=== PATIENT | male | born 1935 | race Caucasian/White ===

== ENCOUNTER 2016-07-21 15:09 | Inpatient (IN) ==
[2016-07-21] MEDS ORDERED: 0.9 % Sodium Chloride 1,000 ML IVC ONE (15:23)
[2016-07-21] MEDS ORDERED: 0.9 % Sodium Chloride 1,000 ML ONE (15:24)
[2016-07-21] MEDS ORDERED: Piperacillin/Tazobactam 3.375 GM in D5% in Water (Mini-Bag+) 100 ML IVPB ONE (15:26)
[2016-07-21] MEDS ORDERED: Vancomycin 1,000 MG in D5% in Water 250 ML IVPB ONE ×2 (15:26→16:00)
[2016-07-21 15:45] LABS: Bilirubin,Urine Negative (Negative); Blood,Urine Trace (Negative); Clarity,Urine Turbid (Clear); Color,Urine Dark Yellow (Yellow); Glucose,Urine (UA) Normal (Normal); Ketones,Urine Negative (Negative); Leukocyte Esterase,Urine Large (Negative); Nitrite,Urine Positive (Negative); Protein,Urine 30 mg/dL (Neg-Trace); Specific Gravity,Urine 1.022 (1.010-1.025); Urobilinogen,Urine Normal (Normal)
[2016-07-21 15:47] LABS: Hematocrit 29.6 % (37.5-50.1); Hemoglobin 10.1 g/dL (12.9-16.9); Immature Platelets 1.9 % (1.1-6.1); Mean Corpuscular HGB Conc 34.1 g/dL (31.6-35.5); Mean Corpuscular Volume 85.1 fL (83.0-100.0); Mean Platelet Volume 9.7 fL (9.4-12.4); Platelet Count 558 K/mcL (140-400); Red Blood Count 3.48 M/mcL (4.19-5.50); Red Cell Distribution Width 13.9 % (11.5-14.5)
[2016-07-21 15:47] LABS: Bacteria,Urine Moderate per hpf (None-Few); Hyaline Casts,Urine None Seen per lpf (None-Few); Squamous Epithelial Cell,Urine Moderate per lpf (None-Few); WBC,Urine TNTC per hpf (0-3)
[2016-07-21 15:58] LABS: INR 1.5; Prothrombin Time 16.4 Seconds (9.4-12.1)
[2016-07-21 16:00] LABS: Activated Partial Thrombo Time 24.9 Seconds (26.0-36.0); Alanine Aminotransferase 29 Units/L (0-55); Albumin/Globulin Ratio 0.3 (1.1-2.2); Alkaline Phosphatase 91 Units/L (38-126); Aspartate Amino Transferase 46 Units/L (5-34); BUN/Creatinine Ratio 35 (6-26); Bilirubin,Total 0.5 mg/dL (0.2-1.2); Blood Urea Nitrogen 37 mg/dL (8-26); Calcium 9.6 mg/dL (8.6-10.8); Carbon Dioxide 20 mEq/L (19-29); Chloride 105 mEq/L (98-109); Globulin 4.8 g/dL (2.4-3.5); Glucose 137 mg/dL (70-99); Osmolality,Calculated 285 (280-300); Potassium 5.3 mEq/L (3.5-4.5); Sodium 132 mEq/L (136-145); Total Protein 6.4 g/dL (6.0-8.3); eGFR For African Americans > 60 (> 60); eGFR For Non-African Americans > 60 (> 60)
[2016-07-21 16:01] LABS: Albumin 1.6 g/dL (3.5-5.0)
[2016-07-21 16:13] LABS: Yeast,Urine Few per hpf (None Seen)
[2016-07-21 16:16] LABS: Monocytes # 0.6 K/mcL (0.0-1.3); Neutrophils # 29.5 K/mcL (1.6-8.9); Platelet Estimate Increased (Normal)
[2016-07-21 16:25] LABS: ABG Base Excess -0.9 mEq/L (-2.0 to 3.0); ABG HCO3 23.4 mEQ/L (21-27); ABG Oxygen Saturation 96 % (95-98); ABG PCO2 36 mmHg (35-45); ABG PH 7.42 pH Units (7.32-7.45); ABG PO2 79 mmHg (85-104); ABG TCO2 24.5 mEq/L (20-26)
[2016-07-21 16:26] LABS: Blood Gas FiO2 28 %; Blood Gas Liter Flow 2 L/MIN
--- NOTE | 2016-07-21 16:28 | Emergency Department Note ---
Disposition Clinical Impression: New onset a-fib, Elevated troponin, Pneumonia, Urinary tract infection Disposition: Admitted As Inpatient Referrals: Danny Watt MD [Primary Care Provider] - Forms: ED Satisfaction Letter Altered Mental Status HPI - General Chief Complaint: ED Altered Mental Status Stated Complaint: AMS Time Seen by Provider: 07/21/16 15:16 Nursing Notes Reviewed: Yes Vital Signs Reviewed: Yes - History of Present Illness HPI Narrative: Patient presents complaint of altered mental status. Patient was started the care facility due to recovered from pneumonia. Per nursing report, patient has been more altered and has been not making sense and the staff. They note that his heart rate was elevated and his blood pressure was low. There is report of fevers and decreased appetite. There is no report of any sick contacts. - Related Data Home Medications Medication Instructions Recorded Confirmed Clopidogrel [Plavix] 75 mg PO DAILY 05/29/16 07/21/16 Docusate [Colace] 100 mg PO DAILY 05/29/16 07/21/16 Gabapentin [Neurontin] 300 mg PO HS 05/29/16 07/21/16 GlipiZIDE XL (24 HR) [Glucotrol XL] 10 mg PO BID 05/29/16 07/21/16 Loratadine [Claritin] 10 mg PO DAILY 05/29/16 07/21/16 Naproxen Sodium 550 mg PO BID 05/29/16 07/21/16 Oxybutynin [Ditropan] 5 mg PO DAILY 05/29/16 07/21/16 Calcium Carbonate/Vitamin D3 1 each PO BID 07/21/16 07/21/16 [Calcium 500 + Vit D Caplet] Ipratropium/Albuterol Neb [Duoneb] 3 ml IH Q4H 07/21/16 07/21/16 Levofloxacin [Levaquin] 500 mg PO DAILY 07/21/16 07/21/16 Tamsulosin [Flomax] 0.4 mg PO DAILY 07/21/16 07/21/16 Previous Rx's Medication Instructions Recorded Amlodipine [Norvasc] 5 mg PO DAILY #30 tablet 06/02/16 Atorvastatin [Lipitor] 40 mg PO HS #30 tablet 06/02/16 Allergies Allergy/AdvReac Type Severity Reaction Status Date / Time codeine Allergy Itching Verified 05/29/16 11:05 morphine Allergy Itching Verified 05/29/16 11:05 Limitations: ROS unobtainable due to patients medical condition Past Medical History - Past Medical History Source: nursing notes reviewed Medical history: Reports: CVA, diabetes, hyperlipidemia Psychiatric history: Reports: no psych history - Social History Smoking Status: Former smoker Smokeless Tobacco Status: No Alcohol use: Reports: occasionally Drug use: Reports: none Physical Exam - General Limitations: altered mental status General appearance: in no apparent distress - Head Head exam: atraumatic, normocephalic - Eye Eye exam: Present: normal appearance, PERRL, EOMI - ENT ENT exam: mucous membranes dry - Neck Neck exam: Present: normal inspection, full ROM, trachea midline - Chest Chest inspection: Present: normal inspection, symmetric chest wall rise - Respiratory Respiratory exam: Present: normal lung sounds bilaterally - Cardiovascular Cardiovascular exam: Present: tachycardia, irregular rhythm - Abdominal Exam Abdominal exam: Present: soft, Non-Tender. Absent: tenderness, distention, guarding, rebound, rigidity - Back Exam Back exam: Present: normal inspection. Absent: tenderness - Neurological Exam Neurological exam: Present: other (Limited secondary to patient mental status) - Psychiatric Psychiatric exam: Present: other (Limited secondary to patient mental status) - Skin Skin exam: Present: warm, dry, intact, normal color Course Vital Signs Temperature 99.1 F 07/21/16 15:11 Pulse Rate 125 07/21/16 15:11 Respiratory Rate 16 07/21/16 15:11 Blood Pressure 75/49 07/21/16 15:11 O2 Sat by Pulse Oximetry 90 L 07/21/16 15:11 Temperature 99.1 F 07/21/16 15:11 Pulse Rate 105 07/21/16 18:24 Respiratory Rate 16 07/21/16 18:24 Blood Pressure 99/50 07/21/16 18:24 O2 Sat by Pulse Oximetry 97 07/21/16 18:24 Oxygen Delivery Oxygen Delivery Nasal Cannula Altered Mental Status - Differential Diagnosis Likely: altered mental status, delirium, hypoglycemia, subarachnoid hemorrhage, sepsis - Lab Data Lab results reviewed: Yes I reviewed the patient's lab results. Result diagrams: 07/21/16 15:35 07/21/16 15:35 Lab Results 07/21/16 07/21/16 07/21/16 Range/Units 15:34 15:35 15:35 WBC 30.1 H* D (4.3-11.1) K/mcL RBC 3.48 L (4.19-5.50) M/mcL Hgb 10.1 L (12.9-16.9) g/dL Hct 29.6 L (37.5-50.1) % MCV 85.1 (83.0-100.0) fL MCH 29.0 (28.0-33.3) pg MCHC 34.1 (31.6-35.5) g/dL RDW 13.9 (11.5-14.5) % Plt Count 558 H (140-400) K/mcL MPV 9.7 (9.4-12.4) fL Seg Neutrophils % 98.0 % Lymphocytes % Test Not Performed Monocytes % 2.0 % Neutrophils # 29.5 H (1.6-8.9) K/mcL Lymphocytes # LAW PROFESSOR Monocytes # 0.6 (0.0-1.3) K/mcL Platelet Estimate Increased H (Normal) Immature Plt Fraction 1.9 (1.1-6.1) % PT 16.4 H (9.4-12.1) Seconds INR 1.5 APTT 24.9 L (26.0-36.0) Seconds ABG pH (7.32-7.45) pH Units ABG pCO2 (35-45) mmHg ABG pO2 (85-104) mmHg ABG HCO3 (21-27) mEQ/L ABG Total CO2 (20-26) mEq/L ABG O2 Saturation (95-98) % ABG Base Excess (-2.0 to 3.0) mEq/L Liter Flow L/MIN Blood Gas Modality Inspired O2 % Sodium (136-145) mEq/L Potassium (3.5-4.5) mEq/L Chloride (98-109) mEq/L Carbon Dioxide (19-29) mEq/L BUN (8-26) mg/dL Creatinine (0.72-1.25) mg/dL Est GFR ( Amer) (> 60) Est GFR (Non-Af Amer) (> 60) BUN/Creatinine Ratio (6-26) Glucose (70-99) mg/dL POC Glucose (58-89) Calculated Osmolality (280-300) Lactic Acid (0.5-2.2) mmol/L Calcium (8.6-10.8) mg/dL Total Bilirubin (0.2-1.2) mg/dL AST (5-34) Units/L ALT (0-55) Units/L Alkaline Phosphatase (38-126) Units/L Troponin I (0-0.03) ng/mL Serum Total Protein (6.0-8.3) g/dL Albumin (3.5-5.0) g/dL Globulin (2.4-3.5) g/dL Albumin/Globulin Ratio (1.1-2.2) Urine Color Dark Yellow (Yellow) Urine Clarity Turbid A (Clear) Urine pH 5.0 (5.0-8.0) pH Units Ur Specific [place] 1.022 (1.010-1.025) Urine Protein 30 H (Neg-Trace) mg/dL Urine Glucose (UA) Normal (Normal) mg/dL Urine Ketones Negative (Negative) mg/dL Urine Blood Trace H (Negative) Urine Nitrite Positive A (Negative) Urine Bilirubin Negative (Negative) Urine Urobilinogen Normal (Normal) mg/dL Ur Leukocyte Esterase Large H (Negative) Urine Microscopic RBC 3-5 H (0-3) per hpf Urine Microscopic WBC TNTC H (0-3) per hpf Ur Squamous Epith Cells Moderate H (None-Few) per lpf Urine Bacteria Moderate H (None-Few) per hpf Hyaline Casts None Seen (None-Few) per lpf Urine Yeast Few H (None Seen) per hpf Ur Culture Indicated? YES A (NO) 07/21/16 07/21/16 07/21/16 Range/Units 15:35 15:35 15:35 WBC (4.3-11.1) K/mcL RBC (4.19-5.50) M/mcL Hgb (12.9-16.9) g/dL Hct (37.5-50.1) % MCV (83.0-100.0) fL MCH (28.0-33.3) pg MCHC (31.6-35.5) g/dL RDW (11.5-14.5) % Plt Count (140-400) K/mcL MPV (9.4-12.4) fL Seg Neutrophils % % Lymphocytes % Monocytes % % Neutrophils # (1.6-8.9) K/mcL Lymphocytes # Monocytes # (0.0-1.3) K/mcL Platelet Estimate (Normal) Immature Plt Fraction (1.1-6.1) % PT (9.4-12.1) Seconds INR APTT (26.0-36.0) Seconds ABG pH (7.32-7.45) pH Units ABG pCO2 (35-45) mmHg ABG pO2 (85-104) mmHg ABG HCO3 (21-27) mEQ/L ABG Total CO2 (20-26) mEq/L ABG O2 Saturation (95-98) % ABG Base Excess (-2.0 to 3.0) mEq/L Liter Flow L/MIN Blood Gas Modality Inspired O2 % Sodium 132 L (136-145) mEq/L Potassium 5.3 H (3.5-4.5) mEq/L Chloride 105 (98-109) mEq/L Carbon Dioxide 20 (19-29) mEq/L BUN 37 H (8-26) mg/dL Creatinine 1.05 (0.72-1.25) mg/dL Est GFR ( Amer) > 60 (> 60) Est GFR (Non-Af Amer) > 60 (> 60) BUN/Creatinine Ratio 35 H (6-26) Glucose 137 H (70-99) mg/dL POC Glucose (58-89) Calculated Osmolality 285 (280-300) Lactic Acid 1.5 (0.5-2.2) mmol/L Calcium 9.6 (8.6-10.8) mg/dL Total Bilirubin 0.5 (0.2-1.2) mg/dL AST 46 H (5-34) Units/L ALT 29 (0-55) Units/L Alkaline Phosphatase 91 (38-126) Units/L Troponin I 0.08 H* (0-0.03) ng/mL Serum Total Protein 6.4 (6.0-8.3) g/dL Albumin 1.6 L (3.5-5.0) g/dL Globulin 4.8 H (2.4-3.5) g/dL Albumin/Globulin Ratio 0.3 L (1.1-2.2) Urine Color (Yellow) Urine Clarity (Clear) Urine pH (5.0-8.0) pH Units Ur Specific [place] (1.010-1.025) Urine Protein (Neg-Trace) mg/dL Urine Glucose (UA) (Normal) mg/dL Urine Ketones (Negative) mg/dL Urine Blood (Negative) Urine Nitrite (Negative) Urine Bilirubin (Negative) Urine Urobilinogen (Normal) mg/dL Ur Leukocyte Esterase (Negative) Urine Microscopic RBC (0-3) per hpf Urine Microscopic WBC (0-3) per hpf Ur Squamous Epith Cells (None-Few) per lpf Urine Bacteria (None-Few) per hpf Hyaline Casts (None-Few) per lpf Urine Yeast (None Seen) per hpf Ur Culture Indicated? (NO) 07/21/16 07/21/16 07/21/16 Range/Units 15:44 16:15 17:16 WBC (4.3-11.1) K/mcL RBC (4.19-5.50) M/mcL Hgb (12.9-16.9) g/dL Hct (37.5-50.1) % MCV (83.0-100.0) fL MCH (28.0-33.3) pg MCHC (31.6-35.5) g/dL RDW (11.5-14.5) % Plt Count (140-400) K/mcL MPV (9.4-12.4) fL Seg Neutrophils % % Lymphocytes % Monocytes % % Neutrophils # (1.6-8.9) K/mcL Lymphocytes # Monocytes # (0.0-1.3) K/mcL Platelet Estimate (Normal) Immature Plt Fraction (1.1-6.1) % PT (9.4-12.1) Seconds INR APTT (26.0-36.0) Seconds ABG pH 7.42 (7.32-7.45) pH Units ABG pCO2 36 (35-45) mmHg ABG pO2 79 L (85-104) mmHg ABG HCO3 23.4 (21-27) mEQ/L ABG Total CO2 24.5 (20-26) mEq/L ABG O2 Saturation 96 (95-98) % ABG Base Excess -0.9 (-2.0 to 3.0) mEq/L Liter Flow 2 L/MIN Blood Gas Modality [place] Inspired O2 28 % Sodium (136-145) mEq/L Potassium (3.5-4.5) mEq/L Chloride (98-109) mEq/L Carbon Dioxide (19-29) mEq/L BUN (8-26) mg/dL Creatinine (0.72-1.25) mg/dL Est GFR ( Amer) (> 60) Est GFR (Non-Af Amer) (> 60) BUN/Creatinine Ratio (6-26) Glucose (70-99) mg/dL POC Glucose 126 H (58-89) Calculated Osmolality (280-300) Lactic Acid 1.2 (0.5-2.2) mmol/L Calcium (8.6-10.8) mg/dL Total Bilirubin (0.2-1.2) mg/dL AST (5-34) Units/L ALT (0-55) Units/L Alkaline Phosphatase (38-126) Units/L Troponin I (0-0.03) ng/mL Serum Total Protein (6.0-8.3) g/dL Albumin (3.5-5.0) g/dL Globulin (2.4-3.5) g/dL Albumin/Globulin Ratio (1.1-2.2) Urine Color (Yellow) Urine Clarity (Clear) Urine pH (5.0-8.0) pH Units Ur Specific [place] (1.010-1.025) Urine Protein (Neg-Trace) mg/dL Urine Glucose (UA) (Normal) mg/dL Urine Ketones (Negative) mg/dL Urine Blood (Negative) Urine Nitrite (Negative) Urine Bilirubin (Negative) Urine Urobilinogen (Normal) mg/dL Ur Leukocyte Esterase (Negative) Urine Microscopic RBC (0-3) per hpf Urine Microscopic WBC (0-3) per hpf Ur Squamous Epith Cells (None-Few) per lpf Urine Bacteria (None-Few) per hpf Hyaline Casts (None-Few) per lpf Urine Yeast (None Seen) per hpf Ur Culture Indicated? (NO) - Radiology Data Radiology results reviewed: Yes I reviewed the patient's radiology results. Chest X-Ray 07/21/16 15:18 IMPRESSION: Bibasilar atelectasis or infiltrate. Recommend follow-up imaging to confirm resolution D/ / Casey Farooq MD / Casey Farooq MD Interpreting Provider: Casey Farooq MD Head CT 07/21/16 16:27 IMPRESSION: No evidence of acute intracranial hemorrhage or mass effect. Stable old left cerebral infarcts. Mild cerebral small vessel ischemic disease without significant interval change. D/ / Luis Mata MD / Luis Mata MD Interpreting Provider: Luis Mata MD - EKG Data EKG attestation: Yes I reviewed and interpreted this EKG. Rate: tachycardia Rhythm: A.Fib TPA Checklist - LKW: 3-4.5 hrs Add. Contraindications Patient/family understanding: The patient/family members have been counseled and understood the risk, benefit , and alternatives of treatment. Critical Care Time Total Critical Care Time: 45 Attestation: Critical care performed: Time is exclusive of separately billable procedures. Time includes: direct patient care, patient reassessment, coordination of patient care, interpretation of data (laboratory data, radiology data, and respiratory data), review of patient's medical records, medical consultation and documentation of patient care. Procedures included in critical care time: Procedures excluded from critical care time:
[2016-07-21] MEDS ORDERED: Naloxone 0.4 MG/ML INJ IVP PRN (19:35)
[2016-07-21] MEDS ORDERED: 0.9 % Sodium Chloride 1,000 ML IVC SCH (19:45)
[2016-07-21] MEDS ORDERED: Albuterol 2.5 MG/3 ML NEBULIZER IH PRN (19:46)
[2016-07-21] MEDS ORDERED: Vancomycin 1,000 MG in D5% in Water 250 ML IVPB SCH (20:00)
--- NOTE | 2016-07-21 20:10 | Internal Med History&Physical ---
Date of Encounter: 07/21/16 Time of Encounter: 20:05 Assessment and Plan (1) Sepsis Current visit: Yes Status: Acute Multiple sources of infection, including pneumonia, UTI, and sacral ulcer. HR > 90 at 159 WBC > 12 at 30 Hypotensive. Lactate checked 1.5 and recheck 1.2 Given fluid bolus (30mL X 59kg) of 1750mL Blood cultures drawn Broad spectrum antibiotic initiated with Vancomycin and Zosyn HR came down with fluid bolus and oxygen Patients blood pressure holding at 92/50 Continue IV fluids 0.9NS at 150mL/HR continue broad spectrum antibiotics with vanc, zosyn and levaquin Await culture results Qualifiers: Sepsis type: sepsis due to unspecified organism Qualified Code(s): A41.9 - Sepsis, unspecified organism (2) Healthcare-associated pneumonia Current visit: No Status: Acute Patient with cough, reports he feels like he has something to cough up, but nothing comes up. CXR with bibasilar infiltrates. Lungs with rales and rhonchi on exam. Satting 99% on 2L NC. Broad spectrum antibiotics with Vancomycin, Zosyn, Levaquin titrate O2 to maintain O2 saturation > 92% duoneb treatments QIDR Albuterol Q2 PRN Mucinex BID Incentive spirometer (3) Decubitus ulcer of sacral region, unstageable Current visit: Yes Status: Acute Wet to dry dressing tonight wound team consulted Turn patient Q2 hrs Xray of sacrum and coccyx to evaluate for osteomyelitis consider MRI if Xray inconclusive. Consider consult to surgery for debridement. (4) New onset a-fib Current visit: Yes Status: Acute Patient with tachycardia on presentation to ED. EKG showed Afib with RVR and HR of 159. After fluid administration and oxygen, HR came down to 90s-105. Repeat EKG shows continued Afib with RVR HR 109. 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 Discussed with Dr. Augustine and will give 0.5 digoxin IVP, plus 0.25 digoxin q6hr X 2. Consider consult to cardiology if heart rate does not come down. (5) Elevated troponin Current visit: Yes Status: Acute Initial troponin in ED 0.08. Patient denies chest pain, pressure or palpitation. Initially in Afib with RVR on presentation and patient is septic. Elevation likely stress related but will trend troponins. 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 (6) Hyperkalemia Current visit: Yes Status: Acute Potassium of 5.3. Fluid boluses and continuous fluids given. 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 Recheck chemistry in morning. (7) Urinary tract infection Current visit: Yes Status: Acute Patient with burr catheter for urinary retention. Urine cloudy with mucus. UA reveals UTI. Treating patient with broad spectrum antibiotics, Vanc, levaquin and Zosyn. Await cultures. Qualifiers: Urinary tract infection type: catheter-associated UTI Indwelling urinary catheter type: indwelling urethral catheter Encounter type: initial encounter Qualified Code(s): T83.511A - Infection and inflammatory reaction due to indwelling urethral catheter, initial encounter; N39.0 - Urinary tract infection , site not specified (8) DVT prophylaxis Current visit: No Status: Acute up to Chair TID anti-embolic stockings 5,000u heparin SQ BID Internal Medicine - H&P: HPI Chief complaint: AMS Admitted From: Emergency Dept Plans for Post Hospital Care: Transfer Care Home Facility History of present illness: Mr. Eldridge is a 80 year old male 3 of CVA, type 2 diabetes, hyperlipidemia, Paget's disease, and recent pneumonia presented [facility] department [facility] for altered mental status, fever, hypoglycemia. Evaluation in the emergency department was significant for white count of 30.1, hyperkalemia with potassium of 5.3, elevated troponin of 0.08, EKG showing atrial fibrillation with rapid ventricular response and heart rate of 159. He was hypotensive. Patient has Burr catheter in place. UA shows concern for UTI, chest x-ray showed bilateral basilar infiltrates concerning for pneumonia. Lactic acid was normal at 1.5 with a redraw showing 1.2. Note fluid bolus total of 1750 mL blood cultures were drawn. He was initiated on broad-spectrum antibiotics with vancomycin and Zosyn. He was placed on oxygen and his heart rate came down with fluid bolus and oxygen. On exam patient is alert and oriented, appears dehydrated. Lungs with bilateral rhonchi on expiration. He is satting 99% on 2 L nasal cannula. Heart has regular rhythm rate in the 90s, urine appears cloudy with mucus in Burr bag. He has a large foul-smelling unstageable sacral ulcer. Past Med Surg Social Fam HX - Past Medical History Medical history: CVA, diabetes, hyperlipidemia, other (Paget's disease, urinary retention) Psychiatric history: no psych history - Past Surgical History Surgical History: orthopedic, other (bilateral knee surgeries) - Social History Smoking Status: Former smoker Smokeless Tobacco Status: No Alcohol use: occasionally Drug use: none Current living situation: ECF - Family History Sister Hx Family Endocrine Disorder: Yes Brother Hx Family Cardiac Disorders: Yes Son Living Status: Hx Family Cardiac Disorders: Yes Mother Living Status: Hx Family Endocrine Disorder: Yes Internal Medicine - H&P: Meds Clopidogrel [Plavix] 75 mg PO DAILY 05/29/16 [History] Docusate [Colace] 100 mg PO DAILY 05/29/16 [History] Gabapentin [Neurontin] 300 mg PO HS 05/29/16 [History] GlipiZIDE XL (24 HR) [Glucotrol XL] 10 mg PO BID 05/29/16 [History] Loratadine [Claritin] 10 mg PO DAILY 05/29/16 [History] Naproxen Sodium 550 mg PO BID 05/29/16 [History] Oxybutynin [Ditropan] 5 mg PO DAILY 05/29/16 [History] Amlodipine [Norvasc] 5 mg PO DAILY #30 tablet 06/02/16 [Rx] Atorvastatin [Lipitor] 40 mg PO HS #30 tablet 06/02/16 [Rx] Calcium Carbonate/Vitamin D3 [Calcium 500 + Vit D Caplet] 1 each PO BID [History] Ipratropium/Albuterol Neb [Duoneb] 3 ml IH Q4H 07/21/16 [History] Levofloxacin [Levaquin] 500 mg PO DAILY 07/21/16 [History] Tamsulosin [Flomax] 0.4 mg PO DAILY 07/21/16 [History] Allergies codeine Allergy (Verified 05/29/16 11:05) Itching morphine Allergy (Verified 05/29/16 11:05) Itching All Systems PM: A 10-system review of systems was performed and is negative for pertinent findings except as documented above in the HPI. - Constitutional Constitutional: no chills, no fever(s), no night sweats - EENT Eyes: no change in vision, no discharge, no pain, no photophobia Ears: no ear discharge, no ear pain, no tinnitus Nose, mouth and throat: dry mouth, nasal congestion, no dysphagia, no nasal discharge, no neck pain, no sore throat - Cardiovascular Cardiovascular ROS IM: no chest pain, no diaphoresis, no dyspnea, no lightheadedness, no palpitations, no syncope - Respiratory Respiratory: cough, no dyspnea, no wheezing, no excessive phlegm production - Gastrointestinal Gastrointestinal: no abdominal pain, no diarrhea, no hematemesis, no hematochezia, no melena, no nausea, no vomiting - Musculoskeletal Musculoskeletal ROS IM: deformity (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), no numbness , no tingling - Integumentary Integumentary IM: skin ulcer (large, unstageable, sacral) - Neurological Neurological ROS: no confusion, no convulsions, no focal weakness, no numbness, no tingling, no tremor(s) - Hematologic/Lymphatic Hematologic/Lymphatic: no easy bruising - Constitutional Vitals: Temp Pulse Resp BP Pulse Ox 99.1 F 105 17 92/47 97 07/21/16 15:11 07/21/16 18:24 07/21/16 18:44 07/21/16 18:44 07/21/16 18:24 General appearance: Present: A&O X 3, pleasant, no acute distress - Head Head exam: Present: atraumatic, normocephalic - Eye Eye exam: Present: PERRL, conjuntiva pink, sclera anicteric Pupils: Present: PERRL - Neck Neck exam general surgery: Present: supple, trachea midline. Absent: lymphadenopathy - Respiratory Respiratory exam: Present: rales, rhonchi. Absent: accessory muscle use, wheezes - Cardiovascular Cardiovascular exam: Present: +S1, +S2, tachycardia. Absent: diastolic murmur, irregular rhythm, systolic murmur - GI/Abdominal GI/Abdominal exam: Present: normal bowel sounds, soft, no peritoneal signs. Absent: distended, tenderness - Additional comments: burr catheter in place - Extremities Exam Extremities exam: Present: warm, radial pulses palpable and symetrical. Absent : calf tenderness, cyanotic, pedal edema - Neurological Exam Neurological exam: Present: CN II-XII intact, oriented X3, no focal deficits. Absent: pronater drift, facial droop, speech deficit - Skin Skin exam: Present: dry Additional comments: large, unstageable sacral ulcer, to sub-cutaneous fat with surrounding black necrotic tissue and further nonblanchable erythema. Internal Med - H&P Results - Labs CBC & Chem 7: 07/21/16 15:35 07/21/16 15:35
[2016-07-21] MEDS: Ipratropium/Albuterol Neb 3 ML IH SCH ×2 (20:12→23:40)
[2016-07-21] MEDS ORDERED: Dextrose Gel 15 GM PO PRN ×2 (20:21)
[2016-07-21] MEDS ORDERED: D5% in Water 1,000 ML IV PRN (20:21)
[2016-07-21] MEDS ORDERED: *HR* Dextrose 50 % in Water (Syg) 50 ML SYRINGE IVP PRN (20:21)
[2016-07-21] MEDS ORDERED: *HR* Digoxin 0.5 MG/2 ML AMPUL IVP ONE (21:21)
[2016-07-21 21:28] LABS: Magnesium 2.1 mg/dL (1.6-2.6); Phosphorous 1.7 mg/dL (2.3-4.7)
[2016-07-21] MEDS: Gabapentin 300 MG CAPSULE PO SCH (22:23)
[2016-07-21] MEDS: Famotidine 20 MG TABLET PO SCH (22:24)
[2016-07-21] MEDS: 0.9 % Sodium Chloride 1,000 ML IVC SCH (22:25)
[2016-07-21] MEDS: Levofloxacin 750 MG/150 ML 750 MG/150 ML BAG IVPB SCH (22:25)
[2016-07-22] MEDS: Piperacillin/Tazobactam 3.375 GM in D5% in Water (Mini-Bag+) 100 ML IVPB SCH ×3 (00:10→17:12)
[2016-07-22] MEDS: *HR* Digoxin 0.5 MG/2 ML AMPUL IVP SCH ×2 (03:30→08:40)
[2016-07-22] MEDS: Ipratropium/Albuterol Neb 3 ML IH SCH ×4 (04:23→22:57)
[2016-07-22 04:32] LABS: BUN/Creatinine Ratio 36 (6-26); Blood Urea Nitrogen 35 mg/dL (8-26); Calcium 8.9 mg/dL (8.6-10.8); Carbon Dioxide 17 mEq/L (19-29); Chloride 109 mEq/L (98-109); Glucose 182 mg/dL (70-99); Osmolality,Calculated 285 (280-300); Sodium 131 mEq/L (136-145); eGFR For African Americans > 60 (> 60); eGFR For Non-African Americans > 60 (> 60)
[2016-07-22 04:39] LABS: Hemoglobin 8.7 g/dL (12.9-16.9)
[2016-07-22 04:40] LABS: Hematocrit 26.6 % (37.5-50.1); Mean Corpuscular HGB Conc 32.7 g/dL (31.6-35.5); Mean Corpuscular Hemoglobin 27.9 pg (28.0-33.3); Mean Corpuscular Volume 85.3 fL (83.0-100.0); Mean Platelet Volume 9.8 fL (9.4-12.4); Platelet Count 476 K/mcL (140-400); Red Blood Count 3.12 M/mcL (4.19-5.50); Red Cell Distribution Width 14.2 % (11.5-14.5)
[2016-07-22 04:54] LABS: Thyroid Stimulating Hormone 0.633 mcIU/mL (0.350-4.840)
[2016-07-22 05:33] LABS: Lymphocytes # 0.6 K/mcL (0.6-4.6); Monocytes # 0.6 K/mcL (0.0-1.3); Neutrophils # 26.3 K/mcL (1.6-8.9)
[2016-07-22 05:34] LABS: Hypochromasia Present (Not Present)
[2016-07-22] MEDS: 0.9 % Sodium Chloride 1,000 ML IVC SCH (06:03)
[2016-07-22] MEDS: *HR* Heparin 5,000 UNIT/ML VIAL SQ SCH ×2 (06:04→17:12)
[2016-07-22] MEDS: Vancomycin 750 MG in D5% in Water 250 ML IVPB SCH ×2 (06:04→17:11)
[2016-07-22 08:17] LABS: Enterococcus by PCR ***DETECTED*** (Not Detect); vanA/B Vancomycin-Resist Genes Not Detected (Not Detect)
[2016-07-22 08:18] LABS: Acinetobacter baumannii by PCR Not Detected (Not Detect); Candida albicans by PCR Not Detected (Not Detect); Candida glabrata by PCR Not Detected (Not Detect); Candida krusei by PCR Not Detected (Not Detect); Candida parapsilosis by PCR Not Detected (Not Detect); Candida tropicalis by PCR Not Detected (Not Detect); Escherichia coli by PCR Not Detected (Not Detect); Klebsiella oxytoca by PCR Not Detected (Not Detect); Klebsiella pneumoniae by PCR Not Detected (Not Detect); Pseudomonas aeruginosa by PCR Not Detected (Not Detect); Serratia marcescens by PCR Not Detected (Not Detect); Staphylococcus aureus by PCR Not Detected (Not Detect); Streptococcus agalactiae(B)PCR Not Detected (Not Detect); Streptococcus by PCR Not Detected (Not Detect); Streptococcus pneumoniae PCR Not Detected (Not Detect); Streptococcus pyogenes (A) PCR Not Detected (Not Detect)
[2016-07-22] MEDS: Loratadine 10 MG TABLET PO SCH (08:37)
[2016-07-22] MEDS: Famotidine 20 MG TABLET PO SCH ×2 (08:37→22:20)
[2016-07-22] MEDS: Levofloxacin 750 MG/150 ML 750 MG/150 ML BAG IVPB SCH (08:38)
[2016-07-22] MEDS: Insulin LISPRO 300 UNITS/3 ML VIAL SQ SCH ×4 (08:41→22:18)
--- NOTE | 2016-07-22 09:11 | Electrocardiograph Report ---
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
--- NOTE | 2016-07-22 09:14 | Electrocardiograph Report ---
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
[2016-07-22] MEDS: Gentamicin Oint 15 GM TUBE TP SCH ×2 (17:14→22:22)
--- NOTE | 2016-07-22 18:16 | Internal Med Progress Note ---
Date of Encounter: 07/22/16 Time of Encounter: 15:20 - Assessment and plan (1) Decubitus ulcer of sacral region, unstageable Current Visit: Yes Status: Acute Assessment and plan: This is unstageble sacral pressure ulcer. Wound care team is consulted. We will consult surgical team, for possible debridement. Continue with current antibiotics (2) Elevated troponin Current Visit: Yes Status: Acute Assessment and plan: Possibly secondary to sepsis. Monitor (3) Hyperkalemia Current Visit: Yes Status: Acute Assessment and plan: Treat with Kayexalate (4) Sepsis Current Visit: Yes Status: Acute Assessment and plan: Possibly multifactorial - UTI; sacral pressure ulcer and possible pneumonia. Pt is on broad spectrum antibiotics - Vancomycin, zosyn and levofloxacin - continue current antibiotics Qualifiers: Sepsis type: sepsis due to unspecified organism Qualified Code(s): A41.9 - Sepsis, unspecified organism (5) Urinary tract infection Current Visit: Yes Status: Acute Assessment and plan: Urine cultures show gram negative rods. Continue Zosyn Qualifiers: Urinary tract infection type: catheter-associated UTI Indwelling urinary catheter type: indwelling urethral catheter Encounter type: initial encounter Qualified Code(s): T83.511A - Infection and inflammatory reaction due to indwelling urethral catheter, initial encounter; N39.0 - Urinary tract infection , site not specified (6) DVT prophylaxis Current Visit: No Status: Acute Assessment and plan: Continue heparin (7) Healthcare-associated pneumonia Current Visit: No Status: Acute (8) Diabetes Current Visit: No Status: Chronic Assessment and plan: Continue sliding scale insulin Qualifiers: Diabetes mellitus type: type 2 Diabetes mellitus complication status: with circulatory complication Diabetes mellitus complication detail: with other circulatory complications Diabetes mellitus halfway insulin use: without halfway use Qualified Code(s): E11.59 - Type 2 diabetes mellitus with other circulatory complications (9) Bacteremia due to Enterococcus Current Visit: Yes Status: Acute Assessment and plan: Sensitivities pending. Continue IV vancomycin. - Subjective Interval history: Pt is seen and examined at the bedside and chart reviewed. Pt reports cough but is not able to expected sputum. Reports some pain in the sacral area. Denies nausea, vomiting, fever, chills. - Constitutional Vitals: Temp Pulse Resp BP Pulse Ox 98 F 96 16 119/53 99 07/22/16 16:31 07/22/16 16:31 07/22/16 16:31 07/22/16 16:31 07/22/16 16:31 Exam: General: Not in acute distress at the time of my evaluation Lungs: Clear to auscultation Cardiac: Regular rate and rhythm. No significant murmurs Abdomen: Soft, non tender. Bowel sounds present Neurological: Alert and oriented. Known history of CVA, with left sided residual weakness Psych: Not agrressive or agitated Extremities: no significant leg edema Skin: There is unstageable pressure ulcer in the sacral area, with eschar present Internal Medicine: Result - Labs CBC & Chem 7: 07/22/16 04:03 07/22/16 04:03 Labs: Short CBC 07/22/16 Range/Units 04:03 WBC 27.4 H (4.3-11.1) K/mcL Hgb 8.7 L (12.9-16.9) g/dL Hct 26.6 L (37.5-50.1) % Plt Count 476 H (140-400) K/mcL Neutrophils # 26.3 H (1.6-8.9) K/mcL BMP 07/22/16 04:03 Sodium 131 L Potassium 5.0 H Chloride 109 Carbon Dioxide 17 L BUN 35 H Creatinine 0.98 Glucose 182 H Calcium 8.9 Cardiac Enzymes 07/21/16 07/22/16 Range/Units 21:08 04:03 Troponin I 0.09 H* 0.08 H* (0-0.03) ng/mL ITS Impressions Chest X-Ray 07/21/16 15:18 IMPRESSION: Bibasilar atelectasis or infiltrate. Recommend follow-up imaging to confirm resolution D/ / Casey Farooq MD / Casey Farooq MD Interpreting Provider: Casey Farooq MD Head CT 07/21/16 16:27 IMPRESSION: No evidence of acute intracranial hemorrhage or mass effect. Stable old left cerebral infarcts. Mild cerebral small vessel ischemic disease without significant interval change. D/ / Luis Mata MD / Luis Mata MD Interpreting Provider: Luis Mata MD Sacrum and Coccyx X-Ray 07/21/16 21:11 IMPRESSION: Sacral decubitus ulcer. No radiographic evidence of acute osteomyelitis. D/ / 07/21/2016 23:28:37 Shahid Ayala MD / lgray Interpreting Provider: Shahid Ayala MD Microbiology 07/21/16 15:34 Urine Culture - Preliminary Urine,Catheterized Gram Negative Garret 07/21/16 15:35 Blood Culture - Preliminary Peripheral Venipuncture Gram Positive Cocci - ABG Interpretation ABG results: ABG ABG pH 7.42 pH Units (7.32-7.45) 07/21/16 16:15 ABG pCO2 36 mmHg (35-45) 07/21/16 16:15 ABG pO2 79 mmHg (85-104) L 07/21/16 16:15 ABG O2 Saturation 96 % (95-98) 07/21/16 16:15 PT/INR, D-dimer PT 16.4 Seconds (9.4-12.1) H 07/21/16 15:35 - Impressions Impressions Sacrum and Coccyx X-Ray 07/21/16 21:11 IMPRESSION: Sacral decubitus ulcer. No radiographic evidence of acute osteomyelitis. D/ / 07/21/2016 23:28:37 Shahid Ayala MD / lgray Interpreting Provider: Shahid Ayala MD - VTE Documentation of Mechanical Device: Intermittent pneumatic compression device Consult Discharge Plan - Plan Referrals: Danny Watt MD [Primary Care Provider] -
[2016-07-22] MEDS: Gabapentin 300 MG CAPSULE PO SCH (22:20)
[2016-07-22] MEDS: Lactobacillus 1 EACH CAP.SPRINK PO SCH (22:20)
[2016-07-23] MEDS: Piperacillin/Tazobactam 3.375 GM in D5% in Water (Mini-Bag+) 100 ML IVPB SCH ×4 (00:11→23:43)
[2016-07-23] MEDS: Ipratropium/Albuterol Neb 3 ML IH SCH ×4 (04:16→22:15)
[2016-07-23 04:39] LABS: Hematocrit 23.9 % (37.5-50.1); Hemoglobin 8.1 g/dL (12.9-16.9); Mean Corpuscular HGB Conc 33.9 g/dL (31.6-35.5); Mean Corpuscular Hemoglobin 28.7 pg (28.0-33.3); Mean Corpuscular Volume 84.8 fL (83.0-100.0); Mean Platelet Volume 9.5 fL (9.4-12.4); Platelet Count 436 K/mcL (140-400); Red Blood Count 2.82 M/mcL (4.19-5.50); Red Cell Distribution Width 14.3 % (11.5-14.5)
[2016-07-23 04:58] LABS: BUN/Creatinine Ratio 32 (6-26); Blood Urea Nitrogen 28 mg/dL (8-26); Calcium 9.1 mg/dL (8.6-10.8); Carbon Dioxide 18 mEq/L (19-29); Chloride 109 mEq/L (98-109); Glucose 194 mg/dL (70-99); Magnesium 1.9 mg/dL (1.6-2.6); Osmolality,Calculated 281 (280-300); Potassium 4.6 mEq/L (3.5-4.5); Sodium 130 mEq/L (136-145); eGFR For African Americans > 60 (> 60); eGFR For Non-African Americans > 60 (> 60)
[2016-07-23] MEDS: Vancomycin 750 MG in D5% in Water 250 ML IVPB SCH ×2 (05:49→17:28)
[2016-07-23] MEDS: *HR* Heparin 5,000 UNIT/ML VIAL SQ SCH ×2 (05:49→17:28)
[2016-07-23] MEDS: Loratadine 10 MG TABLET PO SCH (08:53)
[2016-07-23] MEDS: Lactobacillus 1 EACH CAP.SPRINK PO SCH ×2 (08:53→21:05)
[2016-07-23] MEDS: Famotidine 20 MG TABLET PO SCH ×2 (08:54→21:05)
[2016-07-23] MEDS: Levofloxacin 750 MG/150 ML 750 MG/150 ML BAG IVPB SCH (08:55)
[2016-07-23] MEDS: Insulin LISPRO 300 UNITS/3 ML VIAL SQ SCH ×4 (09:38→21:05)
[2016-07-23] MEDS: Gentamicin Oint 15 GM TUBE TP SCH (09:39)
--- NOTE | 2016-07-23 11:37 | General Surgery Consult Note ---
<Geno De Anda Luis - Last Filed: 07/23/16 11:30> Date of Encounter: 07/23/16 Time of Encounter: 11:00 Assessment and Plan (1) Decubitus ulcer of sacral region, unstageable Current Visit: Yes Status: Acute Bedside Debridement today Local wound care daily Turn every 2 hours Supportive care Will need outpatient follow-up in wound care- likely will need serial debridements Surgery will continue to follow and assess progress (2) Sepsis Current Visit: Yes Status: Acute IV antibiotics- currently on Vancomycin, Zosyn, Levaquin Management per medicine service Qualifiers: Sepsis type: sepsis due to unspecified organism Qualified Code(s): A41.9 - Sepsis, unspecified organism (3) Pneumonia Current Visit: Yes Status: Acute IV antibiotics Management per medicine service Qualifiers: Pneumonia type: due to unspecified organism Laterality: bilateral Lung location: lower lobe of lung Qualified Code(s): J18.9 - Pneumonia, unspecified organism (4) Elevated troponin Current Visit: Yes Status: Acute management per medicine service (5) Urinary tract infection Current Visit: Yes Status: Acute Culture pending IV antibiotics Management per medicine service Qualifiers: Urinary tract infection type: catheter-associated UTI Indwelling urinary catheter type: indwelling urethral catheter Encounter type: initial encounter Qualified Code(s): T83.511A - Infection and inflammatory reaction due to indwelling urethral catheter, initial encounter; N39.0 - Urinary tract infection , site not specified (6) Hyperlipidemia Current Visit: No Status: Chronic Qualifiers: Hyperlipidemia type: unspecified Qualified Code(s): E78.5 - Hyperlipidemia , unspecified (7) Diabetes Current Visit: No Status: Chronic Management per medicine service Qualifiers: Diabetes mellitus type: type 2 Diabetes mellitus complication status: with circulatory complication Diabetes mellitus complication detail: with other circulatory complications Diabetes mellitus fci insulin use: without fci use Qualified Code(s): E11.59 - Type 2 diabetes mellitus with other circulatory complications (8) Hypertension Current Visit: No Status: Chronic Normotensive Management per medicine service Qualifiers: Hypertension type: essential hypertension Qualified Code(s): I10 - Essential (primary) hypertension History of Present Illness Consult date: 07/23/16 Reason for consult: wound care (sacral decubitus ulcer) Requesting physician: Alona Burrows History of present illness: Mr. Eldridge is a very pleasant 80 year old male with a past medical history for CVA, Diabetes Mellitus, Arthritis, Vit. D deficiency, urinary retention, previous UTI hypertension, HLD who presented to the ED from [facility] with altered mental status. He has been at [facility] since having an acute CVA 05/30/16. The is present at the bedside and provides much of the history. She states that there has been an ulcer present for the past few weeks and that it has been increasing in size. The patient did have a significant leukocytosis on presentation. UA shows evidence of UTI and culture is pending. CXR shows concerns for atelectasis vs. pneumonia. Sacral/ Coccyx xray shows now evidence of osteomyelitis. We have been asked to see and evaluate the patient for treatment of his decubitus ulcer. Past Med Surg Social Fam HX - Past Medical History Source: old records reviewed Medical history: arthritis, CVA (05/2016), diabetes, hyperlipidemia, other ( Paget's disease, urinary retention) Psychiatric history: no psych history - Past Surgical History Surgical History: herniorrhaphy, orthopedic, other (bilateral knee replacement surgeries, back surgery) - Social History Smoking Status: Former smoker Smokeless Tobacco Status: No Alcohol use: occasionally Drug use: none Current living situation: [facility]CF (rehab) Activity Level: Wheelchair bound - Family History Sister Hx Family Endocrine Disorder: Yes Brother Hx Family Cardiac Disorders: Yes Son Living Status: Hx Family Cardiac Disorders: Yes Mother Living Status: Hx Family Endocrine Disorder: Yes Medications and Allergies Clopidogrel [Plavix] 75 mg PO DAILY 05/29/16 [History] Docusate [Colace] 100 mg PO DAILY 05/29/16 [History] Gabapentin [Neurontin] 300 mg PO HS 05/29/16 [History] GlipiZIDE XL (24 HR) [Glucotrol XL] 10 mg PO BID 05/29/16 [History] Loratadine [Claritin] 10 mg PO DAILY 05/29/16 [History] Naproxen Sodium 550 mg PO BID 05/29/16 [History] Oxybutynin [Ditropan] 5 mg PO DAILY 05/29/16 [History] Amlodipine [Norvasc] 5 mg PO DAILY #30 tablet 06/02/16 [Rx] Atorvastatin [Lipitor] 40 mg PO HS #30 tablet 06/02/16 [Rx] Calcium Carbonate/Vitamin D3 [Calcium 500 + Vit D Caplet] 1 each PO BID [History] Ipratropium/Albuterol Neb [Duoneb] 3 ml IH Q4H 07/21/16 [History] Levofloxacin [Levaquin] 500 mg PO DAILY 07/21/16 [History] Tamsulosin [Flomax] 0.4 mg PO DAILY 07/21/16 [History] Allergies codeine Allergy (Verified 05/29/16 11:05) Itching morphine Allergy (Verified 05/29/16 11:05) Itching Review of Systems ROS unobtainable: due to mental status (HPI obtained from the patient's at the bedside and the primary nurse) All systems PM: A 10-system review of systems was performed and is negative for pertinent findings except as documented above in the HPI. General Surgery Exam Initial Vital Signs Temp Pulse Resp BP Pulse Ox 99.1 F 125 16 75/49 90 L 07/21/16 15:11 07/21/16 15:11 07/21/16 15:11 07/21/16 15:11 07/21/16 15:11 - General physical appearance well developed, no distress, no pain, chronically ill - Eyes normal ocular movement - ENT normal mucosa, atraumatic, normocephalic - Neck trachea midline - Respiratory normal respiratory effort, clear to auscultation, other (diminished bibasilar bases) - Cardiovascular Cardiovascular exam: Present: irregular rhythm - Abdomen Abdomen general surgery: Present: bowel sounds present, soft, non tender - Integumentary Integumentary general surgery: Present: other (Sacral decubitus ulcer- unstageable with mild surrounding erythema. Moderate amount of foul smelling drainage noted.) - Neurologic Present: CN 2-12 grossly intact - Musculoskeletal Present: other (severe deconditioning) - Psychiatric Psychiatric general surgery: Present: oriented to person, oriented to place, speech is normal Exam Initial Vital Signs Temp Pulse Resp BP Pulse Ox 99.1 F 125 16 75/49 90 L 07/21/16 15:11 07/21/16 15:11 07/21/16 15:11 07/21/16 15:11 07/21/16 15:11 Results - Labs 07/23/16 04:16 07/23/16 04:16 Abnormal lab results WBC 24.8 K/mcL (4.3-11.1) H 07/23/16 04:16 RBC 2.82 M/mcL (4.19-5.50) L 07/23/16 04:16 Hgb 8.1 g/dL (12.9-16.9) L 07/23/16 04:16 Hct 23.9 % (37.5-50.1) L 07/23/16 04:16 Plt Count 436 K/mcL (140-400) H 07/23/16 04:16 Band Neutrophils % 8.0 % (0-4) H 07/22/16 04:03 Neutrophils # 26.3 K/mcL (1.6-8.9) H 07/22/16 04:03 Platelet Estimate Slight increase (Normal) H 07/22/16 04:03 Hypochromasia Present (Not Present) A 07/22/16 04:03 PT 16.4 Seconds (9.4-12.1) H 07/21/16 15:35 APTT 24.9 Seconds (26.0-36.0) L 07/21/16 15:35 ABG pO2 79 mmHg (85-104) L 07/21/16 16:15 Sodium 130 mEq/L (136-145) L 07/23/16 04:16 Potassium 4.6 mEq/L (3.5-4.5) H 07/23/16 04:16 Carbon Dioxide 18 mEq/L (19-29) L 07/23/16 04:16 BUN 28 mg/dL (8-26) H 07/23/16 04:16 BUN/Creatinine Ratio 32 (6-26) H 07/23/16 04:16 Glucose 194 mg/dL (70-99) H 07/23/16 04:16 POC Glucose 212 (58-89) H 07/22/16 20:39 Phosphorus 1.7 mg/dL (2.3-4.7) L 07/21/16 21:08 AST 46 Units/L (5-34) H 07/21/16 15:35 Troponin I 0.08 ng/mL (0-0.03) H* 07/22/16 04:03 Albumin 1.6 g/dL (3.5-5.0) L 07/21/16 15:35 Globulin 4.8 g/dL (2.4-3.5) H 07/21/16 15:35 Albumin/Globulin Ratio 0.3 (1.1-2.2) L 07/21/16 15:35 Urine Clarity Turbid (Clear) A 07/21/16 15:34 Urine Protein 30 mg/dL (Neg-Trace) H 07/21/16 15:34 Urine Blood Trace (Negative) H 07/21/16 15:34 Urine Nitrite Positive (Negative) A 07/21/16 15:34 Ur Leukocyte Esterase Large (Negative) H 07/21/16 15:34 Urine Microscopic RBC 3-5 per hpf (0-3) H 07/21/16 15:34 Urine Microscopic WBC TNTC per hpf (0-3) H 07/21/16 15:34 Ur Squamous Epith Cells Moderate per lpf (None-Few) H 07/21/16 15:34 Urine Bacteria Moderate per hpf (None-Few) H 07/21/16 15:34 Urine Yeast Few per hpf (None Seen) H 07/21/16 15:34 Ur Culture Indicated? YES (NO) A 07/21/16 15:34 Enterococcus sp PCR DETECTED (Not Detect) A 07/21/16 15:35 Diabetes panel 07/23/16 Range/Units 04:16 Sodium 130 L (136-145) mEq/L Potassium 4.6 H (3.5-4.5) mEq/L Chloride 109 (98-109) mEq/L Carbon Dioxide 18 L (19-29) mEq/L BUN 28 H (8-26) mg/dL Creatinine 0.88 (0.72-1.25) mg/dL Glucose 194 H (70-99) mg/dL Calcium 9.1 (8.6-10.8) mg/dL Calcium panel 07/23/16 Range/Units 04:16 Calcium 9.1 (8.6-10.8) mg/dL Pituitary panel 07/23/16 Range/Units 04:16 Sodium 130 L (136-145) mEq/L Potassium 4.6 H (3.5-4.5) mEq/L Chloride 109 (98-109) mEq/L Carbon Dioxide 18 L (19-29) mEq/L BUN 28 H (8-26) mg/dL Creatinine 0.88 (0.72-1.25) mg/dL Glucose 194 H (70-99) mg/dL Calcium 9.1 (8.6-10.8) mg/dL Adrenal panel 07/23/16 Range/Units 04:16 Sodium 130 L (136-145) mEq/L Potassium 4.6 H (3.5-4.5) mEq/L Chloride 109 (98-109) mEq/L Carbon Dioxide 18 L (19-29) mEq/L BUN 28 H (8-26) mg/dL Creatinine 0.88 (0.72-1.25) mg/dL Glucose 194 H (70-99) mg/dL Calcium 9.1 (8.6-10.8) mg/dL All other labs normal. - Imaging Chest x-ray: report reviewed Additional studies: Chest X-Ray 07/21/16 15:18 IMPRESSION: Bibasilar atelectasis or infiltrate. Recommend follow-up imaging to confirm resolution D/ / Casey Farooq MD / Casey Farooq MD Interpreting Provider: Casey Farooq MD Head CT 07/21/16 16:27 IMPRESSION: No evidence of acute intracranial hemorrhage or mass effect. Stable old left cerebral infarcts. Mild cerebral small vessel ischemic disease without significant interval change. D/ / Luis Mata MD / Luis Mata MD Interpreting Provider: Luis Mata MD Sacrum and Coccyx X-Ray 07/21/16 21:11 IMPRESSION: Sacral decubitus ulcer. No radiographic evidence of acute osteomyelitis. D/ / 07/21/2016 23:28:37 Shahid Ayala MD / ashwin Interpreting Provider: Shahid Ayala MD Consult Discharge Plan - Plan Referrals: Danny Watt MD [Primary Care Provider] - - Attending Attestation I examined this patient and my medical decision-making was reviewed with the SHOOTER HELPER/PA/Advanced Practice Nurse/Resident Physician. I agree with the documented findings, disposition and treatment plan as described except to the extent set forth below. <Lc Reed - Last Filed: 07/23/16 17:05> Review of Systems All systems PM: A 10-system review of systems was performed and is negative for pertinent findings except as documented above in the HPI. General Surgery Exam Initial Vital Signs Temp Pulse Resp BP Pulse Ox 99.1 F 125 16 75/49 90 L 07/21/16 15:11 07/21/16 15:11 07/21/16 15:11 07/21/16 15:11 07/21/16 15:11 Exam Initial Vital Signs Temp Pulse Resp BP Pulse Ox 99.1 F 125 16 75/49 90 L 07/21/16 15:11 07/21/16 15:11 07/21/16 15:11 07/21/16 15:11 07/21/16 15:11 Results - Labs 07/23/16 04:16 07/23/16 04:16 Abnormal lab results WBC 24.8 K/mcL (4.3-11.1) H 07/23/16 04:16 RBC 2.82 M/mcL (4.19-5.50) L 07/23/16 04:16 Hgb 8.1 g/dL (12.9-16.9) L 07/23/16 04:16 Hct 23.9 % (37.5-50.1) L 07/23/16 04:16 Plt Count 436 K/mcL (140-400) H 07/23/16 04:16 Band Neutrophils % 8.0 % (0-4) H 07/22/16 04:03 Neutrophils # 26.3 K/mcL (1.6-8.9) H 07/22/16 04:03 Platelet Estimate Slight increase (Normal) H 07/22/16 04:03 Hypochromasia Present (Not Present) A 07/22/16 04:03 PT 16.4 Seconds (9.4-12.1) H 07/21/16 15:35 APTT 24.9 Seconds (26.0-36.0) L 07/21/16 15:35 ABG pO2 79 mmHg (85-104) L 07/21/16 16:15 Sodium 130 mEq/L (136-145) L 07/23/16 04:16 Potassium 4.6 mEq/L (3.5-4.5) H 07/23/16 04:16 Carbon Dioxide 18 mEq/L (19-29) L 07/23/16 04:16 BUN 28 mg/dL (8-26) H 07/23/16 04:16 BUN/Creatinine Ratio 32 (6-26) H 07/23/16 04:16 Glucose 194 mg/dL (70-99) H 07/23/16 04:16 POC Glucose 103 (58-89) H 07/23/16 16:09 Phosphorus 1.7 mg/dL (2.3-4.7) L 07/21/16 21:08 AST 46 Units/L (5-34) H 07/21/16 15:35 Troponin I 0.08 ng/mL (0-0.03) H* 07/22/16 04:03 Albumin 1.6 g/dL (3.5-5.0) L 07/21/16 15:35 Globulin 4.8 g/dL (2.4-3.5) H 07/21/16 15:35 Albumin/Globulin Ratio 0.3 (1.1-2.2) L 07/21/16 15:35 Urine Clarity Turbid (Clear) A 07/21/16 15:34 Urine Protein 30 mg/dL (Neg-Trace) H 07/21/16 15:34 Urine Blood Trace (Negative) H 07/21/16 15:34 Urine Nitrite Positive (Negative) A 07/21/16 15:34 Ur Leukocyte Esterase Large (Negative) H 07/21/16 15:34 Urine Microscopic RBC 3-5 per hpf (0-3) H 07/21/16 15:34 Urine Microscopic WBC TNTC per hpf (0-3) H 07/21/16 15:34 Ur Squamous Epith Cells Moderate per lpf (None-Few) H 07/21/16 15:34 Urine Bacteria Moderate per hpf (None-Few) H 07/21/16 15:34 Urine Yeast Few per hpf (None Seen) H 07/21/16 15:34 Ur Culture Indicated? YES (NO) A 07/21/16 15:34 Enterococcus sp PCR DETECTED (Not Detect) A 07/21/16 15:35 Diabetes panel 07/23/16 Range/Units 04:16 Sodium 130 L (136-145) mEq/L Potassium 4.6 H (3.5-4.5) mEq/L Chloride 109 (98-109) mEq/L Carbon Dioxide 18 L (19-29) mEq/L BUN 28 H (8-26) mg/dL Creatinine 0.88 (0.72-1.25) mg/dL Glucose 194 H (70-99) mg/dL Calcium 9.1 (8.6-10.8) mg/dL Calcium panel 07/23/16 Range/Units 04:16 Calcium 9.1 (8.6-10.8) mg/dL Pituitary panel 07/23/16 Range/Units 04:16 Sodium 130 L (136-145) mEq/L Potassium 4.6 H (3.5-4.5) mEq/L Chloride 109 (98-109) mEq/L Carbon Dioxide 18 L (19-29) mEq/L BUN 28 H (8-26) mg/dL Creatinine 0.88 (0.72-1.25) mg/dL Glucose 194 H (70-99) mg/dL Calcium 9.1 (8.6-10.8) mg/dL Adrenal panel 07/23/16 Range/Units 04:16 Sodium 130 L (136-145) mEq/L Potassium 4.6 H (3.5-4.5) mEq/L Chloride 109 (98-109) mEq/L Carbon Dioxide 18 L (19-29) mEq/L BUN 28 H (8-26) mg/dL Creatinine 0.88 (0.72-1.25) mg/dL Glucose 194 H (70-99) mg/dL Calcium 9.1 (8.6-10.8) mg/dL All other labs normal. - Attending Attestation Lc Reed MD FACS
--- NOTE | 2016-07-23 15:04 | General Surgery Procedure Note ---
Date of procedure: 07/23/16 Pre-op diagnosis: Unstageable sacral decubitus ulcer Post-op diagnosis: same Procedure: After informed consent was obtained and time-out performed, the patient was placed in the left lateral position. A #10 blade scalpel and pick-ups were used to debride the ulcer through, skin, subcutaneous tissue and muscle. The patient tolerated the procedure well and there was minimal bleeding noted. Bleeding was stopped with the use of minimal pressure. There was drainage of a moderate amount of foul smelling drainage. Complications: none Anesthesia: none Surgeon: Geno De Anda Estimated blood loss (cc): 1 Pathology: none sent Condition: stable Disposition: no change
--- NOTE | 2016-07-23 19:54 | Internal Med Progress Note ---
Date of Encounter: 07/23/16 Time of Encounter: 10:20 - Assessment and plan (1) Decubitus ulcer of sacral region, unstageable Current Visit: Yes Status: Acute Assessment and plan: This is unstageble sacral pressure ulcer. Wound care team is consulted. surgical team consulted for possible debridement. Continue with current antibiotics (2) Elevated troponin Current Visit: Yes Status: Acute Assessment and plan: Possibly secondary to sepsis. Monitor (3) Hyperkalemia Current Visit: Yes Status: Resolved Assessment and plan: Treated with Kayexalate. Resolved (4) Sepsis Current Visit: Yes Status: Acute Assessment and plan: Possibly multifactorial - UTI; sacral pressure ulcer and possible pneumonia. Pt is on broad spectrum antibiotics - Vancomycin, zosyn and levofloxacin - discontinue levofloxacin Qualifiers: Sepsis type: sepsis due to unspecified organism Qualified Code(s): A41.9 - Sepsis, unspecified organism (5) Urinary tract infection Current Visit: Yes Status: Acute Assessment and plan: Urine cultures show E Coli. Continue Zosyn Qualifiers: Urinary tract infection type: catheter-associated UTI Indwelling urinary catheter type: indwelling urethral catheter Encounter type: initial encounter Qualified Code(s): T83.511A - Infection and inflammatory reaction due to indwelling urethral catheter, initial encounter; N39.0 - Urinary tract infection , site not specified (6) DVT prophylaxis Current Visit: No Status: Acute Assessment and plan: Continue heparin (7) Healthcare-associated pneumonia Current Visit: No Status: Acute Assessment and plan: CXR suspicious for infiltrate / atelectasis. Continue IV vancomycin and zosyn. Discontinue levofloxacin (8) Diabetes Current Visit: No Status: Chronic Assessment and plan: Continue sliding scale insulin Qualifiers: Diabetes mellitus type: type 2 Diabetes mellitus complication status: with circulatory complication Diabetes mellitus complication detail: with other circulatory complications Diabetes mellitus buttermaker helper insulin use: without care home use Qualified Code(s): E11.59 - Type 2 diabetes mellitus with other circulatory complications (9) Bacteremia due to Enterococcus Current Visit: Yes Status: Acute Assessment and plan: Sensitivities pending. Continue IV vancomycin. - Subjective Interval history: Pt is seen and examined at the bedside and chart reviewed. Pt reports cough but is not able to expected sputum. Denies significant pain, nausea, vomiting, fever, chills. - Constitutional Vitals: Temp Pulse Resp BP Pulse Ox 99.1 F 94 16 116/61 95 07/23/16 15:52 07/23/16 15:57 07/23/16 15:52 07/23/16 15:52 07/23/16 15:52 Exam: General: Not in acute distress at the time of my evaluation Lungs: Clear to auscultation Cardiac: Regular rate and rhythm. No significant murmurs Abdomen: Soft, non tender. Bowel sounds present Neurological: Alert and oriented. Known h/o left hemiparesis Psych: Not aggressive or agitated Extremities: Mild leg edema Skin: unstageable sacral pressure ulcer with eschar Internal Medicine: Result - Labs CBC & Chem 7: 07/23/16 04:16 07/23/16 04:16 Labs: Short CBC 07/23/16 Range/Units 04:16 WBC 24.8 H (4.3-11.1) K/mcL Hgb 8.1 L (12.9-16.9) g/dL Hct 23.9 L (37.5-50.1) % Plt Count 436 H (140-400) K/mcL BMP 07/23/16 04:16 Sodium 130 L Potassium 4.6 H Chloride 109 Carbon Dioxide 18 L BUN 28 H Creatinine 0.88 Glucose 194 H Calcium 9.1 Microbiology 07/21/16 15:42 Blood Culture - Preliminary Peripheral Venipuncture No growth. 07/21/16 15:34 Urine Culture - Final Urine,Catheterized Escherichia coli 07/21/16 15:35 Blood Culture - Preliminary Peripheral Venipuncture Gram Positive Cocci - ABG Interpretation ABG results: ABG ABG pH 7.42 pH Units (7.32-7.45) 07/21/16 16:15 ABG pCO2 36 mmHg (35-45) 07/21/16 16:15 ABG pO2 79 mmHg (85-104) L 07/21/16 16:15 ABG O2 Saturation 96 % (95-98) 07/21/16 16:15 PT/INR, D-dimer PT 16.4 Seconds (9.4-12.1) H 07/21/16 15:35 - Impressions Impressions Sacrum and Coccyx X-Ray 07/21/16 21:11 IMPRESSION: Sacral decubitus ulcer. No radiographic evidence of acute osteomyelitis. D/ / 07/21/2016 23:28:37 Shahid Ayala MD / lgray Interpreting Provider: Shahid Ayala MD - VTE Documentation of Mechanical Device: Intermittent pneumatic compression device Consult Discharge Plan - Plan Referrals: Danny Watt MD [Primary Care Provider] -
[2016-07-23] MEDS: Gabapentin 300 MG CAPSULE PO SCH (21:05)
[2016-07-24] MEDS: 0.9 % Sodium Chloride 1,000 ML IVC SCH ×2 (00:25→16:59)
[2016-07-24] MEDS: Acetaminophen 325 MG TABLET PO PRN ×2 (00:25→21:47)
[2016-07-24 02:39] LABS: Mean Corpuscular HGB Conc 33.3 g/dL (31.6-35.5); Mean Corpuscular Volume 83.9 fL (83.0-100.0); Mean Platelet Volume 9.3 fL (9.4-12.4); Platelet Count 444 K/mcL (140-400); Red Blood Count 2.86 M/mcL (4.19-5.50); Red Cell Distribution Width 14.4 % (11.5-14.5)
[2016-07-24 03:12] LABS: BUN/Creatinine Ratio 25 (6-26); Blood Urea Nitrogen 23 mg/dL (8-26); Calcium 9.1 mg/dL (8.6-10.8); Carbon Dioxide 20 mEq/L (19-29); Chloride 106 mEq/L (98-109); Glucose 207 mg/dL (70-99); Osmolality,Calculated 284 (280-300); Potassium 4.8 mEq/L (3.5-4.5); Sodium 132 mEq/L (136-145); eGFR For African Americans > 60 (> 60); eGFR For Non-African Americans > 60 (> 60)
[2016-07-24] MEDS: Ipratropium/Albuterol Neb 3 ML IH SCH ×4 (04:34→22:41)
[2016-07-24] MEDS: Vancomycin 750 MG in D5% in Water 250 ML IVPB SCH ×2 (05:46→17:00)
[2016-07-24] MEDS: *HR* Heparin 5,000 UNIT/ML VIAL SQ SCH ×2 (05:47→17:00)
[2016-07-24] MEDS: Piperacillin/Tazobactam 3.375 GM in D5% in Water (Mini-Bag+) 100 ML IVPB SCH ×2 (07:35→16:59)
[2016-07-24] MEDS: Lactobacillus 1 EACH CAP.SPRINK PO SCH ×2 (07:36→21:47)
[2016-07-24] MEDS: Loratadine 10 MG TABLET PO SCH (07:36)
[2016-07-24] MEDS: Famotidine 20 MG TABLET PO SCH ×2 (07:36→21:47)
[2016-07-24] MEDS: Insulin LISPRO 300 UNITS/3 ML VIAL SQ SCH ×4 (07:38→21:51)
[2016-07-24 09:58] LABS: % Iron Saturation 21 % (20-55); Iron 21 mcg/dL (65-175); Transferrin 72 mg/dL (174-364)
[2016-07-24] MEDS ORDERED: 0.9 % Sodium Chloride 500 ML IV ONE (17:56)
--- NOTE | 2016-07-24 20:19 | Internal Med Progress Note ---
Date of Encounter: 07/24/16 Time of Encounter: 10:35 - Assessment and plan (1) Decubitus ulcer of sacral region, unstageable Current Visit: Yes Status: Acute Assessment and plan: This is unstageble sacral pressure ulcer. s/p debridement by surgical team. Wound care team is following the pt. Continue with current antibiotics (2) Elevated troponin Current Visit: Yes Status: Acute Assessment and plan: Possibly secondary to sepsis. Monitor (3) Hyperkalemia Current Visit: Yes Status: Resolved Assessment and plan: Treated with Kayexalate. Improving (4) Sepsis Current Visit: Yes Status: Acute Assessment and plan: Possibly multifactorial - UTI; sacral pressure ulcer and possible pneumonia. Pt is on broad spectrum antibiotics - Vancomycin, zosyn Qualifiers: Sepsis type: sepsis due to unspecified organism Qualified Code(s): A41.9 - Sepsis, unspecified organism (5) Urinary tract infection Current Visit: Yes Status: Acute Assessment and plan: Urine cultures show E Coli. Continue Zosyn Qualifiers: Urinary tract infection type: catheter-associated UTI Indwelling urinary catheter type: indwelling urethral catheter Encounter type: initial encounter Qualified Code(s): T83.511A - Infection and inflammatory reaction due to indwelling urethral catheter, initial encounter; N39.0 - Urinary tract infection , site not specified (6) DVT prophylaxis Current Visit: No Status: Acute Assessment and plan: Continue heparin (7) Healthcare-associated pneumonia Current Visit: No Status: Acute Assessment and plan: Possible bacterial pneumonia. CXR suspicious for infiltrate / atelectasis. Continue IV vancomycin and zosyn. (8) Diabetes Current Visit: No Status: Chronic Assessment and plan: Continue sliding scale insulin Qualifiers: Diabetes mellitus type: type 2 Diabetes mellitus complication status: with circulatory complication Diabetes mellitus complication detail: with other circulatory complications Diabetes mellitus termite inspector insulin use: without skilled nursing use Qualified Code(s): E11.59 - Type 2 diabetes mellitus with other circulatory complications (9) Bacteremia due to Enterococcus Current Visit: Yes Status: Acute Assessment and plan: Sensitivities pending. Continue IV vancomycin. (10) Normocytic anemia Current Visit: Yes Status: Acute Assessment and plan: Pt has anemia of chronic disease. Folate level is low - supplements (11) Hyponatremia Current Visit: Yes Status: Acute Assessment and plan: Mild hyponatremia. Monitor - Subjective Interval history: Pt is seen and examined at the bedside and chart reviewed. Pt reports cough but is not able to expectorate sputum. Denies significant pain, nausea, vomiting, fever, chills. - Constitutional Vitals: Temp Pulse Resp BP Pulse Ox 98.7 F 106 15 139/65 98 07/24/16 15:45 07/24/16 19:51 07/24/16 16:05 07/24/16 15:45 07/24/16 16:05 Exam: General: Not in acute distress at the time of my evaluation Lungs: Clear to auscultation Cardiac: Regular rate and rhythm. No significant murmurs Abdomen: Soft, non tender. Bowel sounds present. Davila catheter in place Neurological: Alert. Known left hemiparesis Psych: Not aggressive or agitated Extremities: mild leg edema Skin: Sacral pressure ulcer - dressing in place Internal Medicine: Result - Labs CBC & Chem 7: 07/24/16 02:28 07/24/16 02:28 Labs: Short CBC 07/24/16 Range/Units 02:28 WBC 28.5 H (4.3-11.1) K/mcL Hgb 8.0 L (12.9-16.9) g/dL Hct 24.0 L (37.5-50.1) % Plt Count 444 H (140-400) K/mcL BMP 07/24/16 02:28 Sodium 132 L Potassium 4.8 H Chloride 106 Carbon Dioxide 20 BUN 23 Creatinine 0.93 Glucose 207 H Calcium 9.1 Microbiology 07/21/16 15:35 Blood Culture - Final Peripheral Venipuncture Enterococcus faecalis 07/22/16 19:34 Wound Culture - Final Buttock Normal skin elie. No apparent pathogens isolated. 07/21/16 15:42 Blood Culture - Preliminary Peripheral Venipuncture No growth. 07/21/16 15:34 Urine Culture - Final Urine,Catheterized Escherichia coli - ABG Interpretation ABG results: ABG ABG pH 7.42 pH Units (7.32-7.45) 07/21/16 16:15 ABG pCO2 36 mmHg (35-45) 07/21/16 16:15 ABG pO2 79 mmHg (85-104) L 07/21/16 16:15 ABG O2 Saturation 96 % (95-98) 07/21/16 16:15 PT/INR, D-dimer PT 16.4 Seconds (9.4-12.1) H 07/21/16 15:35 - VTE Documentation of Mechanical Device: Intermittent pneumatic compression device Consult Discharge Plan - Plan Referrals: Danny Watt MD [Primary Care Provider] -
[2016-07-24] MEDS: Gabapentin 300 MG CAPSULE PO SCH (21:47)
[2016-07-25] MEDS: Piperacillin/Tazobactam 3.375 GM in D5% in Water (Mini-Bag+) 100 ML IVPB SCH ×2 (00:24→08:10)
[2016-07-25] MEDS: 0.9 % Sodium Chloride 1,000 ML IVC SCH ×4 (03:52→23:24)
[2016-07-25] MEDS: Ipratropium/Albuterol Neb 3 ML IH SCH ×4 (04:41→22:41)
[2016-07-25] MEDS: *HR* Heparin 5,000 UNIT/ML VIAL SQ SCH ×2 (05:05→17:17)
[2016-07-25] MEDS: Vancomycin 750 MG in D5% in Water 250 ML IVPB SCH ×2 (05:08→17:17)
[2016-07-25 05:23] LABS: Red Cell Distribution Width 14.6 % (11.5-14.5)
[2016-07-25 05:25] LABS: Hematocrit 23.8 % (37.5-50.1); Mean Corpuscular HGB Conc 33.6 g/dL (31.6-35.5); Mean Corpuscular Hemoglobin 28.3 pg (28.0-33.3); Mean Corpuscular Volume 84.1 fL (83.0-100.0); Mean Platelet Volume 9.2 fL (9.4-12.4); Platelet Count 410 K/mcL (140-400); Red Blood Count 2.83 M/mcL (4.19-5.50)
[2016-07-25 05:36] LABS: Alanine Aminotransferase 21 Units/L (0-55); Albumin/Globulin Ratio 0.3 (1.1-2.2); Alkaline Phosphatase 87 Units/L (38-126); Aspartate Amino Transferase 22 Units/L (5-34); BUN/Creatinine Ratio 25 (6-26); Bilirubin,Total 0.7 mg/dL (0.2-1.2); Blood Urea Nitrogen 21 mg/dL (8-26); Calcium 8.9 mg/dL (8.6-10.8); Carbon Dioxide 17 mEq/L (19-29); Chloride 109 mEq/L (98-109); Glucose 211 mg/dL (70-99); Magnesium 1.6 mg/dL (1.6-2.6); Osmolality,Calculated 281 (280-300); Phosphorous 1.5 mg/dL (2.3-4.7); Potassium 4.3 mEq/L (3.5-4.5); Sodium 131 mEq/L (136-145); Total Protein 5.3 g/dL (6.0-8.3); eGFR For African Americans > 60 (> 60); eGFR For Non-African Americans > 60 (> 60)
[2016-07-25 05:39] LABS: Albumin 1.3 g/dL (3.5-5.0)
[2016-07-25 05:57] LABS: Thyroid Stimulating Hormone 0.855 mcIU/mL (0.350-4.840)
[2016-07-25] MEDS: Famotidine 20 MG TABLET PO SCH ×2 (08:10→22:05)
[2016-07-25] MEDS: Lactobacillus 1 EACH CAP.SPRINK PO SCH ×2 (08:10→22:04)
[2016-07-25] MEDS: Folic Acid 1 MG TABLET PO SCH (08:11)
[2016-07-25] MEDS: Loratadine 10 MG TABLET PO SCH (08:11)
[2016-07-25] MEDS: Insulin LISPRO 300 UNITS/3 ML VIAL SQ SCH ×4 (08:13→22:06)
--- NOTE | 2016-07-25 11:57 | Internal Med Progress Note ---
Date of Encounter: 07/25/16 Time of Encounter: 11:57 - Assessment and plan (1) Decubitus ulcer of sacral region, unstageable Current Visit: Yes Status: Acute Assessment and plan: This is unstageble sacral pressure ulcer. s/p debridement by surgical team. Wound care team is following the pt. Continue with current antibiotics (2) Elevated troponin Current Visit: Yes Status: Resolved Assessment and plan: Possibly secondary to sepsis. Monitor (3) Hyperkalemia Current Visit: Yes Status: Resolved Assessment and plan: Treated with Kayexalate. Improving (4) Sepsis Current Visit: Yes Status: Acute Assessment and plan: Possibly multifactorial - UTI; sacral pressure ulcer and possible pneumonia. Pt is on broad spectrum antibiotics - Vancomycin, zosyn Qualifiers: Sepsis type: sepsis due to unspecified organism Qualified Code(s): A41.9 - Sepsis, unspecified organism (5) Urinary tract infection Current Visit: Yes Status: Acute Assessment and plan: Urine cultures show E Coli. Continue meropenem Qualifiers: Urinary tract infection type: catheter-associated UTI Indwelling urinary catheter type: indwelling urethral catheter Encounter type: initial encounter Qualified Code(s): T83.511A - Infection and inflammatory reaction due to indwelling urethral catheter, initial encounter; N39.0 - Urinary tract infection , site not specified (6) DVT prophylaxis Current Visit: No Status: Acute Assessment and plan: Continue heparin (7) Healthcare-associated pneumonia Current Visit: No Status: Acute Assessment and plan: Possible bacterial pneumonia. CXR suspicious for infiltrate / atelectasis. Continue IV vancomycin and meropenem (8) Diabetes Current Visit: No Status: Chronic Assessment and plan: Continue sliding scale insulin Qualifiers: Diabetes mellitus type: type 2 Diabetes mellitus complication status: with circulatory complication Diabetes mellitus complication detail: with other circulatory complications Diabetes mellitus terminal operations manager insulin use: without intermediate use Qualified Code(s): E11.59 - Type 2 diabetes mellitus with other circulatory complications (9) Bacteremia due to Enterococcus Current Visit: Yes Status: Acute Assessment and plan: Sensitive to vancomycin and ampcillin. Continue IV vancomycin. (10) Normocytic anemia Current Visit: Yes Status: Acute Assessment and plan: Pt has anemia of chronic disease. Folate level is low - folate supplements (11) Hyponatremia Current Visit: Yes Status: Acute Assessment and plan: Mild hyponatremia. Monitor (12) New onset a-fib Current Visit: Yes Status: Acute Assessment and plan: Paroxysmal episodes. Started on metoprolol. TSH is normal. Echocardiogram in showed LVEF of 60-65%. Pt has CHADS 2 score of 4. Will consult health plan specialist - Subjective Interval history: Pt is seen and examined at the bedside and chart reviewed. Pt reports cough but is not able to expectorate sputum. Denies significant pain, nausea, vomiting, fever, chills. - Constitutional Vitals: Temp Pulse Resp BP Pulse Ox 99.7 F H 109 18 146/84 96 07/25/16 11:37 07/25/16 11:37 07/25/16 11:37 07/25/16 11:37 07/25/16 11:37 Exam: General: Not in acute distress at the time of my evaluation Lungs: Clear to auscultation Cardiac: Regular rate and rhythm. systolic murmur Abdomen: Soft, non tender. Bowel sounds present Neurological: Alert. Known left hemiparesis Psych: Not aggressive or agitated Extremities: no significant leg edema Skin: Sacral decubitus ulcer with necrotic base. Internal Medicine: Result - Labs CBC & Chem 7: 07/25/16 05:02 07/25/16 05:02 Labs: Short CBC 07/25/16 Range/Units 05:02 WBC 28.9 H (4.3-11.1) K/mcL Hgb 8.0 L (12.9-16.9) g/dL Hct 23.8 L (37.5-50.1) % Plt Count 410 H (140-400) K/mcL BMP 07/25/16 05:02 Sodium 131 L Potassium 4.3 Chloride 109 Carbon Dioxide 17 L BUN 21 Creatinine 0.84 Glucose 211 H Calcium 8.9 Liver Function 07/25/16 Range/Units 05:02 Total Bilirubin 0.7 (0.2-1.2) mg/dL AST 22 (5-34) Units/L ALT 21 (0-55) Units/L Alkaline Phosphatase 87 (38-126) Units/L Albumin 1.3 L (3.5-5.0) g/dL Microbiology 07/24/16 02:24 Blood Culture - Preliminary Peripheral Venipuncture No growth. 07/24/16 03:05 Blood Culture - Preliminary Peripheral Venipuncture No growth. 07/22/16 19:34 Anaerobic Culture - Preliminary Buttock At this time, no anaerobic growth is present. The culture will be finalized after 5 days of incubation. 07/21/16 15:35 Blood Culture - Final Peripheral Venipuncture Enterococcus faecalis 07/22/16 19:34 Wound Culture - Final Buttock Normal skin elie. No apparent pathogens isolated. 07/21/16 15:42 Blood Culture - Preliminary Peripheral Venipuncture No growth. 07/21/16 15:34 Urine Culture - Final Urine,Catheterized Escherichia coli - ABG Interpretation ABG results: ABG ABG pH 7.42 pH Units (7.32-7.45) 07/21/16 16:15 ABG pCO2 36 mmHg (35-45) 07/21/16 16:15 ABG pO2 79 mmHg (85-104) L 07/21/16 16:15 ABG O2 Saturation 96 % (95-98) 07/21/16 16:15 PT/INR, D-dimer PT 16.4 Seconds (9.4-12.1) H 07/21/16 15:35 - VTE Documentation of Mechanical Device: Intermittent pneumatic compression device Consult Discharge Plan - Plan Referrals: Danny Watt MD [Primary Care Provider] -
[2016-07-25] MEDS ORDERED: *HR* Metoprolol 5 MG/5 ML VIAL IVP ONE (12:51)
[2016-07-25] MEDS: Meropenem 1,000 MG in 0.9 % Sodium Chloride Mini Bag 100 ML IVPB SCH ×2 (12:58→22:03)
[2016-07-25] MEDS: Gabapentin 300 MG CAPSULE PO SCH (22:06)
[2016-07-26] MEDS: Acetaminophen 325 MG TABLET PO PRN (01:27)
[2016-07-26 03:49] LABS: Hematocrit 24.2 % (37.5-50.1); Hemoglobin 8.2 g/dL (12.9-16.9); Mean Corpuscular HGB Conc 33.9 g/dL (31.6-35.5); Mean Corpuscular Hemoglobin 27.9 pg (28.0-33.3); Mean Corpuscular Volume 82.3 fL (83.0-100.0); Mean Platelet Volume 9.2 fL (9.4-12.4); Red Blood Count 2.94 M/mcL (4.19-5.50); Red Cell Distribution Width 14.6 % (11.5-14.5)
[2016-07-26] MEDS: Ipratropium/Albuterol Neb 3 ML IH SCH ×2 (03:56→09:52)
[2016-07-26 04:03] LABS: BUN/Creatinine Ratio 24 (6-26); Blood Urea Nitrogen 18 mg/dL (8-26); Calcium 8.6 mg/dL (8.6-10.8); Carbon Dioxide 17 mEq/L (19-29); Chloride 109 mEq/L (98-109); Glucose 179 mg/dL (70-99); Osmolality,Calculated 278 (280-300); Potassium 4.4 mEq/L (3.5-4.5); Sodium 131 mEq/L (136-145); eGFR For African Americans > 60 (> 60); eGFR For Non-African Americans > 60 (> 60)
[2016-07-26] MEDS: Meropenem 1,000 MG in 0.9 % Sodium Chloride Mini Bag 100 ML IVPB SCH ×2 (06:37→11:54)
[2016-07-26] MEDS: *HR* Heparin 5,000 UNIT/ML VIAL SQ SCH ×2 (06:37→17:53)
[2016-07-26] MEDS: 0.9 % Sodium Chloride 1,000 ML IVC SCH ×2 (07:58→16:19)
[2016-07-26] MEDS: Insulin LISPRO 300 UNITS/3 ML VIAL SQ SCH ×4 (07:58→21:36)
[2016-07-26] MEDS: Loratadine 10 MG TABLET PO SCH (07:59)
[2016-07-26] MEDS: Folic Acid 1 MG TABLET PO SCH (07:59)
[2016-07-26] MEDS: Lactobacillus 1 EACH CAP.SPRINK PO SCH ×2 (07:59→21:35)
[2016-07-26] MEDS: Famotidine 20 MG TABLET PO SCH (08:00)
[2016-07-26] MEDS ORDERED: Aminoglycoside Consult 1 EACH MC ONE (08:16)
--- NOTE | 2016-07-26 09:37 | Electrocardiograph Report ---
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
--- NOTE | 2016-07-26 09:43 | Cardiology Consult Note ---
Date of Encounter: 07/26/16 Time of Encounter: 09:40 Assessment and Plan (1) New onset a-fib Current Visit: Yes Status: Acute - initial EKG new onset atrial fibrillation with rapid ventricular response 159 - appears paroxysmal, patient is currently sinus rhythm at 88 on call or contact centre coach and rhythm strips from 05/25 - continue Metoprolol 12.5 BID, BP is stable 128/63 with HR 80-90s - TSH normal - ECHO (05/30) EF 60-65% with mild diastolic dysfunction and LVH - [id number] VASc score 6-7 considered high risk for stroke - reported history of frequent falls, worsening normocytic anemia on admission - likely not a good anticoagulant candidate, may consider in the future if functional status improves - continue plavix as recommended from prior admission and neurology consult - ATRIA bleeding risk score 6 (2) Elevated troponin Current Visit: Yes Status: Resolved - initial troponin in ED 0.08, peak 0.09 - possibly secondary to sepsis - patient denies chest pain, pressure, or palpitations - continue call or contact centre coach (3) Carotid stenosis Current Visit: No Status: Chronic - carotid doppler (05/30) 40-59% bilateral stenosis, recommended follow up in 1 year Qualifiers: Laterality: bilateral Qualified Code(s): 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 (4) Hypertension Current Visit: No Status: Chronic - continue Lopressor, BP and HR remains stable - home med Amlodipine held on admission, continue to hold Qualifiers: Hypertension type: essential hypertension Qualified Code(s): I10 - Essential (primary) hypertension (5) Diabetes Current Visit: No Status: Chronic - managed by primary team, sugars well controlled on sliding scale - HgbA1c 5.7 - hold home Glipizide Qualifiers: Diabetes mellitus type: type 2 Diabetes mellitus complication status: with circulatory complication Diabetes mellitus complication detail: with other circulatory complications Diabetes mellitus superintendent terminal insulin use: without prison use Qualified Code(s): E11.59 - Type 2 diabetes mellitus with other circulatory complications (6) Hyperlipidemia Current Visit: No Status: Chronic - lipid panel normal - continue atorvastatin Qualifiers: Hyperlipidemia type: unspecified Qualified Code(s): E78.5 - Hyperlipidemia , unspecified Discussion w patient/family: The assessment and plan as outlined above was discussed with the patient and/or family members who expressed understanding and agreement. All questions were answered. Thank you for involving us in the care of your patient. Please call with any questions. History of Present Illness Consult date: 07/26/16 Requesting physician: Alona Burrows Consult reason: New onset A-fib Chief complaint: AMS History of present illness: Mr. Eldridge is a 80 year old male with past medical history CVA (05/30/2016), hyperlipidemia, hypertension, type II diabetes presented to the emergency department for altered mental status and fever. Patient admitted for sepsis likely secondary to possible UTI, pneumonia, and sacral decubitus ulcer. Initial lactate 1.5. WBC 30.1, hyperkalemia 5.3, with elevated troponin 0.08. Responsive to fluid bolus. Started on empiric antibiotics. EKG demonstrated new onset atrial fibrillation with rapid ventricular response at heart rate initial 159 and hypotensive. Patient was recently admitted for acute right paracentral pontine infarct found on brain MRI 05/31. Discharged to [facility] for rehab. ECHO 05/30 showed normal EF 60-65% with mild left ventricular diastolic dysfunction. Carotid doppler bilateral stenosis 40-59%. EKG at that time normal sinus with PVC and right ventricular conduction delay. Placed on Plavix 75 mg daily without ASA. Patient at this time denies any chest pain, shortness of breath. Alert and oriented to person, place, and time. Admits to pain in the sacrum and leg weakness from prior stroke. Denies current tobacco use. Denies history of myocardial infarcts , stents, or cardiac ischemic history. Past Med Surg Social Fam HX - Past Medical History Medical history: arthritis, CVA (05/2016), diabetes, hyperlipidemia, other ( Paget's disease, urinary retention) Psychiatric history: no psych history - Past Surgical History Surgical History: herniorrhaphy, orthopedic, other (bilateral knee replacement surgeries, back surgery) - Social History Smoking Status: Former smoker Smokeless Tobacco Status: No Alcohol use: occasionally Drug use: none - Family History Sister Hx Family Endocrine Disorder: Yes Brother Hx Family Cardiac Disorders: Yes Son Living Status: Hx Family Cardiac Disorders: Yes Mother Living Status: Hx Family Endocrine Disorder: Yes Medications and Allergies Clopidogrel [Plavix] 75 mg PO DAILY 05/29/16 [History] Docusate [Colace] 100 mg PO DAILY 05/29/16 [History] Gabapentin [Neurontin] 300 mg PO HS 05/29/16 [History] GlipiZIDE XL (24 HR) [Glucotrol XL] 10 mg PO BID 05/29/16 [History] Loratadine [Claritin] 10 mg PO DAILY 05/29/16 [History] Naproxen Sodium 550 mg PO BID 05/29/16 [History] Oxybutynin [Ditropan] 5 mg PO DAILY 05/29/16 [History] Amlodipine [Norvasc] 5 mg PO DAILY #30 tablet 06/02/16 [Rx] Atorvastatin [Lipitor] 40 mg PO HS #30 tablet 06/02/16 [Rx] Calcium Carbonate/Vitamin D3 [Calcium 500 + Vit D Caplet] 1 each PO BID [History] Ipratropium/Albuterol Neb [Duoneb] 3 ml IH Q4H 07/21/16 [History] Levofloxacin [Levaquin] 500 mg PO DAILY 07/21/16 [History] Tamsulosin [Flomax] 0.4 mg PO DAILY 07/21/16 [History] Allergies codeine Allergy (Verified 05/29/16 11:05) Itching morphine Allergy (Verified 05/29/16 11:05) Itching All Systems Review: A 10-system review of systems was performed and is negative for pertinent findings except as documented above in the HPI. - Constitutional Constitutional: frequent falls (patient denies but RN at bedside reports hx of frequent falls reported by family), weakness, no headache(s) - Cardiovascular Cardiovascular: as per HPI, no dyspnea on exertion, no radiating jaw, neck or arm pain, no palpitations - Respiratory Respiratory: no cough, no dyspnea - Gastrointestinal Gastrointestinal: no abdominal pain - Musculoskeletal Musculoskeletal: abnormal gait - Neurological Neurological: focal weakness, no abnormal speech - Hematological/Lymphatic Hematologic/Lymphatic: no easy bleeding Physical Examination Vital Signs, Last 4 Hours Temp Pulse Resp BP Pulse Ox 07/26/16 07:30 91 07/26/16 07:00 99 F 88 16 128/63 96 General: Conversant, No Apparent Distress HEENT: Atraumatic, Normocephaly, Mucus Membranes Moist Neck: No JVD, Normal carotid pulses Cardiac: Reg Rate and Rhythm, Normal S1 and S2, No Murmur Lungs: Normal Breath Sounds, No Wheeze, Rales, Rhonchi Neuro: Alert and responsive (oriented to person, place, and time), Other (left extremity strength +4/5, known left hemiparesis) Abdomen: Soft, Non-Tender Skin: Other (sacral decubitus ulcer) Musculoskeletal: No Chest Wall Tenderness Extremities: No Clubbing, No Edema, Normal Pulses Results 07/26/16 03:41 07/26/16 03:41 Lab Results 07/26/16 07/26/16 03:41 03:41 WBC 24.6 H Hgb 8.2 L Hct 24.2 L Plt Count 403 H Sodium 131 L Potassium 4.4 Chloride 109 Carbon Dioxide 17 L BUN 18 Creatinine 0.74 Glucose 179 H Calcium 8.6 - Imaging and Cardiology Chest Xray: report reviewed, image reviewed Echo: report reviewed, image reviewed Other Results: carotid doppler (05/30) 40-59% bilateral stenosis - EKG Interpretation EKG results cardiology: personally reviewed, other (initial EKG AFIB c RVR 159, rhythm strips reviewed showed NSR HR 80-100) Consult Discharge Plan - Plan Referrals: Danny Watt MD [Primary Care Provider] -
[2016-07-26] MEDS ORDERED: Piperacillin/Tazobactam 4.5 GM in D5% in Water (Mini-Bag+) 100 ML IVPB ONE (11:51)
[2016-07-26] MEDS ORDERED: Ipratropium Neb 0.5 MG NEBULIZER IH PRN (12:06)
--- NOTE | 2016-07-26 12:09 | Internal Med Progress Note ---
Date of Encounter: 07/26/16 Time of Encounter: 10:00 - Assessment and plan (1) Stage IV pressure ulcer of sacral region Current Visit: Yes Status: Acute Assessment and plan: will need surgical debridement pt still febrile with elevated WBC count spoke with Dr Reed he will evaluate Pt , increase antibiotic coverage, wound care consult (2) Urinary tract infection Current Visit: Yes Status: Acute Assessment and plan: + e coli continue antibiotics burr will need to be change . consult urology , as nursing has difficulty with scrotal swelling and placing catherter Qualifiers: Urinary tract infection type: catheter-associated UTI Indwelling urinary catheter type: indwelling urethral catheter Encounter type: initial encounter Qualified Code(s): T83.511A - Infection and inflammatory reaction due to indwelling urethral catheter, initial encounter; N39.0 - Urinary tract infection , site not specified (3) Sepsis Current Visit: Yes Status: Acute Assessment and plan: due to large and deep sacral decubitus, spoke wiht Dr Reed he will evaluate pt for more debridement Qualifiers: Sepsis type: sepsis due to unspecified organism Qualified Code(s): A41.9 - Sepsis, unspecified organism - Time Spent With Patient Greater than 35 minutes - Subjective Interval history: Pt had low grade fever. still ahs purulent drainage form sacral decubitus, - Constitutional Vitals: Temp Pulse Resp BP Pulse Ox 99.2 F 98 17 168/70 97 07/26/16 11:33 07/26/16 11:33 07/26/16 11:33 07/26/16 11:33 07/26/16 11:33 General appearance: Present: A&O X 2, A&O X 3, pleasant, no acute distress - Respiratory Additional comments: decrease breath sounds at the bases - Cardiovascular Cardiovascular exam: Present: irregular rhythm - GI/Abdominal GI/Abdominal exam: Present: soft, no peritoneal signs - Extremities Exam Extremities exam: Present: warm, radial pulses palpable and symetrical Additional comments: large sacral decubitus stage IV with necrotic borders and purulent drainage Internal Medicine: Result - Labs CBC & Chem 7: 07/26/16 03:41 07/26/16 03:41 Labs: Short CBC 07/26/16 Range/Units 03:41 WBC 24.6 H (4.3-11.1) K/mcL Hgb 8.2 L (12.9-16.9) g/dL Hct 24.2 L (37.5-50.1) % Plt Count 403 H (140-400) K/mcL BMP 07/26/16 03:41 Sodium 131 L Potassium 4.4 Chloride 109 Carbon Dioxide 17 L BUN 18 Creatinine 0.74 Glucose 179 H Calcium 8.6 - ABG Interpretation ABG results: ABG ABG pH 7.42 pH Units (7.32-7.45) 07/21/16 16:15 ABG pCO2 36 mmHg (35-45) 07/21/16 16:15 ABG pO2 79 mmHg (85-104) L 07/21/16 16:15 ABG O2 Saturation 96 % (95-98) 07/21/16 16:15 PT/INR, D-dimer PT 16.4 Seconds (9.4-12.1) H 07/21/16 15:35 - VTE Documentation of Mechanical Device: Graduated compression elastic hosiery Consult Discharge Plan - Plan Referrals: Danny Watt MD [Primary Care Provider] -
--- NOTE | 2016-07-26 12:51 | Urology - Consult Note ---
Date of Encounter: 07/26/16 Time of Encounter: 12:49 - Assessment and Plan (1) Genital edema, male Current Visit: Yes Status: Chronic Assessment and plan: I was able to change the burr without issue. keep in place bc of recent illness. followup with Dr Carroll (primary Urologist) 2 weeks after discharge. Urology CN:HPI Consult date: 07/26/16 History of present illness: pt known to the service. seen by Dr Carroll last week and voiding trial planned. I was called to perform catheter change bc of severe penile edema. he has a stage IV decubitus ulcer. Past Med Surg Social Fam HX - Past Medical History Medical history: arthritis, CVA (05/2016), diabetes, hyperlipidemia, other ( Paget's disease, urinary retention) Psychiatric history: no psych history - Past Surgical History Surgical History: herniorrhaphy, orthopedic, other (bilateral knee replacement surgeries, back surgery) - Social History Smoking Status: Former smoker Smokeless Tobacco Status: No Alcohol use: occasionally Drug use: none - Family History Sister Hx Family Endocrine Disorder: Yes Brother Hx Family Cardiac Disorders: Yes Son Living Status: Hx Family Cardiac Disorders: Yes Mother Living Status: Hx Family Endocrine Disorder: Yes Medications and Allergies Clopidogrel [Plavix] 75 mg PO DAILY 05/29/16 [History] Docusate [Colace] 100 mg PO DAILY 05/29/16 [History] Gabapentin [Neurontin] 300 mg PO HS 05/29/16 [History] GlipiZIDE XL (24 HR) [Glucotrol XL] 10 mg PO BID 05/29/16 [History] Loratadine [Claritin] 10 mg PO DAILY 05/29/16 [History] Naproxen Sodium 550 mg PO BID 05/29/16 [History] Oxybutynin [Ditropan] 5 mg PO DAILY 05/29/16 [History] Amlodipine [Norvasc] 5 mg PO DAILY #30 tablet 06/02/16 [Rx] Atorvastatin [Lipitor] 40 mg PO HS #30 tablet 06/02/16 [Rx] Calcium Carbonate/Vitamin D3 [Calcium 500 + Vit D Caplet] 1 each PO BID [History] Ipratropium/Albuterol Neb [Duoneb] 3 ml IH Q4H 07/21/16 [History] Levofloxacin [Levaquin] 500 mg PO DAILY 07/21/16 [History] Tamsulosin [Flomax] 0.4 mg PO DAILY 07/21/16 [History] Allergies codeine Allergy (Verified 05/29/16 11:05) Itching morphine Allergy (Verified 05/29/16 11:05) Itching Review of Systems - Constitutional fatigue, weakness, no chills, no fever(s) - EENT Nose, mouth and throat: no dizziness - Cardiovascular no chest pain - Respiratory cough - Gastrointestinal no abdominal pain - Genitourinary no hematuria - Musculoskeletal back pain - Integumentary no erythema - Neurological confusion - Psychiatric no anxiety - Hematologic/Lymphatic no easy bleeding - Allergic/Immunologic no throat swelling Exam Initial Vital Signs Temp Pulse Resp BP Pulse Ox 99.1 F 125 16 75/49 90 L 07/21/16 15:11 07/21/16 15:11 07/21/16 15:11 07/21/16 15:11 07/21/16 15:11 - General physical appearance Present: no distress, chronically ill - Eyes Present: PERRL - ENT Present: normal nares - Neck Present: no masses - Respiratory Present: normal respiratory effort - Cardiovascular Cardiovascular exam IM: RRR - Abdomen Abdomen: Present: soft - Genitourinary Penis: Present: edema (edematous foreskin. able to retract with reduction of edema. ) Urology Results - Labs 07/26/16 03:41 07/26/16 03:41 Abnormal lab results WBC 24.6 K/mcL (4.3-11.1) H 07/26/16 03:41 RBC 2.94 M/mcL (4.19-5.50) L 07/26/16 03:41 Hgb 8.2 g/dL (12.9-16.9) L 07/26/16 03:41 Hct 24.2 % (37.5-50.1) L 07/26/16 03:41 MCV 82.3 fL (83.0-100.0) L 07/26/16 03:41 MCH 27.9 pg (28.0-33.3) L 07/26/16 03:41 RDW 14.6 % (11.5-14.5) H 07/26/16 03:41 Plt Count 403 K/mcL (140-400) H 07/26/16 03:41 MPV 9.2 fL (9.4-12.4) L 07/26/16 03:41 Band Neutrophils % 8.0 % (0-4) H 07/22/16 04:03 Neutrophils # 26.3 K/mcL (1.6-8.9) H 07/22/16 04:03 Platelet Estimate Slight increase (Normal) H 07/22/16 04:03 Immature Plt Fraction 1.0 % (1.1-6.1) L 07/26/16 03:41 Hypochromasia Present (Not Present) A 07/22/16 04:03 PT 16.4 Seconds (9.4-12.1) H 07/21/16 15:35 APTT 24.9 Seconds (26.0-36.0) L 07/21/16 15:35 ABG pO2 79 mmHg (85-104) L 07/21/16 16:15 Sodium 131 mEq/L (136-145) L 07/26/16 03:41 Carbon Dioxide 17 mEq/L (19-29) L 07/26/16 03:41 Glucose 179 mg/dL (70-99) H 07/26/16 03:41 POC Glucose 226 (58-89) H 07/25/16 20:55 Calculated Osmolality 278 (280-300) L 07/26/16 03:41 Phosphorus 1.5 mg/dL (2.3-4.7) L 07/25/16 05:02 Iron 21 mcg/dL (65-175) L 07/24/16 08:24 Transferrin 72 mg/dL (174-364) L 07/24/16 08:24 Troponin I 0.08 ng/mL (0-0.03) H* 07/22/16 04:03 Serum Total Protein 5.3 g/dL (6.0-8.3) L 07/25/16 05:02 Albumin 1.3 g/dL (3.5-5.0) L 07/25/16 05:02 Globulin 4.0 g/dL (2.4-3.5) H 07/25/16 05:02 Albumin/Globulin Ratio 0.3 (1.1-2.2) L 07/25/16 05:02 Vitamin B12 1580 pg/mL (213-816) H 07/24/16 08:24 Folate 6.0 ng/mL (7.0-31.4) L 07/24/16 08:24 Urine Clarity Turbid (Clear) A 07/21/16 15:34 Urine Protein 30 mg/dL (Neg-Trace) H 07/21/16 15:34 Urine Blood Trace (Negative) H 07/21/16 15:34 Urine Nitrite Positive (Negative) A 07/21/16 15:34 Ur Leukocyte Esterase Large (Negative) H 07/21/16 15:34 Urine Microscopic RBC 3-5 per hpf (0-3) H 07/21/16 15:34 Urine Microscopic WBC TNTC per hpf (0-3) H 07/21/16 15:34 Ur Squamous Epith Cells Moderate per lpf (None-Few) H 07/21/16 15:34 Urine Bacteria Moderate per hpf (None-Few) H 07/21/16 15:34 Urine Yeast Few per hpf (None Seen) H 07/21/16 15:34 Ur Culture Indicated? YES (NO) A 07/21/16 15:34 Vancomycin Trough 21.8 mcg/mL (10-20) H* 07/26/16 03:41 Enterococcus sp PCR DETECTED (Not Detect) A 07/21/16 15:35 Diabetes panel 07/26/16 Range/Units 03:41 Sodium 131 L (136-145) mEq/L Potassium 4.4 (3.5-4.5) mEq/L Chloride 109 (98-109) mEq/L Carbon Dioxide 17 L (19-29) mEq/L BUN 18 (8-26) mg/dL Creatinine 0.74 (0.72-1.25) mg/dL Glucose 179 H (70-99) mg/dL Calcium 8.6 (8.6-10.8) mg/dL Calcium panel 07/26/16 Range/Units 03:41 Calcium 8.6 (8.6-10.8) mg/dL Pituitary panel 07/26/16 Range/Units 03:41 Sodium 131 L (136-145) mEq/L Potassium 4.4 (3.5-4.5) mEq/L Chloride 109 (98-109) mEq/L Carbon Dioxide 17 L (19-29) mEq/L BUN 18 (8-26) mg/dL Creatinine 0.74 (0.72-1.25) mg/dL Glucose 179 H (70-99) mg/dL Calcium 8.6 (8.6-10.8) mg/dL Adrenal panel 07/26/16 Range/Units 03:41 Sodium 131 L (136-145) mEq/L Potassium 4.4 (3.5-4.5) mEq/L Chloride 109 (98-109) mEq/L Carbon Dioxide 17 L (19-29) mEq/L BUN 18 (8-26) mg/dL Creatinine 0.74 (0.72-1.25) mg/dL Glucose 179 H (70-99) mg/dL Calcium 8.6 (8.6-10.8) mg/dL All other labs normal. Procedures:Urology - Catheter Insertion (Urinary) Prophylactic antibiotics given: No Bladder Scan/Ultrasound used before catheterization: No Estimated amount of urin (mLs): 50 Preparation: Povidone-Iodine Type of catheter inserted: 2 way Catheter Marshallese Size: 16 Topical anesthesia used: No Results: successfully catheterized-immediate flow Urine Appearance: Clear Patient tolerated procedure: well Complications: none Additional comments: able to reduce foreskin by applying pressure to reduce edema. visualized glans and exchanged catheter. Consult Discharge Plan - Plan Referrals: Danny Watt MD [Primary Care Provider] -
[2016-07-26] MEDS ORDERED: DAPTOMYCIN IVPB SCH (14:00)
[2016-07-26] MEDS ORDERED: SODIUM CHLORIDE 0.9% IVPB SCH (14:00)
[2016-07-26] MEDS: Piperacillin/Tazobactam 3.375 GM in D5% in Water (Mini-Bag+) 100 ML IVPB SCH ×2 (14:36→23:45)
--- NOTE | 2016-07-26 15:35 | General Surgery Progress Note ---
<Geno De Anda Luis - Last Filed: 07/26/16 15:33> Date of Encounter: 07/26/16 Time of Encounter: 15:30 - Assessment and Plan (1) Decubitus ulcer of sacral region, unstageable Current Visit: Yes Status: Acute Plan for bedside/sharp debridement tomorrow 07/27/16 Continue BID dressing changes Turn every 2 hours (2) Sepsis Current Visit: Yes Status: Acute IV antibiotics- management per medicine service Decubitus ulcer is an unlikely source of sepsis Qualifiers: Sepsis type: sepsis due to unspecified organism Qualified Code(s): A41.9 - Sepsis, unspecified organism (3) Pneumonia Current Visit: Yes Status: Acute IV antibiotics Management per medicine service Qualifiers: Pneumonia type: due to unspecified organism Laterality: bilateral Lung location: lower lobe of lung Qualified Code(s): J18.9 - Pneumonia, unspecified organism (4) Urinary tract infection Current Visit: Yes Status: Acute IV antibiotics Management per medicine service Qualifiers: Urinary tract infection type: catheter-associated UTI Indwelling urinary catheter type: indwelling urethral catheter Encounter type: initial encounter Qualified Code(s): T83.511A - Infection and inflammatory reaction due to indwelling urethral catheter, initial encounter; N39.0 - Urinary tract infection , site not specified (5) Hyperlipidemia Current Visit: No Status: Chronic Qualifiers: Hyperlipidemia type: unspecified Qualified Code(s): E78.5 - Hyperlipidemia , unspecified (6) Diabetes Current Visit: No Status: Chronic Management per medicine service Qualifiers: Diabetes mellitus type: type 2 Diabetes mellitus complication status: with circulatory complication Diabetes mellitus complication detail: with other circulatory complications Diabetes mellitus mcfp insulin use: without yarder operator use Qualified Code(s): E11.59 - Type 2 diabetes mellitus with other circulatory complications (7) Hypertension Current Visit: No Status: Chronic Management per medicine service Qualifiers: Hypertension type: essential hypertension Qualified Code(s): I10 - Essential (primary) hypertension Subjective Patient reports: no new complaints, fever (Tmax 101.3), other (Patient is pleasantly confused) Objective Vital Signs - Last 8 Hours Temp Pulse Resp BP Pulse Ox 07/26/16 14:49 109 07/26/16 12:09 95 07/26/16 11:33 99.2 F 98 17 168/70 97 07/26/16 09:54 16 128/63 96 07/26/16 09:00 89 Intake and Output 07/25/16 07/26/16 07/26/16 23:59 07:59 15:59 Intake Total 1340 / 1340 1200 / 1200 320 / 320 Output Total 550 / 550 350 / 350 Balance 790 / 790 850 / 850 320 / 320 Intake: IV Fluids 1100 / 1100 1000 / 1000 200 / 200 0.9 % Sodium Chloride 1, 1000 / 1000 1000 / 1000 000 ML @ 125 mls/hr IVC . Q8H JOS[facility] Rx#:[id number] Merrem 1,000 MG In 0.9 % 100 / 100 200 / 200 Sodium Chloride (Mini-Bag +) 100 ML @ 200 mls/hr IVPB Q8H JOSIE Rx#: [id number] Oral 240 / 240 200 / 200 120 / 120 Output: Catheter 550 / 550 350 / 350 Other: Meal Dinner Lunch Percent of Meal Consumed 5% 25% Weight 71.8 kg Blood Glucose* 226 199 160 Patient Weight 07/26/16 23:59 Weight 71.8 kg - General physical appearance no distress, chronically ill - Eyes normal ocular movement - ENT dry mucosa, atraumatic, normocephalic - Neck Neck exam: trachea midline - Respiratory normal respiratory effort - Cardiovascular Cardiovascular exam: Present: tachycardia, irregular rhythm - Abdomen Abdomen: Present: bowel sounds present, soft, non tender - Integumentary other (Unstageable large sacral decubitus ulcer with 95% fibrous/necrosis tissue ) - Musculoskeletal other (severe deconditioning) - Psychiatric oriented to person - Labs 07/26/16 03:41 07/26/16 03:41 Diabetes panel 07/26/16 Range/Units 03:41 Sodium 131 L (136-145) mEq/L Potassium 4.4 (3.5-4.5) mEq/L Chloride 109 (98-109) mEq/L Carbon Dioxide 17 L (19-29) mEq/L BUN 18 (8-26) mg/dL Creatinine 0.74 (0.72-1.25) mg/dL Glucose 179 H (70-99) mg/dL Calcium 8.6 (8.6-10.8) mg/dL Calcium panel 07/26/16 Range/Units 03:41 Calcium 8.6 (8.6-10.8) mg/dL Pituitary panel 07/26/16 Range/Units 03:41 Sodium 131 L (136-145) mEq/L Potassium 4.4 (3.5-4.5) mEq/L Chloride 109 (98-109) mEq/L Carbon Dioxide 17 L (19-29) mEq/L BUN 18 (8-26) mg/dL Creatinine 0.74 (0.72-1.25) mg/dL Glucose 179 H (70-99) mg/dL Calcium 8.6 (8.6-10.8) mg/dL Adrenal panel 07/26/16 Range/Units 03:41 Sodium 131 L (136-145) mEq/L Potassium 4.4 (3.5-4.5) mEq/L Chloride 109 (98-109) mEq/L Carbon Dioxide 17 L (19-29) mEq/L BUN 18 (8-26) mg/dL Creatinine 0.74 (0.72-1.25) mg/dL Glucose 179 H (70-99) mg/dL Calcium 8.6 (8.6-10.8) mg/dL - VTE Documentation of Mechanical Device: Graduated compression elastic hosiery Consult Discharge Plan - Plan Referrals: Danny Watt MD [Primary Care Provider] - - Attending Attestation I examined this patient and my medical decision-making was reviewed with the VASCULAR RADIOLOGIST/PA/Advanced Practice Nurse/Resident Physician. I agree with the documented findings, disposition and treatment plan as described except to the extent set forth below. <Lc Reed T - Last Filed: 07/28/16 06:58> Objective Vital Signs - Last 8 Hours Temp Pulse Resp BP Pulse Ox 07/28/16 04:00 98.6 F 87 16 149/61 100 07/28/16 03:59 20 100 07/28/16 00:43 98.0 F 99 20 132/47 95 07/27/16 23:30 103 Intake and Output 07/27/16 07/27/16 07/28/16 15:59 23:59 07:59 Intake Total 1100 / 1100 1180 / 1180 150 / 150 Output Total 975 / 975 1100 / 1100 Balance 1100 / 1100 205 / 205 -950 / -950 Intake: IV Fluids 1100 / 1100 1050 / 1050 100 / 100 0.9 % Sodium Chloride 1, 1000 / 1000 950 / 950 000 ML @ 125 mls/hr IVC . Q8H [facility]OS[facility] Rx#:[id number] Zosyn 3.375 GM In 100 / 100 100 / 100 100 / 100 Dextrose 5% (Minibag+) 100 ML 100 ML @ 25 mls/hr IVPB Q8H JOSIE Rx#: [id number] Oral 130 / 130 50 / 50 Output: Catheter 975 / 975 1100 / 1100 Other: Meal Dinner Percent of Meal Consumed 10% Blood Glucose* 121 178 110 - Labs 07/28/16 04:40 07/28/16 04:40 Diabetes panel 07/28/16 Range/Units 04:40 Sodium 134 L (136-145) mEq/L Potassium 3.9 (3.5-4.5) mEq/L Chloride 112 H (98-109) mEq/L Carbon Dioxide 20 (19-29) mEq/L BUN 13 (8-26) mg/dL Creatinine 0.60 L (0.72-1.25) mg/dL Glucose 102 H (70-99) mg/dL Calcium 8.2 L (8.6-10.8) mg/dL Calcium panel 07/28/16 Range/Units 04:40 Calcium 8.2 L (8.6-10.8) mg/dL Pituitary panel 07/28/16 Range/Units 04:40 Sodium 134 L (136-145) mEq/L Potassium 3.9 (3.5-4.5) mEq/L Chloride 112 H (98-109) mEq/L Carbon Dioxide 20 (19-29) mEq/L BUN 13 (8-26) mg/dL Creatinine 0.60 L (0.72-1.25) mg/dL Glucose 102 H (70-99) mg/dL Calcium 8.2 L (8.6-10.8) mg/dL Adrenal panel 07/28/16 Range/Units 04:40 Sodium 134 L (136-145) mEq/L Potassium 3.9 (3.5-4.5) mEq/L Chloride 112 H (98-109) mEq/L Carbon Dioxide 20 (19-29) mEq/L BUN 13 (8-26) mg/dL Creatinine 0.60 L (0.72-1.25) mg/dL Glucose 102 H (70-99) mg/dL Calcium 8.2 L (8.6-10.8) mg/dL - Attending Attestation Lc Reed MD FACS
[2016-07-26] MEDS ORDERED: *HR* Metoprolol 5 MG/5 ML VIAL IVP ONE (15:57)
[2016-07-26 16:29] LABS: Magnesium 1.2 mg/dL (1.6-2.6); Phosphorous 1.5 mg/dL (2.3-4.7)
[2016-07-26] MEDS: Levalbuterol Neb 0.63 MG/3 ML IH SCH ×2 (16:49→21:47)
[2016-07-26] MEDS ORDERED: Magnesium Sulfate 2 GM in D5% in Water 100 ML IVPB ONE (16:52)
[2016-07-26] MEDS ORDERED: Sodium Phosphate 15 MMOL in D5% in Water 100 ML IVPB ONE (16:53)
[2016-07-26] MEDS ORDERED: Vancomycin 750 MG in D5% in Water 250 ML IVPB SCH (17:00)
[2016-07-26] MEDS: Insulin DETEMIR 100 UNIT/ML X5UNITS SQ SCH (21:34)
[2016-07-26] MEDS: Gabapentin 300 MG CAPSULE PO SCH (21:35)
[2016-07-26] MEDS: Ascorbic Acid 500 MG TABLET PO SCH (21:35)
[2016-07-27] MEDS: 0.9 % Sodium Chloride 1,000 ML IVC SCH ×2 (00:18→09:09)
[2016-07-27] MEDS: Levalbuterol Neb 0.63 MG/3 ML IH SCH ×4 (04:24→22:17)
[2016-07-27 05:19] LABS: Hematocrit 23.3 % (37.5-50.1); Hemoglobin 7.9 g/dL (12.9-16.9); Mean Corpuscular HGB Conc 33.9 g/dL (31.6-35.5); Mean Corpuscular Hemoglobin 28.4 pg (28.0-33.3); Mean Corpuscular Volume 83.8 fL (83.0-100.0); Mean Platelet Volume 8.7 fL (9.4-12.4); Platelet Count 326 K/mcL (140-400); Red Blood Count 2.78 M/mcL (4.19-5.50); Red Cell Distribution Width 14.8 % (11.5-14.5)
[2016-07-27 05:31] LABS: Alanine Aminotransferase 17 Units/L (0-55); Albumin/Globulin Ratio 0.3 (1.1-2.2); Alkaline Phosphatase 67 Units/L (38-126); Aspartate Amino Transferase 19 Units/L (5-34); BUN/Creatinine Ratio 26 (6-26); Bilirubin,Total 0.6 mg/dL (0.2-1.2); Blood Urea Nitrogen 17 mg/dL (8-26); Calcium 8.4 mg/dL (8.6-10.8); Carbon Dioxide 19 mEq/L (19-29); Chloride 112 mEq/L (98-109); Globulin 3.9 g/dL (2.4-3.5); Glucose 129 mg/dL (70-99); Osmolality,Calculated 281 (280-300); Potassium 3.9 mEq/L (3.5-4.5); Sodium 134 mEq/L (136-145); Total Protein 5.1 g/dL (6.0-8.3); eGFR For African Americans > 60 (> 60); eGFR For Non-African Americans > 60 (> 60)
[2016-07-27 05:33] LABS: Albumin 1.2 g/dL (3.5-5.0)
[2016-07-27] MEDS: Piperacillin/Tazobactam 3.375 GM in D5% in Water (Mini-Bag+) 100 ML IVPB SCH ×3 (06:00→22:07)
[2016-07-27] MEDS: *HR* Heparin 5,000 UNIT/ML VIAL SQ SCH ×2 (06:01→17:22)
[2016-07-27] MEDS ORDERED: Levofloxacin 750 MG/150 ML 750 MG/150 ML BAG IVPB SCH (09:00)
[2016-07-27] MEDS: Insulin LISPRO 300 UNITS/3 ML VIAL SQ SCH ×4 (09:08→20:35)
[2016-07-27] MEDS ORDERED: Lidocaine -MPF 1% 5 ML AMPUL INFILT ONE (09:31)
[2016-07-27] MEDS: Ascorbic Acid 500 MG TABLET PO SCH ×2 (09:45→20:27)
[2016-07-27] MEDS: Lactobacillus 1 EACH CAP.SPRINK PO SCH ×2 (09:45→20:27)
[2016-07-27] MEDS: Loratadine 10 MG TABLET PO SCH (09:45)
[2016-07-27] MEDS: Folic Acid 1 MG TABLET PO SCH (09:46)
[2016-07-27] MEDS: Multivit/Ca/Min/Fe/FA 1 TAB TABLET PO SCH (09:46)
--- NOTE | 2016-07-27 14:52 | Internal Med Progress Note ---
Date of Encounter: 07/27/16 Time of Encounter: 10:00 - Assessment and plan (1) Bacteremia due to Enterococcus Current Visit: Yes Status: Acute Assessment and plan: On IV antibiotics. Will continue. WBC count is improving. Given that the source of this bacteremia is likely from his decubitus ulcer, with history with intravenous antibiotics for at least 2 weeks. (2) Decubitus ulcer of sacral region, unstageable Current Visit: Yes Status: Acute Assessment and plan: Plan for debridement today. Surgery managing this. (3) DVT prophylaxis Current Visit: Yes Status: Acute Assessment and plan: On subcutaneous heparin (4) Healthcare-associated pneumonia Current Visit: Yes Status: Acute Assessment and plan: On broad-spectrum antibiotics. Blood cultures have been negative. WBC count is improving. If WBC count improves tomorrow, will de-escalate antibiotics. (5) Hypertension Current Visit: Yes Status: Chronic Assessment and plan: Slightly elevated today. Will monitor blood pressure and adjust antihypertensive regimen as needed. Qualifiers: Hypertension type: essential hypertension Qualified Code(s): I10 - Essential (primary) hypertension (6) Hyponatremia Current Visit: Yes Status: Acute Assessment and plan: Improving. Sodium 134 today. (7) New onset a-fib Current Visit: Yes Status: Acute Assessment and plan: Not a good candidate for anticoagulation due to anemia. On Plavix (8) Normocytic anemia Current Visit: Yes Status: Acute Assessment and plan: Hemoglobin 7.9 today. Will monitor blood counts. Normal signs of bleeding (9) Sepsis Current Visit: Yes Status: Acute Assessment and plan: From pneumonia/UTI. Improving leukocytosis. Qualifiers: Sepsis type: sepsis due to unspecified organism Qualified Code(s): A41.9 - Sepsis, unspecified organism (10) Urinary tract infection Current Visit: Yes Status: Acute Assessment and plan: With Escherichia coli. On Zosyn. Qualifiers: Urinary tract infection type: catheter-associated UTI Indwelling urinary catheter type: indwelling urethral catheter Encounter type: initial encounter Qualified Code(s): T83.511A - Infection and inflammatory reaction due to indwelling urethral catheter, initial encounter; N39.0 - Urinary tract infection , site not specified - Subjective Interval history: Patient is comfortable at this time. Denies any complaints. He is awaiting debridement for his decubitus ulcer with this plan for later today. No chest pain. No shortness of breath. No nausea or vomiting. - Constitutional Vitals: Temp Pulse Resp BP Pulse Ox 98.2 F 105 16 158/75 97 07/27/16 11:10 07/27/16 12:15 07/27/16 11:10 07/27/16 11:10 07/27/16 12:15 General appearance: Present: mild distress, A&O X 3, pleasant, no acute distress , answers questions appropriately - Neck Neck exam general surgery: Present: supple, trachea midline. Absent: lymphadenopathy - Respiratory Respiratory exam: Present: CTAB. Absent: accessory muscle use, rales, rhonchi, wheezes - Cardiovascular Cardiovascular exam: Present: RRR, +S1, +S2. Absent: diastolic murmur, gallop, rubs, systolic murmur - GI/Abdominal GI/Abdominal exam: Present: normal bowel sounds, soft, no peritoneal signs. Absent: distended, tenderness - Extremities Exam Extremities exam: Present: warm, radial pulses palpable and symetrical. Absent : calf tenderness, cyanotic, pedal edema - Skin Additional comments: Unstageable sacral decubitus ulcer Internal Medicine: Result - Labs CBC & Chem 7: 07/27/16 05:03 07/27/16 05:03 Labs: Short CBC 07/27/16 Range/Units 05:03 WBC 20.1 H (4.3-11.1) K/mcL Hgb 7.9 L (12.9-16.9) g/dL Hct 23.3 L (37.5-50.1) % Plt Count 326 (140-400) K/mcL BMP 07/27/16 05:03 Sodium 134 L Potassium 3.9 Chloride 112 H Carbon Dioxide 19 BUN 17 Creatinine 0.66 L Glucose 129 H Calcium 8.4 L Liver Function 07/27/16 Range/Units 05:03 Total Bilirubin 0.6 (0.2-1.2) mg/dL AST 19 (5-34) Units/L ALT 17 (0-55) Units/L Alkaline Phosphatase 67 (38-126) Units/L Albumin 1.2 L (3.5-5.0) g/dL - ABG Interpretation ABG results: ABG ABG pH 7.42 pH Units (7.32-7.45) 07/21/16 16:15 ABG pCO2 36 mmHg (35-45) 07/21/16 16:15 ABG pO2 79 mmHg (85-104) L 07/21/16 16:15 ABG O2 Saturation 96 % (95-98) 07/21/16 16:15 PT/INR, D-dimer PT 16.4 Seconds (9.4-12.1) H 07/21/16 15:35 - Impressions Impressions Chest X-Ray 07/26/16 11:36 IMPRESSION: Increased interstitial changes seen within the lungs, particularly at the left lung base. This may represent developing interstitial pulmonary edema and left basilar atelectasis, or possible multifocal pneumonitis. D/ / Ross Clifton MD / Ross Clifton MD Interpreting Provider: Ross Clifton MD - VTE Documentation of Mechanical Device: Graduated compression elastic hosiery Consult Discharge Plan - Plan Referrals: Danny Watt MD [Primary Care Provider] - - Attending Attestation This document has been at least partially created by [employer] recognition technology by Dr. Coreas. Errors in grammar, wording or other phrases may exist. If errors are found after the documentation is signed, they will be addressed individually in the addendum section of this document when appropriate. Medical Decision Making - MDM Narrative Medical decision making narrative: High risk for complications - Lab Data Lab results reviewed: Yes I reviewed the patient's lab results. Result diagrams: 07/27/16 05:03 07/27/16 05:03 Lab Results 07/21/16 07/21/16 07/21/16 Range/Units 20:55 21:08 21:08 WBC (4.3-11.1) K/mcL RBC (4.19-5.50) M/mcL Hgb (12.9-16.9) g/dL Hct (37.5-50.1) % MCV (83.0-100.0) fL MCH (28.0-33.3) pg MCHC (31.6-35.5) g/dL RDW (11.5-14.5) % Plt Count (140-400) K/mcL MPV (9.4-12.4) fL Seg Neutrophils % % Band Neutrophils % (0-4) % Lymphocytes % % Monocytes % % Neutrophils # (1.6-8.9) K/mcL Lymphocytes # (0.6-4.6) K/mcL Monocytes # (0.0-1.3) K/mcL Platelet Estimate (Normal) Immature Plt Fraction (1.1-6.1) % Hypochromasia (Not Present) Sodium (136-145) mEq/L Potassium (3.5-4.5) mEq/L Chloride (98-109) mEq/L Carbon Dioxide (19-29) mEq/L BUN (8-26) mg/dL Creatinine (0.72-1.25) mg/dL Est GFR ( Amer) (> 60) Est GFR (Non-Af Amer) (> 60) BUN/Creatinine Ratio (6-26) Glucose (70-99) mg/dL POC Glucose 237 H (58-89) Calculated Osmolality (280-300) Lactic Acid (0.5-2.2) mmol/L Calcium (8.6-10.8) mg/dL Phosphorus 1.7 L (2.3-4.7) mg/dL Magnesium 2.1 (1.6-2.6) mg/dL Iron (65-175) mcg/dL % Saturation (20-55) % Transferrin (174-364) mg/dL Total Bilirubin (0.2-1.2) mg/dL AST (5-34) Units/L ALT (0-55) Units/L Alkaline Phosphatase (38-126) Units/L Troponin I 0.09 H* (0-0.03) ng/mL Serum Total Protein (6.0-8.3) g/dL Albumin (3.5-5.0) g/dL Globulin (2.4-3.5) g/dL Albumin/Globulin Ratio (1.1-2.2) Vitamin B12 (213-816) pg/mL Folate (7.0-31.4) ng/mL TSH (0.350-4.840) mcIU/mL Vancomycin Trough (10-20) mcg/mL Blood Type Antibody Screen 07/22/16 07/22/16 07/22/16 Range/Units 04:03 04:03 04:03 WBC 27.4 H (4.3-11.1) K/mcL RBC 3.12 L (4.19-5.50) M/mcL Hgb 8.7 L (12.9-16.9) g/dL Hct 26.6 L (37.5-50.1) % MCV 85.3 (83.0-100.0) fL MCH 27.9 L (28.0-33.3) pg MCHC 32.7 (31.6-35.5) g/dL RDW 14.2 (11.5-14.5) % Plt Count 476 H (140-400) K/mcL MPV 9.8 (9.4-12.4) fL Seg Neutrophils % 88.0 % Band Neutrophils % 8.0 H (0-4) % Lymphocytes % 2.0 % Monocytes % 2.0 % Neutrophils # 26.3 H (1.6-8.9) K/mcL Lymphocytes # 0.6 (0.6-4.6) K/mcL Monocytes # 0.6 (0.0-1.3) K/mcL Platelet Estimate Slight increase H (Normal) Immature Plt Fraction (1.1-6.1) % Hypochromasia Present A (Not Present) Sodium 131 L (136-145) mEq/L Potassium 5.0 H (3.5-4.5) mEq/L Chloride 109 (98-109) mEq/L Carbon Dioxide 17 L (19-29) mEq/L BUN 35 H (8-26) mg/dL Creatinine 0.98 (0.72-1.25) mg/dL Est GFR ( Amer) > 60 (> 60) Est GFR (Non-Af Amer) > 60 (> 60) BUN/Creatinine Ratio 36 H (6-26) Glucose 182 H (70-99) mg/dL POC Glucose (58-89) Calculated Osmolality 285 (280-300) Lactic Acid (0.5-2.2) mmol/L Calcium 8.9 (8.6-10.8) mg/dL Phosphorus (2.3-4.7) mg/dL Magnesium (1.6-2.6) mg/dL Iron (65-175) mcg/dL % Saturation (20-55) % Transferrin (174-364) mg/dL Total Bilirubin (0.2-1.2) mg/dL AST (5-34) Units/L ALT (0-55) Units/L Alkaline Phosphatase (38-126) Units/L Troponin I 0.08 H* (0-0.03) ng/mL Serum Total Protein (6.0-8.3) g/dL Albumin (3.5-5.0) g/dL Globulin (2.4-3.5) g/dL Albumin/Globulin Ratio (1.1-2.2) Vitamin B12 (213-816) pg/mL Folate (7.0-31.4) ng/mL TSH 0.633 (0.350-4.840) mcIU/mL Vancomycin Trough (10-20) mcg/mL Blood Type Antibody Screen 07/22/16 07/22/16 07/22/16 Range/Units 07:50 11:23 16:33 WBC (4.3-11.1) K/mcL RBC (4.19-5.50) M/mcL Hgb (12.9-16.9) g/dL Hct (37.5-50.1) % MCV (83.0-100.0) fL MCH (28.0-33.3) pg MCHC (31.6-35.5) g/dL RDW (11.5-14.5) % Plt Count (140-400) K/mcL MPV (9.4-12.4) fL Seg Neutrophils % % Band Neutrophils % (0-4) % Lymphocytes % % Monocytes % % Neutrophils # (1.6-8.9) K/mcL Lymphocytes # (0.6-4.6) K/mcL Monocytes # (0.0-1.3) K/mcL Platelet Estimate (Normal) Immature Plt Fraction (1.1-6.1) % Hypochromasia (Not Present) Sodium (136-145) mEq/L Potassium (3.5-4.5) mEq/L Chloride (98-109) mEq/L Carbon Dioxide (19-29) mEq/L BUN (8-26) mg/dL Creatinine (0.72-1.25) mg/dL Est GFR ( Amer) (> 60) Est GFR (Non-Af Amer) (> 60) BUN/Creatinine Ratio (6-26) Glucose (70-99) mg/dL POC Glucose 206 H 143 H 157 H (58-89) Calculated Osmolality (280-300) Lactic Acid (0.5-2.2) mmol/L Calcium (8.6-10.8) mg/dL Phosphorus (2.3-4.7) mg/dL Magnesium (1.6-2.6) mg/dL Iron (65-175) mcg/dL % Saturation (20-55) % Transferrin (174-364) mg/dL Total Bilirubin (0.2-1.2) mg/dL AST (5-34) Units/L ALT (0-55) Units/L Alkaline Phosphatase (38-126) Units/L Troponin I (0-0.03) ng/mL Serum Total Protein (6.0-8.3) g/dL Albumin (3.5-5.0) g/dL Globulin (2.4-3.5) g/dL Albumin/Globulin Ratio (1.1-2.2) Vitamin B12 (213-816) pg/mL Folate (7.0-31.4) ng/mL TSH (0.350-4.840) mcIU/mL Vancomycin Trough (10-20) mcg/mL Blood Type Antibody Screen 07/22/16 07/23/16 07/23/16 Range/Units 20:39 04:16 04:16 WBC 24.8 H (4.3-11.1) K/mcL RBC 2.82 L (4.19-5.50) M/mcL Hgb 8.1 L (12.9-16.9) g/dL Hct 23.9 L (37.5-50.1) % MCV 84.8 (83.0-100.0) fL MCH 28.7 (28.0-33.3) pg MCHC 33.9 (31.6-35.5) g/dL RDW 14.3 (11.5-14.5) % Plt Count 436 H (140-400) K/mcL MPV 9.5 (9.4-12.4) fL Seg Neutrophils % % Band Neutrophils % (0-4) % Lymphocytes % % Monocytes % % Neutrophils # (1.6-8.9) K/mcL Lymphocytes # (0.6-4.6) K/mcL Monocytes # (0.0-1.3) K/mcL Platelet Estimate (Normal) Immature Plt Fraction (1.1-6.1) % Hypochromasia (Not Present) Sodium (136-145) mEq/L Potassium (3.5-4.5) mEq/L Chloride (98-109) mEq/L Carbon Dioxide (19-29) mEq/L BUN (8-26) mg/dL Creatinine (0.72-1.25) mg/dL Est GFR ( Amer) (> 60) Est GFR (Non-Af Amer) (> 60) BUN/Creatinine Ratio (6-26) Glucose (70-99) mg/dL POC Glucose 212 H (58-89) Calculated Osmolality (280-300) Lactic Acid (0.5-2.2) mmol/L Calcium (8.6-10.8) mg/dL Phosphorus (2.3-4.7) mg/dL Magnesium (1.6-2.6) mg/dL Iron (65-175) mcg/dL % Saturation (20-55) % Transferrin (174-364) mg/dL Total Bilirubin (0.2-1.2) mg/dL AST (5-34) Units/L ALT (0-55) Units/L Alkaline Phosphatase (38-126) Units/L Troponin I (0-0.03) ng/mL Serum Total Protein (6.0-8.3) g/dL Albumin (3.5-5.0) g/dL Globulin (2.4-3.5) g/dL Albumin/Globulin Ratio (1.1-2.2) Vitamin B12 (213-816) pg/mL Folate (7.0-31.4) ng/mL TSH (0.350-4.840) mcIU/mL Vancomycin Trough 14.3 (10-20) mcg/mL Blood Type Antibody Screen 07/23/16 07/23/16 07/23/16 Range/Units 04:16 07:58 12:06 WBC (4.3-11.1) K/mcL RBC (4.19-5.50) M/mcL Hgb (12.9-16.9) g/dL Hct (37.5-50.1) % MCV (83.0-100.0) fL MCH (28.0-33.3) pg MCHC (31.6-35.5) g/dL RDW (11.5-14.5) % Plt Count (140-400) K/mcL MPV (9.4-12.4) fL Seg Neutrophils % % Band Neutrophils % (0-4) % Lymphocytes % % Monocytes % % Neutrophils # (1.6-8.9) K/mcL Lymphocytes # (0.6-4.6) K/mcL Monocytes # (0.0-1.3) K/mcL Platelet Estimate (Normal) Immature Plt Fraction (1.1-6.1) % Hypochromasia (Not Present) Sodium 130 L (136-145) mEq/L Potassium 4.6 H (3.5-4.5) mEq/L Chloride 109 (98-109) mEq/L Carbon Dioxide 18 L (19-29) mEq/L BUN 28 H (8-26) mg/dL Creatinine 0.88 (0.72-1.25) mg/dL Est GFR ( Amer) > 60 (> 60) Est GFR (Non-Af Amer) > 60 (> 60) BUN/Creatinine Ratio 32 H (6-26) Glucose 194 H (70-99) mg/dL POC Glucose 231 H 172 H (58-89) Calculated Osmolality 281 (280-300) Lactic Acid (0.5-2.2) mmol/L Calcium 9.1 (8.6-10.8) mg/dL Phosphorus (2.3-4.7) mg/dL Magnesium 1.9 (1.6-2.6) mg/dL Iron (65-175) mcg/dL % Saturation (20-55) % Transferrin (174-364) mg/dL Total Bilirubin (0.2-1.2) mg/dL AST (5-34) Units/L ALT (0-55) Units/L Alkaline Phosphatase (38-126) Units/L Troponin I (0-0.03) ng/mL Serum Total Protein (6.0-8.3) g/dL Albumin (3.5-5.0) g/dL Globulin (2.4-3.5) g/dL Albumin/Globulin Ratio (1.1-2.2) Vitamin B12 (213-816) pg/mL Folate (7.0-31.4) ng/mL TSH (0.350-4.840) mcIU/mL Vancomycin Trough (10-20) mcg/mL Blood Type Antibody Screen 07/23/16 07/23/16 07/24/16 Range/Units 16:09 20:43 02:28 WBC 28.5 H (4.3-11.1) K/mcL RBC 2.86 L (4.19-5.50) M/mcL Hgb 8.0 L (12.9-16.9) g/dL Hct 24.0 L (37.5-50.1) % MCV 83.9 (83.0-100.0) fL MCH 28.0 (28.0-33.3) pg MCHC 33.3 (31.6-35.5) g/dL RDW 14.4 (11.5-14.5) % Plt Count 444 H (140-400) K/mcL MPV 9.3 L (9.4-12.4) fL Seg Neutrophils % % Band Neutrophils % (0-4) % Lymphocytes % % Monocytes % % Neutrophils # (1.6-8.9) K/mcL Lymphocytes # (0.6-4.6) K/mcL Monocytes # (0.0-1.3) K/mcL Platelet Estimate (Normal) Immature Plt Fraction (1.1-6.1) % Hypochromasia (Not Present) Sodium (136-145) mEq/L Potassium (3.5-4.5) mEq/L Chloride (98-109) mEq/L Carbon Dioxide (19-29) mEq/L BUN (8-26) mg/dL Creatinine (0.72-1.25) mg/dL Est GFR ( Amer) (> 60) Est GFR (Non-Af Amer) (> 60) BUN/Creatinine Ratio (6-26) Glucose (70-99) mg/dL POC Glucose 103 H 214 H (58-89) Calculated Osmolality (280-300) Lactic Acid (0.5-2.2) mmol/L Calcium (8.6-10.8) mg/dL Phosphorus (2.3-4.7) mg/dL Magnesium (1.6-2.6) mg/dL Iron (65-175) mcg/dL % Saturation (20-55) % Transferrin (174-364) mg/dL Total Bilirubin (0.2-1.2) mg/dL AST (5-34) Units/L ALT (0-55) Units/L Alkaline Phosphatase (38-126) Units/L Troponin I (0-0.03) ng/mL Serum Total Protein (6.0-8.3) g/dL Albumin (3.5-5.0) g/dL Globulin (2.4-3.5) g/dL Albumin/Globulin Ratio (1.1-2.2) Vitamin B12 (213-816) pg/mL Folate (7.0-31.4) ng/mL TSH (0.350-4.840) mcIU/mL Vancomycin Trough (10-20) mcg/mL Blood Type Antibody Screen 07/24/16 07/24/16 07/24/16 Range/Units 02:28 02:28 07:14 WBC (4.3-11.1) K/mcL RBC (4.19-5.50) M/mcL Hgb (12.9-16.9) g/dL Hct (37.5-50.1) % MCV (83.0-100.0) fL MCH (28.0-33.3) pg MCHC (31.6-35.5) g/dL RDW (11.5-14.5) % Plt Count (140-400) K/mcL MPV (9.4-12.4) fL Seg Neutrophils % % Band Neutrophils % (0-4) % Lymphocytes % % Monocytes % % Neutrophils # (1.6-8.9) K/mcL Lymphocytes # (0.6-4.6) K/mcL Monocytes # (0.0-1.3) K/mcL Platelet Estimate (Normal) Immature Plt Fraction (1.1-6.1) % Hypochromasia (Not Present) Sodium 132 L (136-145) mEq/L Potassium 4.8 H (3.5-4.5) mEq/L Chloride 106 (98-109) mEq/L Carbon Dioxide 20 (19-29) mEq/L BUN 23 (8-26) mg/dL Creatinine 0.93 (0.72-1.25) mg/dL Est GFR ( Amer) > 60 (> 60) Est GFR (Non-Af Amer) > 60 (> 60) BUN/Creatinine Ratio 25 (6-26) Glucose 207 H (70-99) mg/dL POC Glucose 221 H (58-89) Calculated Osmolality 284 (280-300) Lactic Acid 1.5 (0.5-2.2) mmol/L Calcium 9.1 (8.6-10.8) mg/dL Phosphorus (2.3-4.7) mg/dL Magnesium (1.6-2.6) mg/dL Iron (65-175) mcg/dL % Saturation (20-55) % Transferrin (174-364) mg/dL Total Bilirubin (0.2-1.2) mg/dL AST (5-34) Units/L ALT (0-55) Units/L Alkaline Phosphatase (38-126) Units/L Troponin I (0-0.03) ng/mL Serum Total Protein (6.0-8.3) g/dL Albumin (3.5-5.0) g/dL Globulin (2.4-3.5) g/dL Albumin/Globulin Ratio (1.1-2.2) Vitamin B12 (213-816) pg/mL Folate (7.0-31.4) ng/mL TSH (0.350-4.840) mcIU/mL Vancomycin Trough (10-20) mcg/mL Blood Type Antibody Screen 07/24/16 07/24/16 07/24/16 Range/Units 08:24 08:24 08:24 WBC (4.3-11.1) K/mcL RBC (4.19-5.50) M/mcL Hgb (12.9-16.9) g/dL Hct (37.5-50.1) % MCV (83.0-100.0) fL MCH (28.0-33.3) pg MCHC (31.6-35.5) g/dL RDW (11.5-14.5) % Plt Count (140-400) K/mcL MPV (9.4-12.4) fL Seg Neutrophils % % Band Neutrophils % (0-4) % Lymphocytes % % Monocytes % % Neutrophils # (1.6-8.9) K/mcL Lymphocytes # (0.6-4.6) K/mcL Monocytes # (0.0-1.3) K/mcL Platelet Estimate (Normal) Immature Plt Fraction (1.1-6.1) % Hypochromasia (Not Present) Sodium (136-145) mEq/L Potassium (3.5-4.5) mEq/L Chloride (98-109) mEq/L Carbon Dioxide (19-29) mEq/L BUN (8-26) mg/dL Creatinine (0.72-1.25) mg/dL Est GFR ( Amer) (> 60) Est GFR (Non-Af Amer) (> 60) BUN/Creatinine Ratio (6-26) Glucose (70-99) mg/dL POC Glucose (58-89) Calculated Osmolality (280-300) Lactic Acid (0.5-2.2) mmol/L Calcium (8.6-10.8) mg/dL Phosphorus (2.3-4.7) mg/dL Magnesium (1.6-2.6) mg/dL Iron 21 L (65-175) mcg/dL % Saturation 21 (20-55) % Transferrin 72 L (174-364) mg/dL Total Bilirubin (0.2-1.2) mg/dL AST (5-34) Units/L ALT (0-55) Units/L Alkaline Phosphatase (38-126) Units/L Troponin I (0-0.03) ng/mL Serum Total Protein (6.0-8.3) g/dL Albumin (3.5-5.0) g/dL Globulin (2.4-3.5) g/dL Albumin/Globulin Ratio (1.1-2.2) Vitamin B12 1580 H (213-816) pg/mL Folate 6.0 L (7.0-31.4) ng/mL TSH (0.350-4.840) mcIU/mL Vancomycin Trough (10-20) mcg/mL Blood Type O POSITIVE Antibody Screen NEGATIVE 07/24/16 07/24/16 07/24/16 Range/Units 11:23 16:40 20:33 WBC (4.3-11.1) K/mcL RBC (4.19-5.50) M/mcL Hgb (12.9-16.9) g/dL Hct (37.5-50.1) % MCV (83.0-100.0) fL MCH (28.0-33.3) pg MCHC (31.6-35.5) g/dL RDW (11.5-14.5) % Plt Count (140-400) K/mcL MPV (9.4-12.4) fL Seg Neutrophils % % Band Neutrophils % (0-4) % Lymphocytes % % Monocytes % % Neutrophils # (1.6-8.9) K/mcL Lymphocytes # (0.6-4.6) K/mcL Monocytes # (0.0-1.3) K/mcL Platelet Estimate (Normal) Immature Plt Fraction (1.1-6.1) % Hypochromasia (Not Present) Sodium (136-145) mEq/L Potassium (3.5-4.5) mEq/L Chloride (98-109) mEq/L Carbon Dioxide (19-29) mEq/L BUN (8-26) mg/dL Creatinine (0.72-1.25) mg/dL Est GFR ( Amer) (> 60) Est GFR (Non-Af Amer) (> 60) BUN/Creatinine Ratio (6-26) Glucose (70-99) mg/dL POC Glucose 115 H 157 H 157 H (58-89) Calculated Osmolality (280-300) Lactic Acid (0.5-2.2) mmol/L Calcium (8.6-10.8) mg/dL Phosphorus (2.3-4.7) mg/dL Magnesium (1.6-2.6) mg/dL Iron (65-175) mcg/dL % Saturation (20-55) % Transferrin (174-364) mg/dL Total Bilirubin (0.2-1.2) mg/dL AST (5-34) Units/L ALT (0-55) Units/L Alkaline Phosphatase (38-126) Units/L Troponin I (0-0.03) ng/mL Serum Total Protein (6.0-8.3) g/dL Albumin (3.5-5.0) g/dL Globulin (2.4-3.5) g/dL Albumin/Globulin Ratio (1.1-2.2) Vitamin B12 (213-816) pg/mL Folate (7.0-31.4) ng/mL TSH (0.350-4.840) mcIU/mL Vancomycin Trough (10-20) mcg/mL Blood Type Antibody Screen 07/25/16 07/25/16 07/25/16 Range/Units 05:02 05:02 05:02 WBC 28.9 H (4.3-11.1) K/mcL RBC 2.83 L (4.19-5.50) M/mcL Hgb 8.0 L (12.9-16.9) g/dL Hct 23.8 L (37.5-50.1) % MCV 84.1 (83.0-100.0) fL MCH 28.3 (28.0-33.3) pg MCHC 33.6 (31.6-35.5) g/dL RDW 14.6 H (11.5-14.5) % Plt Count 410 H (140-400) K/mcL MPV 9.2 L (9.4-12.4) fL Seg Neutrophils % % Band Neutrophils % (0-4) % Lymphocytes % % Monocytes % % Neutrophils # (1.6-8.9) K/mcL Lymphocytes # (0.6-4.6) K/mcL Monocytes # (0.0-1.3) K/mcL Platelet Estimate (Normal) Immature Plt Fraction (1.1-6.1) % Hypochromasia (Not Present) Sodium 131 L (136-145) mEq/L Potassium 4.3 (3.5-4.5) mEq/L Chloride 109 (98-109) mEq/L Carbon Dioxide 17 L (19-29) mEq/L BUN 21 (8-26) mg/dL Creatinine 0.84 (0.72-1.25) mg/dL Est GFR ( Amer) > 60 (> 60) Est GFR (Non-Af Amer) > 60 (> 60) BUN/Creatinine Ratio 25 (6-26) Glucose 211 H (70-99) mg/dL POC Glucose (58-89) Calculated Osmolality 281 (280-300) Lactic Acid 1.1 (0.5-2.2) mmol/L Calcium 8.9 (8.6-10.8) mg/dL Phosphorus 1.5 L (2.3-4.7) mg/dL Magnesium 1.6 (1.6-2.6) mg/dL Iron (65-175) mcg/dL % Saturation (20-55) % Transferrin (174-364) mg/dL Total Bilirubin 0.7 (0.2-1.2) mg/dL AST 22 (5-34) Units/L ALT 21 (0-55) Units/L Alkaline Phosphatase 87 (38-126) Units/L Troponin I (0-0.03) ng/mL Serum Total Protein 5.3 L (6.0-8.3) g/dL Albumin 1.3 L (3.5-5.0) g/dL Globulin 4.0 H (2.4-3.5) g/dL Albumin/Globulin Ratio 0.3 L (1.1-2.2) Vitamin B12 (213-816) pg/mL Folate (7.0-31.4) ng/mL TSH 0.855 (0.350-4.840) mcIU/mL Vancomycin Trough (10-20) mcg/mL Blood Type Antibody Screen 07/25/16 07/25/16 07/25/16 Range/Units 07:21 11:38 16:08 WBC (4.3-11.1) K/mcL RBC (4.19-5.50) M/mcL Hgb (12.9-16.9) g/dL Hct (37.5-50.1) % MCV (83.0-100.0) fL MCH (28.0-33.3) pg MCHC (31.6-35.5) g/dL RDW (11.5-14.5) % Plt Count (140-400) K/mcL MPV (9.4-12.4) fL Seg Neutrophils % % Band Neutrophils % (0-4) % Lymphocytes % % Monocytes % % Neutrophils # (1.6-8.9) K/mcL Lymphocytes # (0.6-4.6) K/mcL Monocytes # (0.0-1.3) K/mcL Platelet Estimate (Normal) Immature Plt Fraction (1.1-6.1) % Hypochromasia (Not Present) Sodium (136-145) mEq/L Potassium (3.5-4.5) mEq/L Chloride (98-109) mEq/L Carbon Dioxide (19-29) mEq/L BUN (8-26) mg/dL Creatinine (0.72-1.25) mg/dL Est GFR ( Amer) (> 60) Est GFR (Non-Af Amer) (> 60) BUN/Creatinine Ratio (6-26) Glucose (70-99) mg/dL POC Glucose 235 H 151 H 140 H (58-89) Calculated Osmolality (280-300) Lactic Acid (0.5-2.2) mmol/L Calcium (8.6-10.8) mg/dL Phosphorus (2.3-4.7) mg/dL Magnesium (1.6-2.6) mg/dL Iron (65-175) mcg/dL % Saturation (20-55) % Transferrin (174-364) mg/dL Total Bilirubin (0.2-1.2) mg/dL AST (5-34) Units/L ALT (0-55) Units/L Alkaline Phosphatase (38-126) Units/L Troponin I (0-0.03) ng/mL Serum Total Protein (6.0-8.3) g/dL Albumin (3.5-5.0) g/dL Globulin (2.4-3.5) g/dL Albumin/Globulin Ratio (1.1-2.2) Vitamin B12 (213-816) pg/mL Folate (7.0-31.4) ng/mL TSH (0.350-4.840) mcIU/mL Vancomycin Trough (10-20) mcg/mL Blood Type Antibody Screen 07/25/16 07/26/16 07/26/16 Range/Units 20:55 03:41 03:41 WBC 24.6 H (4.3-11.1) K/mcL RBC 2.94 L (4.19-5.50) M/mcL Hgb 8.2 L (12.9-16.9) g/dL Hct 24.2 L (37.5-50.1) % MCV 82.3 L (83.0-100.0) fL MCH 27.9 L (28.0-33.3) pg MCHC 33.9 (31.6-35.5) g/dL RDW 14.6 H (11.5-14.5) % Plt Count 403 H (140-400) K/mcL MPV 9.2 L (9.4-12.4) fL Seg Neutrophils % % Band Neutrophils % (0-4) % Lymphocytes % % Monocytes % % Neutrophils # (1.6-8.9) K/mcL Lymphocytes # (0.6-4.6) K/mcL Monocytes # (0.0-1.3) K/mcL Platelet Estimate (Normal) Immature Plt Fraction 1.0 L (1.1-6.1) % Hypochromasia (Not Present) Sodium 131 L (136-145) mEq/L Potassium 4.4 (3.5-4.5) mEq/L Chloride 109 (98-109) mEq/L Carbon Dioxide 17 L (19-29) mEq/L BUN 18 (8-26) mg/dL Creatinine 0.74 (0.72-1.25) mg/dL Est GFR ( Amer) > 60 (> 60) Est GFR (Non-Af Amer) > 60 (> 60) BUN/Creatinine Ratio 24 (6-26) Glucose 179 H (70-99) mg/dL POC Glucose 226 H (58-89) Calculated Osmolality 278 L (280-300) Lactic Acid (0.5-2.2) mmol/L Calcium 8.6 (8.6-10.8) mg/dL Phosphorus (2.3-4.7) mg/dL Magnesium (1.6-2.6) mg/dL Iron (65-175) mcg/dL % Saturation (20-55) % Transferrin (174-364) mg/dL Total Bilirubin (0.2-1.2) mg/dL AST (5-34) Units/L ALT (0-55) Units/L Alkaline Phosphatase (38-126) Units/L Troponin I (0-0.03) ng/mL Serum Total Protein (6.0-8.3) g/dL Albumin (3.5-5.0) g/dL Globulin (2.4-3.5) g/dL Albumin/Globulin Ratio (1.1-2.2) Vitamin B12 (213-816) pg/mL Folate (7.0-31.4) ng/mL TSH (0.350-4.840) mcIU/mL Vancomycin Trough (10-20) mcg/mL Blood Type Antibody Screen 07/26/16 07/26/16 07/26/16 Range/Units 03:41 07:19 11:36 WBC (4.3-11.1) K/mcL RBC (4.19-5.50) M/mcL Hgb (12.9-16.9) g/dL Hct (37.5-50.1) % MCV (83.0-100.0) fL MCH (28.0-33.3) pg MCHC (31.6-35.5) g/dL RDW (11.5-14.5) % Plt Count (140-400) K/mcL MPV (9.4-12.4) fL Seg Neutrophils % % Band Neutrophils % (0-4) % Lymphocytes % % Monocytes % % Neutrophils # (1.6-8.9) K/mcL Lymphocytes # (0.6-4.6) K/mcL Monocytes # (0.0-1.3) K/mcL Platelet Estimate (Normal) Immature Plt Fraction (1.1-6.1) % Hypochromasia (Not Present) Sodium (136-145) mEq/L Potassium (3.5-4.5) mEq/L Chloride (98-109) mEq/L Carbon Dioxide (19-29) mEq/L BUN (8-26) mg/dL Creatinine (0.72-1.25) mg/dL Est GFR ( Amer) (> 60) Est GFR (Non-Af Amer) (> 60) BUN/Creatinine Ratio (6-26) Glucose (70-99) mg/dL POC Glucose 199 H 160 H (58-89) Calculated Osmolality (280-300) Lactic Acid (0.5-2.2) mmol/L Calcium (8.6-10.8) mg/dL Phosphorus (2.3-4.7) mg/dL Magnesium (1.6-2.6) mg/dL Iron (65-175) mcg/dL % Saturation (20-55) % Transferrin (174-364) mg/dL Total Bilirubin (0.2-1.2) mg/dL AST (5-34) Units/L ALT (0-55) Units/L Alkaline Phosphatase (38-126) Units/L Troponin I (0-0.03) ng/mL Serum Total Protein (6.0-8.3) g/dL Albumin (3.5-5.0) g/dL Globulin (2.4-3.5) g/dL Albumin/Globulin Ratio (1.1-2.2) Vitamin B12 (213-816) pg/mL Folate (7.0-31.4) ng/mL TSH (0.350-4.840) mcIU/mL Vancomycin Trough 21.8 H* (10-20) mcg/mL Blood Type Antibody Screen 07/26/16 07/26/16 07/26/16 Range/Units 15:55 16:07 21:27 WBC (4.3-11.1) K/mcL RBC (4.19-5.50) M/mcL Hgb (12.9-16.9) g/dL Hct (37.5-50.1) % MCV (83.0-100.0) fL MCH (28.0-33.3) pg MCHC (31.6-35.5) g/dL RDW (11.5-14.5) % Plt Count (140-400) K/mcL MPV (9.4-12.4) fL Seg Neutrophils % % Band Neutrophils % (0-4) % Lymphocytes % % Monocytes % % Neutrophils # (1.6-8.9) K/mcL Lymphocytes # (0.6-4.6) K/mcL Monocytes # (0.0-1.3) K/mcL Platelet Estimate (Normal) Immature Plt Fraction (1.1-6.1) % Hypochromasia (Not Present) Sodium (136-145) mEq/L Potassium (3.5-4.5) mEq/L Chloride (98-109) mEq/L Carbon Dioxide (19-29) mEq/L BUN (8-26) mg/dL Creatinine (0.72-1.25) mg/dL Est GFR ( Amer) (> 60) Est GFR (Non-Af Amer) (> 60) BUN/Creatinine Ratio (6-26) Glucose (70-99) mg/dL POC Glucose 220 H 172 H (58-89) Calculated Osmolality (280-300) Lactic Acid (0.5-2.2) mmol/L Calcium (8.6-10.8) mg/dL Phosphorus 1.5 L (2.3-4.7) mg/dL Magnesium 1.2 L (1.6-2.6) mg/dL Iron (65-175) mcg/dL % Saturation (20-55) % Transferrin (174-364) mg/dL Total Bilirubin (0.2-1.2) mg/dL AST (5-34) Units/L ALT (0-55) Units/L Alkaline Phosphatase (38-126) Units/L Troponin I (0-0.03) ng/mL Serum Total Protein (6.0-8.3) g/dL Albumin (3.5-5.0) g/dL Globulin (2.4-3.5) g/dL Albumin/Globulin Ratio (1.1-2.2) Vitamin B12 (213-816) pg/mL Folate (7.0-31.4) ng/mL TSH (0.350-4.840) mcIU/mL Vancomycin Trough (10-20) mcg/mL Blood Type Antibody Screen 07/26/16 07/27/16 07/27/16 Range/Units 22:23 05:03 05:03 WBC 20.1 H (4.3-11.1) K/mcL RBC 2.78 L (4.19-5.50) M/mcL Hgb 7.9 L (12.9-16.9) g/dL Hct 23.3 L (37.5-50.1) % MCV 83.8 (83.0-100.0) fL MCH 28.4 (28.0-33.3) pg MCHC 33.9 (31.6-35.5) g/dL RDW 14.8 H (11.5-14.5) % Plt Count 326 (140-400) K/mcL MPV 8.7 L (9.4-12.4) fL Seg Neutrophils % % Band Neutrophils % (0-4) % Lymphocytes % % Monocytes % % Neutrophils # (1.6-8.9) K/mcL Lymphocytes # (0.6-4.6) K/mcL Monocytes # (0.0-1.3) K/mcL Platelet Estimate (Normal) Immature Plt Fraction (1.1-6.1) % Hypochromasia (Not Present) Sodium 134 L (136-145) mEq/L Potassium 3.9 (3.5-4.5) mEq/L Chloride 112 H (98-109) mEq/L Carbon Dioxide 19 (19-29) mEq/L BUN 17 (8-26) mg/dL Creatinine 0.66 L (0.72-1.25) mg/dL Est GFR ( Amer) > 60 (> 60) Est GFR (Non-Af Amer) > 60 (> 60) BUN/Creatinine Ratio 26 (6-26) Glucose 129 H (70-99) mg/dL POC Glucose (58-89) Calculated Osmolality 281 (280-300) Lactic Acid 0.9 (0.5-2.2) mmol/L Calcium 8.4 L (8.6-10.8) mg/dL Phosphorus (2.3-4.7) mg/dL Magnesium (1.6-2.6) mg/dL Iron (65-175) mcg/dL % Saturation (20-55) % Transferrin (174-364) mg/dL Total Bilirubin 0.6 (0.2-1.2) mg/dL AST 19 (5-34) Units/L ALT 17 (0-55) Units/L Alkaline Phosphatase 67 (38-126) Units/L Troponin I (0-0.03) ng/mL Serum Total Protein 5.1 L (6.0-8.3) g/dL Albumin 1.2 L (3.5-5.0) g/dL Globulin 3.9 H (2.4-3.5) g/dL Albumin/Globulin Ratio 0.3 L (1.1-2.2) Vitamin B12 (213-816) pg/mL Folate (7.0-31.4) ng/mL TSH (0.350-4.840) mcIU/mL Vancomycin Trough (10-20) mcg/mL Blood Type Antibody Screen
[2016-07-27] MEDS ORDERED: Vancomycin 1,000 MG in D5% in Water 250 ML IVPB SCH ×2 (15:00→16:00)
[2016-07-27] MEDS: Gabapentin 300 MG CAPSULE PO SCH (20:27)
[2016-07-27] MEDS: Insulin DETEMIR 100 UNIT/ML X5UNITS SQ SCH (20:28)
[2016-07-27] MEDS ORDERED: 0.9 % Sodium Chloride 250 ML ONE (21:56)
[2016-07-28] MEDS: Levalbuterol Neb 0.63 MG/3 ML IH SCH ×3 (03:59→16:08)
[2016-07-28 04:59] LABS: Basophils % 0.1 %; Eosinophils # 1.1 K/mcL (0.0-0.6); Eosinophils % 7.1 %; Hematocrit 21.5 % (37.5-50.1); Hemoglobin 7.2 g/dL (12.9-16.9); Lymphocytes # 1.3 K/mcL (0.6-4.6); Lymphocytes % 7.7 %; Mean Corpuscular HGB Conc 33.5 g/dL (31.6-35.5); Mean Corpuscular Hemoglobin 27.8 pg (28.0-33.3); Mean Platelet Volume 8.9 fL (9.4-12.4); Monocytes # 1.3 K/mcL (0.0-1.3); Neutrophils # 12.3 K/mcL (1.6-8.9); Platelet Count 286 K/mcL (140-400); Red Blood Count 2.59 M/mcL (4.19-5.50); Red Cell Distribution Width 14.8 % (11.5-14.5); Segmented Neutrophils % 76.1 %
[2016-07-28 05:17] LABS: BUN/Creatinine Ratio 22 (6-26); Blood Urea Nitrogen 13 mg/dL (8-26); Calcium 8.2 mg/dL (8.6-10.8); Carbon Dioxide 20 mEq/L (19-29); Chloride 112 mEq/L (98-109); Glucose 102 mg/dL (70-99); Osmolality,Calculated 278 (280-300); Potassium 3.9 mEq/L (3.5-4.5); Sodium 134 mEq/L (136-145); eGFR For African Americans > 60 (> 60); eGFR For Non-African Americans > 60 (> 60)
[2016-07-28] MEDS: Piperacillin/Tazobactam 3.375 GM in D5% in Water (Mini-Bag+) 100 ML IVPB SCH (05:55)
[2016-07-28] MEDS: *HR* Heparin 5,000 UNIT/ML VIAL SQ SCH (05:55)
--- NOTE | 2016-07-28 07:05 | General Surgery Progress Note ---
<Hans Santana - Last Filed: 07/28/16 10:25> Date of Encounter: 07/28/16 Time of Encounter: 06:40 - Assessment and Plan (1) Decubitus ulcer of sacral region, unstageable Status: Acute 1. Absolute pressure relief. Patient has low air loss mattress. 2. Underwent debridement at bedside on 07/27/16. Continue with serial debridement. Continue to pack with Dakins and gauze roll, cover with absorbent pad. 3. Need for high protein diet, concern of inadequate PO intake. Ordered strict I&Os Consult place to nutrition for 24hr calorie count. Consider PEG placement if PO intake inadequate. Discussed with Almita De Anda CNP, will start Zinc Sulfate for 2 weeks, start multivitamin and Vitamin C supplementation. (2) Sepsis Status: Acute IV antibiotics- management per medicine service Decubitus ulcer is an unlikely source of sepsis Qualifiers: Sepsis type: sepsis due to unspecified organism Qualified Code(s): A41.9 - Sepsis, unspecified organism (3) Pneumonia Status: Acute IV antibiotics Management per medicine service Qualifiers: Pneumonia type: due to unspecified organism Laterality: bilateral Lung location: lower lobe of lung Qualified Code(s): J18.9 - Pneumonia, unspecified organism (4) Urinary tract infection Status: Acute IV antibiotics Management per medicine service Qualifiers: Urinary tract infection type: catheter-associated UTI Indwelling urinary catheter type: indwelling urethral catheter Encounter type: initial encounter Qualified Code(s): T83.511A - Infection and inflammatory reaction due to indwelling urethral catheter, initial encounter; N39.0 - Urinary tract infection , site not specified (5) Hypertension Status: Chronic Management per medicine service Qualifiers: Hypertension type: essential hypertension Qualified Code(s): I10 - Essential (primary) hypertension (6) Diabetes Status: Chronic Management per medicine service Qualifiers: Diabetes mellitus type: type 2 Diabetes mellitus complication status: with circulatory complication Diabetes mellitus complication detail: with other circulatory complications Diabetes mellitus terminal computer operator insulin use: without half-way use Qualified Code(s): E11.59 - Type 2 diabetes mellitus with other circulatory complications (7) Hyperlipidemia Status: Chronic Qualifiers: Hyperlipidemia type: unspecified Qualified Code(s): E78.5 - Hyperlipidemia , unspecified (8) DVT prophylaxis Status: Acute Heparin SQ Subjective Patient reports: no new complaints, feels better, afebrile, other (patient is pleasantly confused) Objective Vital Signs - Last 8 Hours Temp Pulse Resp BP Pulse Ox 07/28/16 04:00 98.6 F 87 16 149/61 100 07/28/16 03:59 20 100 07/28/16 00:43 98.0 F 99 20 132/47 95 07/27/16 23:30 103 Intake and Output 07/27/16 07/27/16 07/28/16 15:59 23:59 07:59 Intake Total 1100 / 1100 1180 / 1180 150 / 150 Output Total 975 / 975 1100 / 1100 Balance 1100 / 1100 205 / 205 -950 / -950 Intake: IV Fluids 1100 / 1100 1050 / 1050 100 / 100 0.9 % Sodium Chloride 1, 1000 / 1000 950 / 950 000 ML @ 125 mls/hr IVC . Q8H JOSIE Rx#:[id number] Zosyn 3.375 GM In 100 / 100 100 / 100 100 / 100 Dextrose 5% (Minibag+) 100 ML 100 ML @ 25 mls/hr IVPB Q8H JOS[facility] Rx#: [id number] Oral 130 / 130 50 / 50 Output: Catheter 975 / 975 1100 / 1100 Other: Meal Dinner Percent of Meal Consumed 10% Blood Glucose* 121 178 110 - General physical appearance well developed, well nourished, no distress - Eyes normal ocular movement - ENT normal mucosa, no congestion, atraumatic, normocephalic - Neck Neck exam: trachea midline - Respiratory normal respiratory effort, clear to auscultation - Cardiovascular Cardiovascular exam: Present: RRR - Abdomen Abdomen: Present: bowel sounds present, soft, non tender - Integumentary other (unstageable [id number] sacral decubitus ulcer) - Musculoskeletal other (severe deconditioning) - Psychiatric oriented to person, other (speech is mumbled but coherent.) - Labs 07/28/16 04:40 07/28/16 04:40 Diabetes panel 07/28/16 Range/Units 04:40 Sodium 134 L (136-145) mEq/L Potassium 3.9 (3.5-4.5) mEq/L Chloride 112 H (98-109) mEq/L Carbon Dioxide 20 (19-29) mEq/L BUN 13 (8-26) mg/dL Creatinine 0.60 L (0.72-1.25) mg/dL Glucose 102 H (70-99) mg/dL Calcium 8.2 L (8.6-10.8) mg/dL Calcium panel 07/28/16 Range/Units 04:40 Calcium 8.2 L (8.6-10.8) mg/dL Pituitary panel 07/28/16 Range/Units 04:40 Sodium 134 L (136-145) mEq/L Potassium 3.9 (3.5-4.5) mEq/L Chloride 112 H (98-109) mEq/L Carbon Dioxide 20 (19-29) mEq/L BUN 13 (8-26) mg/dL Creatinine 0.60 L (0.72-1.25) mg/dL Glucose 102 H (70-99) mg/dL Calcium 8.2 L (8.6-10.8) mg/dL Adrenal panel 07/28/16 Range/Units 04:40 Sodium 134 L (136-145) mEq/L Potassium 3.9 (3.5-4.5) mEq/L Chloride 112 H (98-109) mEq/L Carbon Dioxide 20 (19-29) mEq/L BUN 13 (8-26) mg/dL Creatinine 0.60 L (0.72-1.25) mg/dL Glucose 102 H (70-99) mg/dL Calcium 8.2 L (8.6-10.8) mg/dL - VTE Documentation of Mechanical Device: Graduated compression elastic hosiery Consult Discharge Plan - Plan Instructions: Atrial Fibrillation (DC), Urinary Tract Infection in Men (DC), Sepsis (DC), Pneumonia (DC) Referrals: Danny Watt MD [Primary Care Provider] - (After discharge from long-term acute care facility) Prescriptions: Acetaminophen [Tylenol] 650 mg PO Q6HR PRN #30 tablet PRN Reason: Fever Albuterol Neb [Proventil Neb] 2.5 mg IH Q2H PRN #30 inhsol PRN Reason: Shortness Of Breath/Wheezing Cefdinir [Omnicef] 300 mg PO BID #14 capsule Docusate [Colace] 100 mg PO BID PRN #30 capsule PRN Reason: Constipation Ferrous Sulfate 325 mg PO BIDWM #60 tablet Folic Acid 1 mg PO DAILY #30 tablet Lactobacillus [Culturelle] 1 each PO BID #30 cap.sprink Magnesium Oxide [Magnesium] 400 mg PO DAILY #30 tablet Metoprolol [Lopressor] 12.5 mg PO BID #30 tablet Multivit/Ca/Min/Fe/FA [Thera M Plus] 1 tab PO DAILY #30 tablet Sodium Hypochlorite 0.25% [Dakin's (Half-Strength 0.25%)] 1 appl TP BID #1 bottle Vancomycin/0.9 % Sod Chloride [Vancomycin 1 G/100Ml-0.9% NaCl] 1 gm IV DAILY # 10 plast..bag Zinc Sulfate 220 mg PO DAILY #30 capsule <Lc Reed - Last Filed: 07/29/16 08:44> Date of Encounter: 07/28/16 Objective Intake and Output 07/28/16 07/29/16 07/29/16 23:59 07:59 15:59 Other: Blood Glucose* 133 - Labs 07/28/16 12:15 07/28/16 04:40 - Attending Attestation I examined this patient and my medical decision-making was reviewed with the [facility] DIRECTOR/PA/Advanced Practice Nurse/Resident Physician. I agree with the documented findings, disposition and treatment plan as described except to the extent set forth below. Lc Reed MD FACS
[2016-07-28] MEDS: Insulin LISPRO 300 UNITS/3 ML VIAL SQ SCH ×2 (08:23→12:02)
--- NOTE | 2016-07-28 09:09 | Internal Med Progress Note ---
Date of Encounter: 07/28/16 Time of Encounter: 08:30 - Assessment and plan (1) Bacteremia due to Enterococcus Current Visit: Yes Status: Acute Assessment and plan: Continue IV antibiotics. Plan for two-week course of antibiotics. (2) Decubitus ulcer of sacral region, unstageable Current Visit: Yes Status: Acute Assessment and plan: Status post debridement done yesterday. This in a deep pocket with purulent fluid. The CBC count is improving today. Continue IV antibiotics. Local wound care. Plan to discharge patient to long-term acute care for close follow- up and decubitus ulcer (3) Healthcare-associated pneumonia Current Visit: Yes Status: Acute Assessment and plan: The previously count is improving. We will de-escalate antibiotic covered (4) Hypertension Current Visit: Yes Status: Chronic Assessment and plan: Blood pressure is improved compared to yesterday. We will continue to monitor. Qualifiers: Hypertension type: essential hypertension Qualified Code(s): I10 - Essential (primary) hypertension (5) Hyponatremia Current Visit: Yes Status: Acute Assessment and plan: Stable. (6) New onset a-fib Current Visit: Yes Status: Acute Assessment and plan: Rate controlled. Not on anticoagulation due to anemia. Follow up outpatient with cardiology for further management. (7) Normocytic anemia Current Visit: Yes Status: Acute Assessment and plan: Hemoglobin 7.2 today. We will check iron levels, folic acid levels. Mild decrease today could be related to those yesterday. We will follow hemoglobin and hematocrit levels. (8) Sepsis Current Visit: Yes Status: Acute Assessment and plan: From UTI and pneumonia and also has bacteremia. WBC count is improving. De- escalate antibiotics. Qualifiers: Sepsis type: sepsis due to unspecified organism Qualified Code(s): A41.9 - Sepsis, unspecified organism (9) Urinary tract infection Current Visit: Yes Status: Acute Assessment and plan: With Escherichia coli that sensitive to Zosyn and cephalosporins. Continue Zosyn for now. Qualifiers: Urinary tract infection type: catheter-associated UTI Indwelling urinary catheter type: indwelling urethral catheter Encounter type: initial encounter Qualified Code(s): T83.511A - Infection and inflammatory reaction due to indwelling urethral catheter, initial encounter; N39.0 - Urinary tract infection , site not specified (10) DVT prophylaxis Current Visit: Yes Status: Acute Assessment and plan: On subcutaneous heparin - Subjective Interval history: Patient is awake and alert and sitting up in chair and having breakfast. No complaints at this time. Underwent debridement at bedside yesterday. No fever or chills reported overnight. - Constitutional Vitals: Temp Pulse Resp BP Pulse Ox 98.6 F 87 16 149/61 100 07/28/16 04:00 07/28/16 04:00 07/28/16 04:00 07/28/16 04:00 07/28/16 04:00 General appearance: Present: A&O X 2, pleasant, no acute distress, answers questions appropriately - Respiratory Respiratory exam: Present: CTAB. Absent: accessory muscle use, rales, rhonchi, wheezes - GI/Abdominal GI/Abdominal exam: Present: normal bowel sounds, soft, no peritoneal signs. Absent: distended, tenderness - Extremities Exam Extremities exam: Present: warm, radial pulses palpable and symetrical. Absent : calf tenderness, cyanotic, pedal edema - Neurological Exam Neurological exam: Present: alert, no focal deficits, strengths equal and symetr throughout. Absent: facial droop, speech deficit - Skin Skin exam: Present: dry, intact Internal Medicine: Result - Labs CBC & Chem 7: 07/28/16 04:40 07/28/16 04:40 Labs: Short CBC 07/28/16 Range/Units 04:40 WBC 16.2 H (4.3-11.1) K/mcL Hgb 7.2 L (12.9-16.9) g/dL Hct 21.5 L (37.5-50.1) % Plt Count 286 (140-400) K/mcL Neutrophils # 12.3 H (1.6-8.9) K/mcL BMP 07/28/16 04:40 Sodium 134 L Potassium 3.9 Chloride 112 H Carbon Dioxide 20 BUN 13 Creatinine 0.60 L Glucose 102 H Calcium 8.2 L - ABG Interpretation ABG results: ABG ABG pH 7.42 pH Units (7.32-7.45) 07/21/16 16:15 ABG pCO2 36 mmHg (35-45) 07/21/16 16:15 ABG pO2 79 mmHg (85-104) L 07/21/16 16:15 ABG O2 Saturation 96 % (95-98) 07/21/16 16:15 PT/INR, D-dimer PT 16.4 Seconds (9.4-12.1) H 07/21/16 15:35 - VTE Documentation of Mechanical Device: Graduated compression elastic hosiery Consult Discharge Plan - Plan Referrals: Danny Watt MD [Primary Care Provider] - - Attending Attestation This document has been at least partially created by [employer] recognition technology by Dr. Coreas. Errors in grammar, wording or other phrases may exist. If errors are found after the documentation is signed, they will be addressed individually in the addendum section of this document when appropriate. Medical Decision Making - MDM Narrative Medical decision making narrative: High risk for complications - Lab Data Lab results reviewed: Yes I reviewed the patient's lab results. Result diagrams: 07/28/16 04:40 07/28/16 04:40 Lab Results 07/21/16 07/21/16 07/21/16 Range/Units 20:55 21:08 21:08 WBC (4.3-11.1) K/mcL RBC (4.19-5.50) M/mcL Hgb (12.9-16.9) g/dL Hct (37.5-50.1) % MCV (83.0-100.0) fL MCH (28.0-33.3) pg MCHC (31.6-35.5) g/dL RDW (11.5-14.5) % Plt Count (140-400) K/mcL MPV (9.4-12.4) fL Immature Gran % (0-4) % Seg Neutrophils % % Band Neutrophils % (0-4) % Lymphocytes % % Monocytes % % Eosinophils % % Basophils % % Neutrophils # (1.6-8.9) K/mcL Lymphocytes # (0.6-4.6) K/mcL Monocytes # (0.0-1.3) K/mcL Eosinophils # (0.0-0.6) K/mcL Basophils # (0.0-0.2) K/mcL Platelet Estimate (Normal) Immature Plt Fraction (1.1-6.1) % Hypochromasia (Not Present) Sodium (136-145) mEq/L Potassium (3.5-4.5) mEq/L Chloride (98-109) mEq/L Carbon Dioxide (19-29) mEq/L BUN (8-26) mg/dL Creatinine (0.72-1.25) mg/dL Est GFR ( Amer) (> 60) Est GFR (Non-Af Amer) (> 60) BUN/Creatinine Ratio (6-26) Glucose (70-99) mg/dL POC Glucose 237 H (58-89) Calculated Osmolality (280-300) Lactic Acid (0.5-2.2) mmol/L Calcium (8.6-10.8) mg/dL Phosphorus 1.7 L (2.3-4.7) mg/dL Magnesium 2.1 (1.6-2.6) mg/dL Iron (65-175) mcg/dL % Saturation (20-55) % Transferrin (174-364) mg/dL Total Bilirubin (0.2-1.2) mg/dL AST (5-34) Units/L ALT (0-55) Units/L Alkaline Phosphatase (38-126) Units/L Troponin I 0.09 H* (0-0.03) ng/mL Serum Total Protein (6.0-8.3) g/dL Albumin (3.5-5.0) g/dL Globulin (2.4-3.5) g/dL Albumin/Globulin Ratio (1.1-2.2) Vitamin B12 (213-816) pg/mL Folate (7.0-31.4) ng/mL TSH (0.350-4.840) mcIU/mL Vancomycin Trough (10-20) mcg/mL Blood Type Antibody Screen 07/22/16 07/22/16 07/22/16 Range/Units 04:03 04:03 04:03 WBC 27.4 H (4.3-11.1) K/mcL RBC 3.12 L (4.19-5.50) M/mcL Hgb 8.7 L (12.9-16.9) g/dL Hct 26.6 L (37.5-50.1) % MCV 85.3 (83.0-100.0) fL MCH 27.9 L (28.0-33.3) pg MCHC 32.7 (31.6-35.5) g/dL RDW 14.2 (11.5-14.5) % Plt Count 476 H (140-400) K/mcL MPV 9.8 (9.4-12.4) fL Immature Gran % (0-4) % Seg Neutrophils % 88.0 % Band Neutrophils % 8.0 H (0-4) % Lymphocytes % 2.0 % Monocytes % 2.0 % Eosinophils % % Basophils % % Neutrophils # 26.3 H (1.6-8.9) K/mcL Lymphocytes # 0.6 (0.6-4.6) K/mcL Monocytes # 0.6 (0.0-1.3) K/mcL Eosinophils # (0.0-0.6) K/mcL Basophils # (0.0-0.2) K/mcL Platelet Estimate Slight increase H (Normal) Immature Plt Fraction (1.1-6.1) % Hypochromasia Present A (Not Present) Sodium 131 L (136-145) mEq/L Potassium 5.0 H (3.5-4.5) mEq/L Chloride 109 (98-109) mEq/L Carbon Dioxide 17 L (19-29) mEq/L BUN 35 H (8-26) mg/dL Creatinine 0.98 (0.72-1.25) mg/dL Est GFR ( Amer) > 60 (> 60) Est GFR (Non-Af Amer) > 60 (> 60) BUN/Creatinine Ratio 36 H (6-26) Glucose 182 H (70-99) mg/dL POC Glucose (58-89) Calculated Osmolality 285 (280-300) Lactic Acid (0.5-2.2) mmol/L Calcium 8.9 (8.6-10.8) mg/dL Phosphorus (2.3-4.7) mg/dL Magnesium (1.6-2.6) mg/dL Iron (65-175) mcg/dL % Saturation (20-55) % Transferrin (174-364) mg/dL Total Bilirubin (0.2-1.2) mg/dL AST (5-34) Units/L ALT (0-55) Units/L Alkaline Phosphatase (38-126) Units/L Troponin I 0.08 H* (0-0.03) ng/mL Serum Total Protein (6.0-8.3) g/dL Albumin (3.5-5.0) g/dL Globulin (2.4-3.5) g/dL Albumin/Globulin Ratio (1.1-2.2) Vitamin B12 (213-816) pg/mL Folate (7.0-31.4) ng/mL TSH 0.633 (0.350-4.840) mcIU/mL Vancomycin Trough (10-20) mcg/mL Blood Type Antibody Screen 07/22/16 07/22/16 07/22/16 Range/Units 07:50 11:23 16:33 WBC (4.3-11.1) K/mcL RBC (4.19-5.50) M/mcL Hgb (12.9-16.9) g/dL Hct (37.5-50.1) % MCV (83.0-100.0) fL MCH (28.0-33.3) pg MCHC (31.6-35.5) g/dL RDW (11.5-14.5) % Plt Count (140-400) K/mcL MPV (9.4-12.4) fL Immature Gran % (0-4) % Seg Neutrophils % % Band Neutrophils % (0-4) % Lymphocytes % % Monocytes % % Eosinophils % % Basophils % % Neutrophils # (1.6-8.9) K/mcL Lymphocytes # (0.6-4.6) K/mcL Monocytes # (0.0-1.3) K/mcL Eosinophils # (0.0-0.6) K/mcL Basophils # (0.0-0.2) K/mcL Platelet Estimate (Normal) Immature Plt Fraction (1.1-6.1) % Hypochromasia (Not Present) Sodium (136-145) mEq/L Potassium (3.5-4.5) mEq/L Chloride (98-109) mEq/L Carbon Dioxide (19-29) mEq/L BUN (8-26) mg/dL Creatinine (0.72-1.25) mg/dL Est GFR ( Amer) (> 60) Est GFR (Non-Af Amer) (> 60) BUN/Creatinine Ratio (6-26) Glucose (70-99) mg/dL POC Glucose 206 H 143 H 157 H (58-89) Calculated Osmolality (280-300) Lactic Acid (0.5-2.2) mmol/L Calcium (8.6-10.8) mg/dL Phosphorus (2.3-4.7) mg/dL Magnesium (1.6-2.6) mg/dL Iron (65-175) mcg/dL % Saturation (20-55) % Transferrin (174-364) mg/dL Total Bilirubin (0.2-1.2) mg/dL AST (5-34) Units/L ALT (0-55) Units/L Alkaline Phosphatase (38-126) Units/L Troponin I (0-0.03) ng/mL Serum Total Protein (6.0-8.3) g/dL Albumin (3.5-5.0) g/dL Globulin (2.4-3.5) g/dL Albumin/Globulin Ratio (1.1-2.2) Vitamin B12 (213-816) pg/mL Folate (7.0-31.4) ng/mL TSH (0.350-4.840) mcIU/mL Vancomycin Trough (10-20) mcg/mL Blood Type Antibody Screen 07/22/16 07/23/16 07/23/16 Range/Units 20:39 04:16 04:16 WBC 24.8 H (4.3-11.1) K/mcL RBC 2.82 L (4.19-5.50) M/mcL Hgb 8.1 L (12.9-16.9) g/dL Hct 23.9 L (37.5-50.1) % MCV 84.8 (83.0-100.0) fL MCH 28.7 (28.0-33.3) pg MCHC 33.9 (31.6-35.5) g/dL RDW 14.3 (11.5-14.5) % Plt Count 436 H (140-400) K/mcL MPV 9.5 (9.4-12.4) fL Immature Gran % (0-4) % Seg Neutrophils % % Band Neutrophils % (0-4) % Lymphocytes % % Monocytes % % Eosinophils % % Basophils % % Neutrophils # (1.6-8.9) K/mcL Lymphocytes # (0.6-4.6) K/mcL Monocytes # (0.0-1.3) K/mcL Eosinophils # (0.0-0.6) K/mcL Basophils # (0.0-0.2) K/mcL Platelet Estimate (Normal) Immature Plt Fraction (1.1-6.1) % Hypochromasia (Not Present) Sodium (136-145) mEq/L Potassium (3.5-4.5) mEq/L Chloride (98-109) mEq/L Carbon Dioxide (19-29) mEq/L BUN (8-26) mg/dL Creatinine (0.72-1.25) mg/dL Est GFR ( Amer) (> 60) Est GFR (Non-Af Amer) (> 60) BUN/Creatinine Ratio (6-26) Glucose (70-99) mg/dL POC Glucose 212 H (58-89) Calculated Osmolality (280-300) Lactic Acid (0.5-2.2) mmol/L Calcium (8.6-10.8) mg/dL Phosphorus (2.3-4.7) mg/dL Magnesium (1.6-2.6) mg/dL Iron (65-175) mcg/dL % Saturation (20-55) % Transferrin (174-364) mg/dL Total Bilirubin (0.2-1.2) mg/dL AST (5-34) Units/L ALT (0-55) Units/L Alkaline Phosphatase (38-126) Units/L Troponin I (0-0.03) ng/mL Serum Total Protein (6.0-8.3) g/dL Albumin (3.5-5.0) g/dL Globulin (2.4-3.5) g/dL Albumin/Globulin Ratio (1.1-2.2) Vitamin B12 (213-816) pg/mL Folate (7.0-31.4) ng/mL TSH (0.350-4.840) mcIU/mL Vancomycin Trough 14.3 (10-20) mcg/mL Blood Type Antibody Screen 07/23/16 07/23/16 07/23/16 Range/Units 04:16 07:58 12:06 WBC (4.3-11.1) K/mcL RBC (4.19-5.50) M/mcL Hgb (12.9-16.9) g/dL Hct (37.5-50.1) % MCV (83.0-100.0) fL MCH (28.0-33.3) pg MCHC (31.6-35.5) g/dL RDW (11.5-14.5) % Plt Count (140-400) K/mcL MPV (9.4-12.4) fL Immature Gran % (0-4) % Seg Neutrophils % % Band Neutrophils % (0-4) % Lymphocytes % % Monocytes % % Eosinophils % % Basophils % % Neutrophils # (1.6-8.9) K/mcL Lymphocytes # (0.6-4.6) K/mcL Monocytes # (0.0-1.3) K/mcL Eosinophils # (0.0-0.6) K/mcL Basophils # (0.0-0.2) K/mcL Platelet Estimate (Normal) Immature Plt Fraction (1.1-6.1) % Hypochromasia (Not Present) Sodium 130 L (136-145) mEq/L Potassium 4.6 H (3.5-4.5) mEq/L Chloride 109 (98-109) mEq/L Carbon Dioxide 18 L (19-29) mEq/L BUN 28 H (8-26) mg/dL Creatinine 0.88 (0.72-1.25) mg/dL Est GFR ( Amer) > 60 (> 60) Est GFR (Non-Af Amer) > 60 (> 60) BUN/Creatinine Ratio 32 H (6-26) Glucose 194 H (70-99) mg/dL POC Glucose 231 H 172 H (58-89) Calculated Osmolality 281 (280-300) Lactic Acid (0.5-2.2) mmol/L Calcium 9.1 (8.6-10.8) mg/dL Phosphorus (2.3-4.7) mg/dL Magnesium 1.9 (1.6-2.6) mg/dL Iron (65-175) mcg/dL % Saturation (20-55) % Transferrin (174-364) mg/dL Total Bilirubin (0.2-1.2) mg/dL AST (5-34) Units/L ALT (0-55) Units/L Alkaline Phosphatase (38-126) Units/L Troponin I (0-0.03) ng/mL Serum Total Protein (6.0-8.3) g/dL Albumin (3.5-5.0) g/dL Globulin (2.4-3.5) g/dL Albumin/Globulin Ratio (1.1-2.2) Vitamin B12 (213-816) pg/mL Folate (7.0-31.4) ng/mL TSH (0.350-4.840) mcIU/mL Vancomycin Trough (10-20) mcg/mL Blood Type Antibody Screen 07/23/16 07/23/16 07/24/16 Range/Units 16:09 20:43 02:28 WBC 28.5 H (4.3-11.1) K/mcL RBC 2.86 L (4.19-5.50) M/mcL Hgb 8.0 L (12.9-16.9) g/dL Hct 24.0 L (37.5-50.1) % MCV 83.9 (83.0-100.0) fL MCH 28.0 (28.0-33.3) pg MCHC 33.3 (31.6-35.5) g/dL RDW 14.4 (11.5-14.5) % Plt Count 444 H (140-400) K/mcL MPV 9.3 L (9.4-12.4) fL Immature Gran % (0-4) % Seg Neutrophils % % Band Neutrophils % (0-4) % Lymphocytes % % Monocytes % % Eosinophils % % Basophils % % Neutrophils # (1.6-8.9) K/mcL Lymphocytes # (0.6-4.6) K/mcL Monocytes # (0.0-1.3) K/mcL Eosinophils # (0.0-0.6) K/mcL Basophils # (0.0-0.2) K/mcL Platelet Estimate (Normal) Immature Plt Fraction (1.1-6.1) % Hypochromasia (Not Present) Sodium (136-145) mEq/L Potassium (3.5-4.5) mEq/L Chloride (98-109) mEq/L Carbon Dioxide (19-29) mEq/L BUN (8-26) mg/dL Creatinine (0.72-1.25) mg/dL Est GFR ( Amer) (> 60) Est GFR (Non-Af Amer) (> 60) BUN/Creatinine Ratio (6-26) Glucose (70-99) mg/dL POC Glucose 103 H 214 H (58-89) Calculated Osmolality (280-300) Lactic Acid (0.5-2.2) mmol/L Calcium (8.6-10.8) mg/dL Phosphorus (2.3-4.7) mg/dL Magnesium (1.6-2.6) mg/dL Iron (65-175) mcg/dL % Saturation (20-55) % Transferrin (174-364) mg/dL Total Bilirubin (0.2-1.2) mg/dL AST (5-34) Units/L ALT (0-55) Units/L Alkaline Phosphatase (38-126) Units/L Troponin I (0-0.03) ng/mL Serum Total Protein (6.0-8.3) g/dL Albumin (3.5-5.0) g/dL Globulin (2.4-3.5) g/dL Albumin/Globulin Ratio (1.1-2.2) Vitamin B12 (213-816) pg/mL Folate (7.0-31.4) ng/mL TSH (0.350-4.840) mcIU/mL Vancomycin Trough (10-20) mcg/mL Blood Type Antibody Screen 07/24/16 07/24/16 07/24/16 Range/Units 02:28 02:28 07:14 WBC (4.3-11.1) K/mcL RBC (4.19-5.50) M/mcL Hgb (12.9-16.9) g/dL Hct (37.5-50.1) % MCV (83.0-100.0) fL MCH (28.0-33.3) pg MCHC (31.6-35.5) g/dL RDW (11.5-14.5) % Plt Count (140-400) K/mcL MPV (9.4-12.4) fL Immature Gran % (0-4) % Seg Neutrophils % % Band Neutrophils % (0-4) % Lymphocytes % % Monocytes % % Eosinophils % % Basophils % % Neutrophils # (1.6-8.9) K/mcL Lymphocytes # (0.6-4.6) K/mcL Monocytes # (0.0-1.3) K/mcL Eosinophils # (0.0-0.6) K/mcL Basophils # (0.0-0.2) K/mcL Platelet Estimate (Normal) Immature Plt Fraction (1.1-6.1) % Hypochromasia (Not Present) Sodium 132 L (136-145) mEq/L Potassium 4.8 H (3.5-4.5) mEq/L Chloride 106 (98-109) mEq/L Carbon Dioxide 20 (19-29) mEq/L BUN 23 (8-26) mg/dL Creatinine 0.93 (0.72-1.25) mg/dL Est GFR ( Amer) > 60 (> 60) Est GFR (Non-Af Amer) > 60 (> 60) BUN/Creatinine Ratio 25 (6-26) Glucose 207 H (70-99) mg/dL POC Glucose 221 H (58-89) Calculated Osmolality 284 (280-300) Lactic Acid 1.5 (0.5-2.2) mmol/L Calcium 9.1 (8.6-10.8) mg/dL Phosphorus (2.3-4.7) mg/dL Magnesium (1.6-2.6) mg/dL Iron (65-175) mcg/dL % Saturation (20-55) % Transferrin (174-364) mg/dL Total Bilirubin (0.2-1.2) mg/dL AST (5-34) Units/L ALT (0-55) Units/L Alkaline Phosphatase (38-126) Units/L Troponin I (0-0.03) ng/mL Serum Total Protein (6.0-8.3) g/dL Albumin (3.5-5.0) g/dL Globulin (2.4-3.5) g/dL Albumin/Globulin Ratio (1.1-2.2) Vitamin B12 (213-816) pg/mL Folate (7.0-31.4) ng/mL TSH (0.350-4.840) mcIU/mL Vancomycin Trough (10-20) mcg/mL Blood Type Antibody Screen 07/24/16 07/24/16 07/24/16 Range/Units 08:24 08:24 08:24 WBC (4.3-11.1) K/mcL RBC (4.19-5.50) M/mcL Hgb (12.9-16.9) g/dL Hct (37.5-50.1) % MCV (83.0-100.0) fL MCH (28.0-33.3) pg MCHC (31.6-35.5) g/dL RDW (11.5-14.5) % Plt Count (140-400) K/mcL MPV (9.4-12.4) fL Immature Gran % (0-4) % Seg Neutrophils % % Band Neutrophils % (0-4) % Lymphocytes % % Monocytes % % Eosinophils % % Basophils % % Neutrophils # (1.6-8.9) K/mcL Lymphocytes # (0.6-4.6) K/mcL Monocytes # (0.0-1.3) K/mcL Eosinophils # (0.0-0.6) K/mcL Basophils # (0.0-0.2) K/mcL Platelet Estimate (Normal) Immature Plt Fraction (1.1-6.1) % Hypochromasia (Not Present) Sodium (136-145) mEq/L Potassium (3.5-4.5) mEq/L Chloride (98-109) mEq/L Carbon Dioxide (19-29) mEq/L BUN (8-26) mg/dL Creatinine (0.72-1.25) mg/dL Est GFR ( Amer) (> 60) Est GFR (Non-Af Amer) (> 60) BUN/Creatinine Ratio (6-26) Glucose (70-99) mg/dL POC Glucose (58-89) Calculated Osmolality (280-300) Lactic Acid (0.5-2.2) mmol/L Calcium (8.6-10.8) mg/dL Phosphorus (2.3-4.7) mg/dL Magnesium (1.6-2.6) mg/dL Iron 21 L (65-175) mcg/dL % Saturation 21 (20-55) % Transferrin 72 L (174-364) mg/dL Total Bilirubin (0.2-1.2) mg/dL AST (5-34) Units/L ALT (0-55) Units/L Alkaline Phosphatase (38-126) Units/L Troponin I (0-0.03) ng/mL Serum Total Protein (6.0-8.3) g/dL Albumin (3.5-5.0) g/dL Globulin (2.4-3.5) g/dL Albumin/Globulin Ratio (1.1-2.2) Vitamin B12 1580 H (213-816) pg/mL Folate 6.0 L (7.0-31.4) ng/mL TSH (0.350-4.840) mcIU/mL Vancomycin Trough (10-20) mcg/mL Blood Type O POSITIVE Antibody Screen NEGATIVE 07/24/16 07/24/16 07/24/16 Range/Units 11:23 16:40 20:33 WBC (4.3-11.1) K/mcL RBC (4.19-5.50) M/mcL Hgb (12.9-16.9) g/dL Hct (37.5-50.1) % MCV (83.0-100.0) fL MCH (28.0-33.3) pg MCHC (31.6-35.5) g/dL RDW (11.5-14.5) % Plt Count (140-400) K/mcL MPV (9.4-12.4) fL Immature Gran % (0-4) % Seg Neutrophils % % Band Neutrophils % (0-4) % Lymphocytes % % Monocytes % % Eosinophils % % Basophils % % Neutrophils # (1.6-8.9) K/mcL Lymphocytes # (0.6-4.6) K/mcL Monocytes # (0.0-1.3) K/mcL Eosinophils # (0.0-0.6) K/mcL Basophils # (0.0-0.2) K/mcL Platelet Estimate (Normal) Immature Plt Fraction (1.1-6.1) % Hypochromasia (Not Present) Sodium (136-145) mEq/L Potassium (3.5-4.5) mEq/L Chloride (98-109) mEq/L Carbon Dioxide (19-29) mEq/L BUN (8-26) mg/dL Creatinine (0.72-1.25) mg/dL Est GFR ( Amer) (> 60) Est GFR (Non-Af Amer) (> 60) BUN/Creatinine Ratio (6-26) Glucose (70-99) mg/dL POC Glucose 115 H 157 H 157 H (58-89) Calculated Osmolality (280-300) Lactic Acid (0.5-2.2) mmol/L Calcium (8.6-10.8) mg/dL Phosphorus (2.3-4.7) mg/dL Magnesium (1.6-2.6) mg/dL Iron (65-175) mcg/dL % Saturation (20-55) % Transferrin (174-364) mg/dL Total Bilirubin (0.2-1.2) mg/dL AST (5-34) Units/L ALT (0-55) Units/L Alkaline Phosphatase (38-126) Units/L Troponin I (0-0.03) ng/mL Serum Total Protein (6.0-8.3) g/dL Albumin (3.5-5.0) g/dL Globulin (2.4-3.5) g/dL Albumin/Globulin Ratio (1.1-2.2) Vitamin B12 (213-816) pg/mL Folate (7.0-31.4) ng/mL TSH (0.350-4.840) mcIU/mL Vancomycin Trough (10-20) mcg/mL Blood Type Antibody Screen 07/25/16 07/25/16 07/25/16 Range/Units 05:02 05:02 05:02 WBC 28.9 H (4.3-11.1) K/mcL RBC 2.83 L (4.19-5.50) M/mcL Hgb 8.0 L (12.9-16.9) g/dL Hct 23.8 L (37.5-50.1) % MCV 84.1 (83.0-100.0) fL MCH 28.3 (28.0-33.3) pg MCHC 33.6 (31.6-35.5) g/dL RDW 14.6 H (11.5-14.5) % Plt Count 410 H (140-400) K/mcL MPV 9.2 L (9.4-12.4) fL Immature Gran % (0-4) % Seg Neutrophils % % Band Neutrophils % (0-4) % Lymphocytes % % Monocytes % % Eosinophils % % Basophils % % Neutrophils # (1.6-8.9) K/mcL Lymphocytes # (0.6-4.6) K/mcL Monocytes # (0.0-1.3) K/mcL Eosinophils # (0.0-0.6) K/mcL Basophils # (0.0-0.2) K/mcL Platelet Estimate (Normal) Immature Plt Fraction (1.1-6.1) % Hypochromasia (Not Present) Sodium 131 L (136-145) mEq/L Potassium 4.3 (3.5-4.5) mEq/L Chloride 109 (98-109) mEq/L Carbon Dioxide 17 L (19-29) mEq/L BUN 21 (8-26) mg/dL Creatinine 0.84 (0.72-1.25) mg/dL Est GFR ( Amer) > 60 (> 60) Est GFR (Non-Af Amer) > 60 (> 60) BUN/Creatinine Ratio 25 (6-26) Glucose 211 H (70-99) mg/dL POC Glucose (58-89) Calculated Osmolality 281 (280-300) Lactic Acid 1.1 (0.5-2.2) mmol/L Calcium 8.9 (8.6-10.8) mg/dL Phosphorus 1.5 L (2.3-4.7) mg/dL Magnesium 1.6 (1.6-2.6) mg/dL Iron (65-175) mcg/dL % Saturation (20-55) % Transferrin (174-364) mg/dL Total Bilirubin 0.7 (0.2-1.2) mg/dL AST 22 (5-34) Units/L ALT 21 (0-55) Units/L Alkaline Phosphatase 87 (38-126) Units/L Troponin I (0-0.03) ng/mL Serum Total Protein 5.3 L (6.0-8.3) g/dL Albumin 1.3 L (3.5-5.0) g/dL Globulin 4.0 H (2.4-3.5) g/dL Albumin/Globulin Ratio 0.3 L (1.1-2.2) Vitamin B12 (213-816) pg/mL Folate (7.0-31.4) ng/mL TSH 0.855 (0.350-4.840) mcIU/mL Vancomycin Trough (10-20) mcg/mL Blood Type Antibody Screen 07/25/16 07/25/16 07/25/16 Range/Units 07:21 11:38 16:08 WBC (4.3-11.1) K/mcL RBC (4.19-5.50) M/mcL Hgb (12.9-16.9) g/dL Hct (37.5-50.1) % MCV (83.0-100.0) fL MCH (28.0-33.3) pg MCHC (31.6-35.5) g/dL RDW (11.5-14.5) % Plt Count (140-400) K/mcL MPV (9.4-12.4) fL Immature Gran % (0-4) % Seg Neutrophils % % Band Neutrophils % (0-4) % Lymphocytes % % Monocytes % % Eosinophils % % Basophils % % Neutrophils # (1.6-8.9) K/mcL Lymphocytes # (0.6-4.6) K/mcL Monocytes # (0.0-1.3) K/mcL Eosinophils # (0.0-0.6) K/mcL Basophils # (0.0-0.2) K/mcL Platelet Estimate (Normal) Immature Plt Fraction (1.1-6.1) % Hypochromasia (Not Present) Sodium (136-145) mEq/L Potassium (3.5-4.5) mEq/L Chloride (98-109) mEq/L Carbon Dioxide (19-29) mEq/L BUN (8-26) mg/dL Creatinine (0.72-1.25) mg/dL Est GFR ( Amer) (> 60) Est GFR (Non-Af Amer) (> 60) BUN/Creatinine Ratio (6-26) Glucose (70-99) mg/dL POC Glucose 235 H 151 H 140 H (58-89) Calculated Osmolality (280-300) Lactic Acid (0.5-2.2) mmol/L Calcium (8.6-10.8) mg/dL Phosphorus (2.3-4.7) mg/dL Magnesium (1.6-2.6) mg/dL Iron (65-175) mcg/dL % Saturation (20-55) % Transferrin (174-364) mg/dL Total Bilirubin (0.2-1.2) mg/dL AST (5-34) Units/L ALT (0-55) Units/L Alkaline Phosphatase (38-126) Units/L Troponin I (0-0.03) ng/mL Serum Total Protein (6.0-8.3) g/dL Albumin (3.5-5.0) g/dL Globulin (2.4-3.5) g/dL Albumin/Globulin Ratio (1.1-2.2) Vitamin B12 (213-816) pg/mL Folate (7.0-31.4) ng/mL TSH (0.350-4.840) mcIU/mL Vancomycin Trough (10-20) mcg/mL Blood Type Antibody Screen 07/25/16 07/26/16 07/26/16 Range/Units 20:55 03:41 03:41 WBC 24.6 H (4.3-11.1) K/mcL RBC 2.94 L (4.19-5.50) M/mcL Hgb 8.2 L (12.9-16.9) g/dL Hct 24.2 L (37.5-50.1) % MCV 82.3 L (83.0-100.0) fL MCH 27.9 L (28.0-33.3) pg MCHC 33.9 (31.6-35.5) g/dL RDW 14.6 H (11.5-14.5) % Plt Count 403 H (140-400) K/mcL MPV 9.2 L (9.4-12.4) fL Immature Gran % (0-4) % Seg Neutrophils % % Band Neutrophils % (0-4) % Lymphocytes % % Monocytes % % Eosinophils % % Basophils % % Neutrophils # (1.6-8.9) K/mcL Lymphocytes # (0.6-4.6) K/mcL Monocytes # (0.0-1.3) K/mcL Eosinophils # (0.0-0.6) K/mcL Basophils # (0.0-0.2) K/mcL Platelet Estimate (Normal) Immature Plt Fraction 1.0 L (1.1-6.1) % Hypochromasia (Not Present) Sodium 131 L (136-145) mEq/L Potassium 4.4 (3.5-4.5) mEq/L Chloride 109 (98-109) mEq/L Carbon Dioxide 17 L (19-29) mEq/L BUN 18 (8-26) mg/dL Creatinine 0.74 (0.72-1.25) mg/dL Est GFR ( Amer) > 60 (> 60) Est GFR (Non-Af Amer) > 60 (> 60) BUN/Creatinine Ratio 24 (6-26) Glucose 179 H (70-99) mg/dL POC Glucose 226 H (58-89) Calculated Osmolality 278 L (280-300) Lactic Acid (0.5-2.2) mmol/L Calcium 8.6 (8.6-10.8) mg/dL Phosphorus (2.3-4.7) mg/dL Magnesium (1.6-2.6) mg/dL Iron (65-175) mcg/dL % Saturation (20-55) % Transferrin (174-364) mg/dL Total Bilirubin (0.2-1.2) mg/dL AST (5-34) Units/L ALT (0-55) Units/L Alkaline Phosphatase (38-126) Units/L Troponin I (0-0.03) ng/mL Serum Total Protein (6.0-8.3) g/dL Albumin (3.5-5.0) g/dL Globulin (2.4-3.5) g/dL Albumin/Globulin Ratio (1.1-2.2) Vitamin B12 (213-816) pg/mL Folate (7.0-31.4) ng/mL TSH (0.350-4.840) mcIU/mL Vancomycin Trough (10-20) mcg/mL Blood Type Antibody Screen 07/26/16 07/26/16 07/26/16 Range/Units 03:41 07:19 11:36 WBC (4.3-11.1) K/mcL RBC (4.19-5.50) M/mcL Hgb (12.9-16.9) g/dL Hct (37.5-50.1) % MCV (83.0-100.0) fL MCH (28.0-33.3) pg MCHC (31.6-35.5) g/dL RDW (11.5-14.5) % Plt Count (140-400) K/mcL MPV (9.4-12.4) fL Immature Gran % (0-4) % Seg Neutrophils % % Band Neutrophils % (0-4) % Lymphocytes % % Monocytes % % Eosinophils % % Basophils % % Neutrophils # (1.6-8.9) K/mcL Lymphocytes # (0.6-4.6) K/mcL Monocytes # (0.0-1.3) K/mcL Eosinophils # (0.0-0.6) K/mcL Basophils # (0.0-0.2) K/mcL Platelet Estimate (Normal) Immature Plt Fraction (1.1-6.1) % Hypochromasia (Not Present) Sodium (136-145) mEq/L Potassium (3.5-4.5) mEq/L Chloride (98-109) mEq/L Carbon Dioxide (19-29) mEq/L BUN (8-26) mg/dL Creatinine (0.72-1.25) mg/dL Est GFR ( Amer) (> 60) Est GFR (Non-Af Amer) (> 60) BUN/Creatinine Ratio (6-26) Glucose (70-99) mg/dL POC Glucose 199 H 160 H (58-89) Calculated Osmolality (280-300) Lactic Acid (0.5-2.2) mmol/L Calcium (8.6-10.8) mg/dL Phosphorus (2.3-4.7) mg/dL Magnesium (1.6-2.6) mg/dL Iron (65-175) mcg/dL % Saturation (20-55) % Transferrin (174-364) mg/dL Total Bilirubin (0.2-1.2) mg/dL AST (5-34) Units/L ALT (0-55) Units/L Alkaline Phosphatase (38-126) Units/L Troponin I (0-0.03) ng/mL Serum Total Protein (6.0-8.3) g/dL Albumin (3.5-5.0) g/dL Globulin (2.4-3.5) g/dL Albumin/Globulin Ratio (1.1-2.2) Vitamin B12 (213-816) pg/mL Folate (7.0-31.4) ng/mL TSH (0.350-4.840) mcIU/mL Vancomycin Trough 21.8 H* (10-20) mcg/mL Blood Type Antibody Screen 07/26/16 07/26/16 07/26/16 Range/Units 15:55 16:07 21:27 WBC (4.3-11.1) K/mcL RBC (4.19-5.50) M/mcL Hgb (12.9-16.9) g/dL Hct (37.5-50.1) % MCV (83.0-100.0) fL MCH (28.0-33.3) pg MCHC (31.6-35.5) g/dL RDW (11.5-14.5) % Plt Count (140-400) K/mcL MPV (9.4-12.4) fL Immature Gran % (0-4) % Seg Neutrophils % % Band Neutrophils % (0-4) % Lymphocytes % % Monocytes % % Eosinophils % % Basophils % % Neutrophils # (1.6-8.9) K/mcL Lymphocytes # (0.6-4.6) K/mcL Monocytes # (0.0-1.3) K/mcL Eosinophils # (0.0-0.6) K/mcL Basophils # (0.0-0.2) K/mcL Platelet Estimate (Normal) Immature Plt Fraction (1.1-6.1) % Hypochromasia (Not Present) Sodium (136-145) mEq/L Potassium (3.5-4.5) mEq/L Chloride (98-109) mEq/L Carbon Dioxide (19-29) mEq/L BUN (8-26) mg/dL Creatinine (0.72-1.25) mg/dL Est GFR ( Amer) (> 60) Est GFR (Non-Af Amer) (> 60) BUN/Creatinine Ratio (6-26) Glucose (70-99) mg/dL POC Glucose 220 H 172 H (58-89) Calculated Osmolality (280-300) Lactic Acid (0.5-2.2) mmol/L Calcium (8.6-10.8) mg/dL Phosphorus 1.5 L (2.3-4.7) mg/dL Magnesium 1.2 L (1.6-2.6) mg/dL Iron (65-175) mcg/dL % Saturation (20-55) % Transferrin (174-364) mg/dL Total Bilirubin (0.2-1.2) mg/dL AST (5-34) Units/L ALT (0-55) Units/L Alkaline Phosphatase (38-126) Units/L Troponin I (0-0.03) ng/mL Serum Total Protein (6.0-8.3) g/dL Albumin (3.5-5.0) g/dL Globulin (2.4-3.5) g/dL Albumin/Globulin Ratio (1.1-2.2) Vitamin B12 (213-816) pg/mL Folate (7.0-31.4) ng/mL TSH (0.350-4.840) mcIU/mL Vancomycin Trough (10-20) mcg/mL Blood Type Antibody Screen 07/26/16 07/27/16 07/27/16 Range/Units 22:23 05:03 05:03 WBC 20.1 H (4.3-11.1) K/mcL RBC 2.78 L (4.19-5.50) M/mcL Hgb 7.9 L (12.9-16.9) g/dL Hct 23.3 L (37.5-50.1) % MCV 83.8 (83.0-100.0) fL MCH 28.4 (28.0-33.3) pg MCHC 33.9 (31.6-35.5) g/dL RDW 14.8 H (11.5-14.5) % Plt Count 326 (140-400) K/mcL MPV 8.7 L (9.4-12.4) fL Immature Gran % (0-4) % Seg Neutrophils % % Band Neutrophils % (0-4) % Lymphocytes % % Monocytes % % Eosinophils % % Basophils % % Neutrophils # (1.6-8.9) K/mcL Lymphocytes # (0.6-4.6) K/mcL Monocytes # (0.0-1.3) K/mcL Eosinophils # (0.0-0.6) K/mcL Basophils # (0.0-0.2) K/mcL Platelet Estimate (Normal) Immature Plt Fraction (1.1-6.1) % Hypochromasia (Not Present) Sodium 134 L (136-145) mEq/L Potassium 3.9 (3.5-4.5) mEq/L Chloride 112 H (98-109) mEq/L Carbon Dioxide 19 (19-29) mEq/L BUN 17 (8-26) mg/dL Creatinine 0.66 L (0.72-1.25) mg/dL Est GFR ( Amer) > 60 (> 60) Est GFR (Non-Af Amer) > 60 (> 60) BUN/Creatinine Ratio 26 (6-26) Glucose 129 H (70-99) mg/dL POC Glucose (58-89) Calculated Osmolality 281 (280-300) Lactic Acid 0.9 (0.5-2.2) mmol/L Calcium 8.4 L (8.6-10.8) mg/dL Phosphorus (2.3-4.7) mg/dL Magnesium (1.6-2.6) mg/dL Iron (65-175) mcg/dL % Saturation (20-55) % Transferrin (174-364) mg/dL Total Bilirubin 0.6 (0.2-1.2) mg/dL AST 19 (5-34) Units/L ALT 17 (0-55) Units/L Alkaline Phosphatase 67 (38-126) Units/L Troponin I (0-0.03) ng/mL Serum Total Protein 5.1 L (6.0-8.3) g/dL Albumin 1.2 L (3.5-5.0) g/dL Globulin 3.9 H (2.4-3.5) g/dL Albumin/Globulin Ratio 0.3 L (1.1-2.2) Vitamin B12 (213-816) pg/mL Folate (7.0-31.4) ng/mL TSH (0.350-4.840) mcIU/mL Vancomycin Trough (10-20) mcg/mL Blood Type Antibody Screen 07/27/16 07/27/16 07/27/16 Range/Units 07:43 11:51 16:13 WBC (4.3-11.1) K/mcL RBC (4.19-5.50) M/mcL Hgb (12.9-16.9) g/dL Hct (37.5-50.1) % MCV (83.0-100.0) fL MCH (28.0-33.3) pg MCHC (31.6-35.5) g/dL RDW (11.5-14.5) % Plt Count (140-400) K/mcL MPV (9.4-12.4) fL Immature Gran % (0-4) % Seg Neutrophils % % Band Neutrophils % (0-4) % Lymphocytes % % Monocytes % % Eosinophils % % Basophils % % Neutrophils # (1.6-8.9) K/mcL Lymphocytes # (0.6-4.6) K/mcL Monocytes # (0.0-1.3) K/mcL Eosinophils # (0.0-0.6) K/mcL Basophils # (0.0-0.2) K/mcL Platelet Estimate (Normal) Immature Plt Fraction (1.1-6.1) % Hypochromasia (Not Present) Sodium (136-145) mEq/L Potassium (3.5-4.5) mEq/L Chloride (98-109) mEq/L Carbon Dioxide (19-29) mEq/L BUN (8-26) mg/dL Creatinine (0.72-1.25) mg/dL Est GFR ( Amer) (> 60) Est GFR (Non-Af Amer) (> 60) BUN/Creatinine Ratio (6-26) Glucose (70-99) mg/dL POC Glucose 110 H 122 H 138 H (58-89) Calculated Osmolality (280-300) Lactic Acid (0.5-2.2) mmol/L Calcium (8.6-10.8) mg/dL Phosphorus (2.3-4.7) mg/dL Magnesium (1.6-2.6) mg/dL Iron (65-175) mcg/dL % Saturation (20-55) % Transferrin (174-364) mg/dL Total Bilirubin (0.2-1.2) mg/dL AST (5-34) Units/L ALT (0-55) Units/L Alkaline Phosphatase (38-126) Units/L Troponin I (0-0.03) ng/mL Serum Total Protein (6.0-8.3) g/dL Albumin (3.5-5.0) g/dL Globulin (2.4-3.5) g/dL Albumin/Globulin Ratio (1.1-2.2) Vitamin B12 (213-816) pg/mL Folate (7.0-31.4) ng/mL TSH (0.350-4.840) mcIU/mL Vancomycin Trough (10-20) mcg/mL Blood Type Antibody Screen 07/27/16 07/28/16 07/28/16 Range/Units 20:34 04:04 04:40 WBC 16.2 H (4.3-11.1) K/mcL RBC 2.59 L (4.19-5.50) M/mcL Hgb 7.2 L (12.9-16.9) g/dL Hct 21.5 L (37.5-50.1) % MCV 83.0 (83.0-100.0) fL MCH 27.8 L (28.0-33.3) pg MCHC 33.5 (31.6-35.5) g/dL RDW 14.8 H (11.5-14.5) % Plt Count 286 (140-400) K/mcL MPV 8.9 L (9.4-12.4) fL Immature Gran % 1.0 (0-4) % Seg Neutrophils % 76.1 % Band Neutrophils % (0-4) % Lymphocytes % 7.7 % Monocytes % 8.0 % Eosinophils % 7.1 % Basophils % 0.1 % Neutrophils # 12.3 H (1.6-8.9) K/mcL Lymphocytes # 1.3 (0.6-4.6) K/mcL Monocytes # 1.3 (0.0-1.3) K/mcL Eosinophils # 1.1 H (0.0-0.6) K/mcL Basophils # 0.0 (0.0-0.2) K/mcL Platelet Estimate (Normal) Immature Plt Fraction (1.1-6.1) % Hypochromasia (Not Present) Sodium (136-145) mEq/L Potassium (3.5-4.5) mEq/L Chloride (98-109) mEq/L Carbon Dioxide (19-29) mEq/L BUN (8-26) mg/dL Creatinine (0.72-1.25) mg/dL Est GFR ( Amer) (> 60) Est GFR (Non-Af Amer) (> 60) BUN/Creatinine Ratio (6-26) Glucose (70-99) mg/dL POC Glucose 178 H 110 H (58-89) Calculated Osmolality (280-300) Lactic Acid (0.5-2.2) mmol/L Calcium (8.6-10.8) mg/dL Phosphorus (2.3-4.7) mg/dL Magnesium (1.6-2.6) mg/dL Iron (65-175) mcg/dL % Saturation (20-55) % Transferrin (174-364) mg/dL Total Bilirubin (0.2-1.2) mg/dL AST (5-34) Units/L ALT (0-55) Units/L Alkaline Phosphatase (38-126) Units/L Troponin I (0-0.03) ng/mL Serum Total Protein (6.0-8.3) g/dL Albumin (3.5-5.0) g/dL Globulin (2.4-3.5) g/dL Albumin/Globulin Ratio (1.1-2.2) Vitamin B12 (213-816) pg/mL Folate (7.0-31.4) ng/mL TSH (0.350-4.840) mcIU/mL Vancomycin Trough (10-20) mcg/mL Blood Type Antibody Screen 07/28/16 Range/Units 04:40 WBC (4.3-11.1) K/mcL RBC (4.19-5.50) M/mcL Hgb (12.9-16.9) g/dL Hct (37.5-50.1) % MCV (83.0-100.0) fL MCH (28.0-33.3) pg MCHC (31.6-35.5) g/dL RDW (11.5-14.5) % Plt Count (140-400) K/mcL MPV (9.4-12.4) fL Immature Gran % (0-4) % Seg Neutrophils % % Band Neutrophils % (0-4) % Lymphocytes % % Monocytes % % Eosinophils % % Basophils % % Neutrophils # (1.6-8.9) K/mcL Lymphocytes # (0.6-4.6) K/mcL Monocytes # (0.0-1.3) K/mcL Eosinophils # (0.0-0.6) K/mcL Basophils # (0.0-0.2) K/mcL Platelet Estimate (Normal) Immature Plt Fraction (1.1-6.1) % Hypochromasia (Not Present) Sodium 134 L (136-145) mEq/L Potassium 3.9 (3.5-4.5) mEq/L Chloride 112 H (98-109) mEq/L Carbon Dioxide 20 (19-29) mEq/L BUN 13 (8-26) mg/dL Creatinine 0.60 L (0.72-1.25) mg/dL Est GFR ( Amer) > 60 (> 60) Est GFR (Non-Af Amer) > 60 (> 60) BUN/Creatinine Ratio 22 (6-26) Glucose 102 H (70-99) mg/dL POC Glucose (58-89) Calculated Osmolality 278 L (280-300) Lactic Acid (0.5-2.2) mmol/L Calcium 8.2 L (8.6-10.8) mg/dL Phosphorus (2.3-4.7) mg/dL Magnesium (1.6-2.6) mg/dL Iron (65-175) mcg/dL % Saturation (20-55) % Transferrin (174-364) mg/dL Total Bilirubin (0.2-1.2) mg/dL AST (5-34) Units/L ALT (0-55) Units/L Alkaline Phosphatase (38-126) Units/L Troponin I (0-0.03) ng/mL Serum Total Protein (6.0-8.3) g/dL Albumin (3.5-5.0) g/dL Globulin (2.4-3.5) g/dL Albumin/Globulin Ratio (1.1-2.2) Vitamin B12 (213-816) pg/mL Folate (7.0-31.4) ng/mL TSH (0.350-4.840) mcIU/mL Vancomycin Trough (10-20) mcg/mL Blood Type Antibody Screen
[2016-07-28] MEDS: Lactobacillus 1 EACH CAP.SPRINK PO SCH (09:32)
[2016-07-28] MEDS: Multivit/Ca/Min/Fe/FA 1 TAB TABLET PO SCH (09:33)
[2016-07-28] MEDS: Folic Acid 1 MG TABLET PO SCH (09:33)
[2016-07-28] MEDS: Ascorbic Acid 500 MG TABLET PO SCH (09:33)
[2016-07-28] MEDS: Loratadine 10 MG TABLET PO SCH (09:33)
--- NOTE | 2016-07-28 09:58 | General Surgery Procedure Note ---
Date of procedure: 07/27/16 Pre-op diagnosis: unstageable sacral decubitus ulcer Post-op diagnosis: other (Stage 4 sacral decubitus ulcer) Procedure: After informed consent was obtained and timeout performed, the patient was placed in the left lateral position. Sharp debridement was carried out with the use of pick-ups and # 10 blade scalpel. Debridement was carried out through skin , subcutaneous tissue, muscle and down to bone. There was a pocket of purulent drainage which was decompressed from the right buttock. Drained approximately a 1/2 cup of purulent drainage. There was granulation tissue exposure noted to approximately 10% of the wound. The patient tolerated the procedure well and there was minimal blood loss noted. Wound measurements 13 X 8 X 2cm with undermining noted from 3 to 6 o'clock measuring 6cm and from 6 to 9 o'clock measuring 2cm. Complications: none Anesthesia: none Surgeon: Geno De Anda Medical Physics Professor: Hans Santana Estimated blood loss (cc): 5 Pathology: none sent Condition: stable Disposition: no change
[2016-07-28] MEDS ORDERED: Zinc Sulfate 220 MG CAPSULE PO SCH (10:15)
[2016-07-28 12:41] LABS: Hematocrit 22.9 % (37.5-50.1); Hemoglobin 7.6 g/dL (12.9-16.9)
--- NOTE | 2016-07-28 13:37 | Discharge Summary ---
Date of Encounter: 07/28/16 Time of Encounter: 13:30 - Discharge Diagnosis (1) Sepsis Priority: Primary Status: Acute Qualifiers: Sepsis type: sepsis due to unspecified organism Qualified Code(s): A41.9 - Sepsis, unspecified organism (2) Bacteremia due to Enterococcus Priority: Secondary Status: Acute (3) Decubitus ulcer of sacral region, unstageable Priority: Secondary Status: Acute (4) Healthcare-associated pneumonia Priority: Secondary Status: Acute (5) Hypertension Priority: Secondary Status: Chronic Qualifiers: Hypertension type: essential hypertension Qualified Code(s): I10 - Essential (primary) hypertension (6) Hyponatremia Priority: Secondary Status: Acute (7) New onset a-fib Priority: Secondary Status: Acute (8) Normocytic anemia Priority: Secondary Status: Acute (9) Urinary tract infection Priority: Secondary Status: Acute Qualifiers: Urinary tract infection type: catheter-associated UTI Indwelling urinary catheter type: indwelling urethral catheter Encounter type: initial encounter Qualified Code(s): T83.511A - Infection and inflammatory reaction due to indwelling urethral catheter, initial encounter; N39.0 - Urinary tract infection , site not specified (10) DVT prophylaxis Priority: Secondary Status: Acute - Discharge Medications Prescriptions: Acetaminophen [Tylenol] 650 mg PO Q6HR PRN #30 tablet PRN Reason: Fever Albuterol Neb [Proventil Neb] 2.5 mg IH Q2H PRN #30 inhsol PRN Reason: Shortness Of Breath/Wheezing Cefdinir [Omnicef] 300 mg PO BID #14 capsule Docusate [Colace] 100 mg PO BID PRN #30 capsule PRN Reason: Constipation Ferrous Sulfate 325 mg PO BIDWM #60 tablet Folic Acid 1 mg PO DAILY #30 tablet Lactobacillus [Culturelle] 1 each PO BID #30 cap.sprink Magnesium Oxide [Magnesium] 400 mg PO DAILY #30 tablet Metoprolol [Lopressor] 12.5 mg PO BID #30 tablet Multivit/Ca/Min/Fe/FA [Thera M Plus] 1 tab PO DAILY #30 tablet Sodium Hypochlorite 0.25% [Dakin's (Half-Strength 0.25%)] 1 appl TP BID #1 bottle Vancomycin/0.9 % Sod Chloride [Vancomycin 1 G/100Ml-0.9% NaCl] 1 gm IV DAILY # 10 plast..bag Zinc Sulfate 220 mg PO DAILY #30 capsule Home Medications: Clopidogrel [Plavix] 75 mg PO DAILY 05/29/16 [History] Docusate [Colace] 100 mg PO DAILY 05/29/16 [History] Gabapentin [Neurontin] 300 mg PO HS 05/29/16 [History] GlipiZIDE XL (24 HR) [Glucotrol XL] 10 mg PO BID 05/29/16 [History] Loratadine [Claritin] 10 mg PO DAILY 05/29/16 [History] Oxybutynin [Ditropan] 5 mg PO DAILY 05/29/16 [History] Amlodipine [Norvasc] 5 mg PO DAILY #30 tablet 06/02/16 [Rx] Atorvastatin [Lipitor] 40 mg PO HS #30 tablet 06/02/16 [Rx] Calcium Carbonate/Vitamin D3 [Calcium 500 + Vit D Caplet] 1 each PO BID [History] Tamsulosin [Flomax] 0.4 mg PO DAILY 07/21/16 [History] Acetaminophen [Tylenol] 650 mg PO Q6HR PRN #30 tablet 07/28/16 [Rx] Albuterol Neb [Proventil Neb] 2.5 mg IH Q2H PRN #30 inhsol 07/28/16 [Rx] Cefdinir [Omnicef] 300 mg PO BID #14 capsule 07/28/16 [Rx] Docusate [Colace] 100 mg PO BID PRN #30 capsule 07/28/16 [Rx] Ferrous Sulfate 325 mg PO BIDWM #60 tablet 07/28/16 [Rx] Folic Acid 1 mg PO DAILY #30 tablet 07/28/16 [Rx] Lactobacillus [Culturelle] 1 each PO BID #30 cap.sprink 07/28/16 [Rx] Magnesium Oxide [Magnesium] 400 mg PO DAILY #30 tablet 07/28/16 [Rx] Metoprolol [Lopressor] 12.5 mg PO BID #30 tablet 07/28/16 [Rx] Multivit/Ca/Min/Fe/FA [Thera M Plus] 1 tab PO DAILY #30 tablet 07/28/16 [Rx] Sodium Hypochlorite 0.25% [Dakin's (Half-Strength 0.25%)] 1 appl TP BID #1 bottle 07/28/16 [Rx] Vancomycin/0.9 % Sod Chloride [Vancomycin 1 G/100Ml-0.9% NaCl] 1 gm IV DAILY # 10 plast..bag 07/28/16 [Rx] Zinc Sulfate 220 mg PO DAILY #30 capsule 07/28/16 [Rx] Allergies/Adverse Reactions: Allergies codeine Allergy (Verified 05/29/16 11:05) Itching morphine Allergy (Verified 05/29/16 11:05) Itching Procedures/tests Complete & Pending: Procedures Performed prior 72 hours Category Date Time Status ECG 12 lead ECG [ECG] Routine Y 07/25/16 12:37 Completed Date of admission: 07/21/16 18:36 Primary care physician: Danny Watt MD Consults: 07/21/16 19:39 Consult to Occupational Therapy [CONS] Routine Comment: Evaluate, develop and implement POC Consult to Physical Therapy [CONS] Routine Comment: Evaluate, develop and implement POC Consult to Paper Pattern Inspector [CONS] Routine Reason for SW Consult: came from [facility]. Patient's daughter does not want patient to return. will need placement on discharge 07/21/16 19:47 Consult to Wound Care [CONS] Routine Reason for Consult: unstagable sacral ulcer Call Completed: No 07/22/16 18:08 Consult to Surgery [CONS] Routine Consulting Provider: [facility] Reason for Consult: Sacral pressure ulcer Call Completed: Yes 07/25/16 16:27 Consult to Speech Therapy [CONS] Routine Comment: Evaluate, develop and implement POC Reason for Consult: possible aspiration Call Completed: No 07/26/16 00:01 Consult to Cardiology [CONS] Routine Comment: Consulting Provider: Cardiology [facility] Reason for Consult: New onset atrial fibrillatin Call Completed: No 07/26/16 11:48 Consult to Urology [CONS] Routine Consulting Provider: Urology [facility] Reason for Consult: change burr Call Completed: Yes 07/27/16 09:31 Consult to Invasive Line Access Team [CONS] Routine Reason for Consult: Picc Line Insertion; plan for IV vancomycin after discharge Line Type: PICC 07/28/16 10:04 consult to custodial maintenance worker [Consult to Nutrition] [CONS] Routine Comment: 24 hr calorie count, protein intake inadequate. Consulting Provider: NUTRITION Reason for Dietary Consult: Other Other:: consideration for PEG if intake inadequate. Discharging clinician: Dick Coreas Anticipated date of discharge: 07/28/16 - Patient Status Disposition: Transfer LTC Condition: Fair Functional capacity at discharge: uses cane/walker Overall status at discharge: patient is not back to baseline - Discharge Instructions Instructions: Atrial Fibrillation (DC), Pneumonia (DC) Follow Up With: Danny Watt MD [Primary Care Provider] - (After discharge from long-term acute care facility) - Diet and Activity Activity: as per physical therapy Diet: diabetic diet Hospital course: Mr. Eldridge is a 80 year old male with history of previous CVA, diabetes mellitus type 2, hypertension with chronic decubitus ulcer was admitted here with sepsis. He had multiple sources of infection including pneumonia, and sacral decubitus ulcer infection and urinary tract infection. She was treated with broad-spectrum antibiotics and his blood cultures and urine cultures were followed. His blood culture was positive for Enterococcus faecalis sensitive to vancomycin. His urine grew Escherichia coli sensitive to cephalosporins and Zosyn. Patient was treated with Zosyn and vancomycin. The patient's WBC count remained elevated despite IV antibiotics use and so surgery was consulted and the patient underwent debridement of his sacral decubitus ulcer and a lot of purulent discharge was cleaned out. Patient has minimal granulation tissue. Continued wound care is being done with one fourth strength Dakin solution. Repeat blood cultures have been negative. The patient will need total of at least 2 weeks of intravenous vancomycin and he will complete treatment for his pneumonia and UTI with Omnicef. The patient also has chronic indwelling Burr catheter which was changed during his stay here. This will be continued after discharge to LTAC given his sacral decubitus ulcer to promote healing. The patient has a PICC line through which IV antibiotics can be infused. Vancomycin troughs can be followed to maintain adequate vancomycin levels. Patient also has mild hyponatremia that has improved. He also developed hyperchloremic acidosis that has also improved. Patient has chronic anemia with iron deficiency and folic acid deficiency and his hemoglobin levels have maintained between 7.5 and 8 during his stay here. He will be discharged on iron supplements and folic acid supplements. - Time Spent with Patient Total time spent providing and/or coordinating discharge services: Greater than 30 minutes (45 min) - Constitutional Vitals: Temp Pulse Resp BP Pulse Ox 98.6 F 84 20 152/71 98 07/28/16 04:00 07/28/16 11:57 07/28/16 11:57 07/28/16 11:57 07/28/16 11:57 General appearance: Present: A&O X 2, pleasant, no acute distress, answers questions appropriately - Respiratory Respiratory exam: Present: CTAB. Absent: accessory muscle use, rales, rhonchi, wheezes - Cardiovascular Cardiovascular exam: Present: RRR, +S1, +S2. Absent: diastolic murmur, gallop, rubs, systolic murmur - GI/Abdominal GI/Abdominal exam: Present: normal bowel sounds, soft, no peritoneal signs. Absent: distended, tenderness - Neurological Exam Neurological exam: Present: alert, no focal deficits, strengths equal and symetr throughout. Absent: facial droop, speech deficit - Skin Skin exam: Present: dry, intact Additional comments: Unstageable sacral decubitus ulcer status post debridement - VTE Documentation of Mechanical Device: Graduated compression elastic hosiery - Attending Attestation This document has been at least partially created by [employer] recognition technology by Dr. Coreas. Errors in grammar, wording or other phrases may exist. If errors are found after the documentation is signed, they will be addressed individually in the addendum section of this document when appropriate.
--- NOTE | 2016-07-28 13:46 | Physician Discharge Referral ---
ExtendedCare Referral Info Transfer To: LTAC Institutional Level of Care: Skilled (LTAC) - Diagnosis (1) Sepsis Priority: Primary Status: Acute (2) Bacteremia due to Enterococcus Priority: Secondary Status: Acute (3) Decubitus ulcer of sacral region, unstageable Priority: Secondary Status: Acute (4) Healthcare-associated pneumonia Priority: Secondary Status: Acute (5) Hypertension Priority: Secondary Status: Chronic (6) Hyponatremia Priority: Secondary Status: Acute (7) New onset a-fib Priority: Secondary Status: Acute (8) Normocytic anemia Priority: Secondary Status: Acute (9) Urinary tract infection Priority: Secondary Status: Acute (10) DVT prophylaxis Priority: Secondary Status: Acute Prognosis: Fair Aware of Diagnosis: Patient Aware of Prognosis: Patient - Transfer Medications Prescriptions: Acetaminophen [Tylenol] 650 mg PO Q6HR PRN #30 tablet PRN Reason: Fever Albuterol Neb [Proventil Neb] 2.5 mg IH Q2H PRN #30 inhsol PRN Reason: Shortness Of Breath/Wheezing Cefdinir [Omnicef] 300 mg PO BID #14 capsule Docusate [Colace] 100 mg PO BID PRN #30 capsule PRN Reason: Constipation Folic Acid 1 mg PO DAILY #30 tablet Lactobacillus [Culturelle] 1 each PO BID #30 cap.sprink Magnesium Oxide [Magnesium] 400 mg PO DAILY #30 tablet Metoprolol [Lopressor] 12.5 mg PO BID #30 tablet Multivit/Ca/Min/Fe/FA [Thera M Plus] 1 tab PO DAILY #30 tablet Sodium Hypochlorite 0.25% [Dakin's (Half-Strength 0.25%)] 1 appl TP BID #1 bottle Vancomycin/0.9 % Sod Chloride [Vancomycin 1 G/100Ml-0.9% NaCl] 1 gm IV DAILY # 10 plast..bag Zinc Sulfate 220 mg PO DAILY #30 capsule Home Medications: Clopidogrel [Plavix] 75 mg PO DAILY 05/29/16 [History] Docusate [Colace] 100 mg PO DAILY 05/29/16 [History] Gabapentin [Neurontin] 300 mg PO HS 05/29/16 [History] GlipiZIDE XL (24 HR) [Glucotrol XL] 10 mg PO BID 05/29/16 [History] Loratadine [Claritin] 10 mg PO DAILY 05/29/16 [History] Oxybutynin [Ditropan] 5 mg PO DAILY 05/29/16 [History] Amlodipine [Norvasc] 5 mg PO DAILY #30 tablet 06/02/16 [Rx] Atorvastatin [Lipitor] 40 mg PO HS #30 tablet 06/02/16 [Rx] Calcium Carbonate/Vitamin D3 [Calcium 500 + Vit D Caplet] 1 each PO BID [History] Tamsulosin [Flomax] 0.4 mg PO DAILY 07/21/16 [History] Acetaminophen [Tylenol] 650 mg PO Q6HR PRN #30 tablet 07/28/16 [Rx] Albuterol Neb [Proventil Neb] 2.5 mg IH Q2H PRN #30 inhsol 07/28/16 [Rx] Cefdinir [Omnicef] 300 mg PO BID #14 capsule 07/28/16 [Rx] Docusate [Colace] 100 mg PO BID PRN #30 capsule 07/28/16 [Rx] Folic Acid 1 mg PO DAILY #30 tablet 07/28/16 [Rx] Lactobacillus [Culturelle] 1 each PO BID #30 cap.sprink 07/28/16 [Rx] Magnesium Oxide [Magnesium] 400 mg PO DAILY #30 tablet 07/28/16 [Rx] Metoprolol [Lopressor] 12.5 mg PO BID #30 tablet 07/28/16 [Rx] Multivit/Ca/Min/Fe/FA [Thera M Plus] 1 tab PO DAILY #30 tablet 07/28/16 [Rx] Sodium Hypochlorite 0.25% [Dakin's (Half-Strength 0.25%)] 1 appl TP BID #1 bottle 07/28/16 [Rx] Vancomycin/0.9 % Sod Chloride [Vancomycin 1 G/100Ml-0.9% NaCl] 1 gm IV DAILY # 10 plast..bag 07/28/16 [Rx] Zinc Sulfate 220 mg PO DAILY #30 capsule 07/28/16 [Rx] Allergies/Adverse Reactions: Allergies codeine Allergy (Verified 05/29/16 11:05) Itching morphine Allergy (Verified 05/29/16 11:05) Itching - Respiratory Orders Smoking Cessation: Smoking cessation has been advised. For more information, call the [place] Tobacco Quit Line at 6-115-JWWF-NOW. - Lab Orders Lab Orders: Other (include drug levels w/frequency) (Vancomycin trough levels every 3 days, CBC, BMP on 08/02/16) - Ancillary Orders May use pressure relief devices daily prn, May consult with Dentist, Dance Critic, Phy Therapist PRN - Advance Directives Code Status: Full Code - Mobility Orders Other (per PT/ OT) - Rehabiliation Orders Rehab Orders: Evaluation for Physical Therapy, Evaluation for Occupational Therapy - Treatments Skin tear care topically daily PRN per policy List/Other: Cleanse sacral ulcer with soap and water, pack wound with kerlex roll moistened with 1/4 strength Dakins solution, cover with ABD pad and tape to secure BID - Diet Orders Cardiac (and CCD) CERTIFICATION: I certify that the transfer of the above named patient to an Extended Care Facility is necessary for the continuing treatment of the diagnosis listed. The above information is true and accurate reflection of patient's current condition. Confidential - Redisclosure prohibited without a patient's written consent.
[2016-07-28 15:29] VITALS: BP 146/84
== END 2016-07-28 16:35 | DRG 853 ==
LOC: EMEROO 15:09 → SUATTDRO 18:36 → 2NNU 18:36
PROVIDERS: ADMIT Internal Medicine; ATTEND Internal Medicine